=== PATIENT | female | born 1970 | race Caucasian/White ===

== ENCOUNTER → 2017-07-15 | Outpatient (CLI) | payer OTHER ==
--- NOTE | 2017-07-16 10:27 | US ---
EXAMINATION TYPE: US kidneys/renal and bladder DATE OF EXAM: 07/15/2017 COMPARISON: NONE CLINICAL HISTORY: R10.9 L flank pain N28.9 Hx Kidney Stones. EXAM MEASUREMENTS: Right Kidney: 10.1 x 5.0 x 4.5 cm Left Kidney: 10.6 x 5.2 x 5.9 cm Large body habitus. Right Kidney: No hydro or masses seen Left Kidney: No hydro or masses seen Bladder: wnl, incompletely distended with somewhat limited evaluation There is no evidence for hydronephrosis at this point in time. No nephrolithiasis is seen. No mert s are identified. The urinary bladder is anechoic. IMPRESSION: Normal renal ultrasound
== END | disposition home or self-care (01) ==
LOC: RADUSWWP 15:30
PROVIDERS: ATTEND Internal Medicine
DX: R10.9 Unspecified abdominal pain (principal); N28.9 Disorder of kidney and ureter, unspecified; Z87.442 Personal history of urinary calculi
CPT/HCPCS: 76770

== ENCOUNTER → 2017-08-12 | Day surgery (SDC) | payer OTHER ==
[2017-08-06 17:34] VITALS: BMI 40.6
[~2017-08-12] MED LIST: GLYCOPYRROLATE 0.2 MG/ML 2 ML VIAL ONE; LACTATED RINGERS 1,000 ML IV SCH; LIDOCAINE 1% 20 ML VIAL (10MG/ML) FOR IV START INTRADERMA PRN; LIDOCAINE 1% INJ 10MG/ML (20 ML MDV) ONE; PROPOFOL 10 MG/ML 20 ML VIAL IV ONE
--- NOTE | 2017-08-12 08:54 | P.GSHP ---
History of Present Illness H&P Date: 08/12/17 CHIEF COMPLAINT: GERD HISTORY OF PRESENT ILLNESS: The patient is a 46-year-old female who presents reports gastroesophageal reflux disease. Upper endoscopy was offered for further evaluation and management. PAST MEDICAL HISTORY: Please see list. PAST SURGICAL HISTORY: Please see list. MEDICATIONS: Please see list. ALLERGIES: Please see list. SOCIAL HISTORY: No illicit drug use FAMILY HISTORY: No reports of Crohn disease or ulcerative colitis. REVIEW OF ORGAN SYSTEMS: CONSTITUTIONAL: No reports of fevers or chills. GI: Denies any blood in stools or constipation. PHYSICAL EXAM: VITAL SIGNS: Stable GENERAL: Well-developed and pleasant in no acute distress. HEENT: No scleral icterus. Extraocular movements grossly intact. Moist buccal mucosa. NECK: Supple without lymphadenopathy. CHEST: Unlabored respirations. Equal bilateral excursions. CARDIOVASCULAR: Regular rate and rhythm. Distal 2+ pulses. ABDOMEN: Soft, nondistended. MUSCULOSKELETAL: No clubbing, cyanosis, or edema. ASSESSMENT: 1. Gastroesophageal reflux disease PLAN: 1. Recommend proceeding with an upper endoscopy Past Medical History Past Medical History: GERD/Reflux, Hyperlipidemia, Osteoarthritis (OA) Additional Past Medical History / Comment(s): NASAL ALLERGY SYMPTOMS. History of Any Multi-Drug Resistant Organisms: None Reported Past Surgical History: Orthopedic Surgery, Tubal Ligation, Uterine Ablation Additional Past Surgical History / Comment(s): HANS KNEE SCOPES Past Anesthesia/Blood Transfusion Reactions: No Reported Reaction Smoking Status: Never smoker - Past Family History Mother Family Medical History: Cancer, COPD Father Family Medical History: Cancer Medications and Allergies Home Medications Medication Instructions Recorded Confirmed Type Loratadine [Claritin] 10 mg PO DAILY 05/11/16 08/06/17 History Sertraline [Zoloft] 50 mg PO BID 05/11/16 08/06/17 History rOPINIRole HCL [Requip] 1 mg PO HS 05/11/16 08/06/17 History ALPRAZolam [Xanax] 0.5 mg PO TID PRN 07/29/17 08/06/17 History Atorvastatin [Lipitor] 10 mg PO HS 07/29/17 08/06/17 History Metoprolol Succinate (ER) [Toprol 25 mg PO HS 07/29/17 08/06/17 History Xl] Acetaminophen [Tylenol Extra 500 - 1,000 mg PO Q6H PRN 08/06/17 08/06/17 History Strength] Calcium Carbonate [Tums] 500 - 1,000 mg PO QID PRN 08/06/17 08/06/17 History Estrogen,Con/M-Progest Acet 1 each PO DAILY 08/06/17 08/06/17 History [Prempro 0.625-2.5 mg Tablet] Omeprazole Magnesium [Prilosec OTC] 20 mg PO DAILY PRN 08/06/17 08/06/17 History diphenhydrAMINE [Benadryl] 25 mg PO QID PRN 08/06/17 08/06/17 History Allergies Allergy/AdvReac Type Severity Reaction Status Date / Time No Known Allergies Allergy Verified 08/06/17 17:10
[2017-08-12 11:46] VITALS: TEMP 97.9
--- NOTE | 2017-08-12 12:27 | P.PCN ---
Date of Procedure: 08/12/17 Description of Procedure: PREOPERATIVE DIAGNOSIS: Gastroesophageal reflux disease. Morbid obesity. POSTOPERATIVE DIAGNOSIS: Morbid obesity. Gastritis. Gastroesophageal reflux disease. Diaphragmatic hiatal hernia without obstruction. Erosive esophagitis. Duodenitis. OPERATION: Esophagogastroduodenoscopy with biopsies along antrum. SURGEON: Renetta Bowre MD ANESTHESIA: MAC. INDICATIONS: The patient is a 46-year-old female who presents with a history of reflux disease. Benefits and risks of the procedure were described. Informed consent was obtained. DESCRIPTION: The patient was brought into the endoscopy suite and laid in the left lateral decubitus position. An Olympus gastroscope was passed along the posterior oropharynx down to the distal esophagus where the squamocolumnar junction was encountered at 36 cm from the incisors. The stomach was entered and no bile reflux was found. Additional findings are listed below. Biopsies with cold forceps were obtained of the antrum. The first through third portion of the duodenum was examined and unremarkable. Retroflexion of the scope confirmed Hill grade 2 lower esophageal valve. The squamocolumnar junction demostrated acute LA grade C erosive esophagitis. The stomach was desufflated. The patient tolerated the procedure well. FINDINGS: Squamocolumnar junction 36 cm from the incisors. Diaphragmatic hiatus at 34 cm. Hiatal hernia 2 cm. Hill grade 2 lower esophageal valve. LA grade C erosive esophagitis. Active duodenitis. Gastritis. RECOMMENDATIONS: Further recommendations pending results of pathology report. Upper endoscopy as needed. Will benefit from antireflux surgical procedure Plan - Discharge Summary New Discharge Prescriptions: No Action rOPINIRole HCL [Requip] 1 mg PO HS Sertraline [Zoloft] 50 mg PO BID Loratadine [Claritin] 10 mg PO DAILY Metoprolol Succinate (ER) [Toprol Xl] 25 mg PO HS ALPRAZolam [Xanax] 0.5 mg PO TID PRN PRN Reason: Anxiety Atorvastatin [Lipitor] 10 mg PO HS Acetaminophen [Tylenol Extra Strength] 500 - 1,000 mg PO Q6H PRN PRN Reason: Pain Estrogen,Con/M-Progest Acet [Prempro 0.625-2.5 mg Tablet] 1 each PO DAILY diphenhydrAMINE [Benadryl] 25 mg PO QID PRN PRN Reason: ALLERGY SX Omeprazole Magnesium [Prilosec OTC] 20 mg PO DAILY PRN PRN Reason: GERD Calcium Carbonate [Tums] 500 - 1,000 mg PO QID PRN PRN Reason: GERD Discharge Medication List Loratadine [Claritin] 10 mg PO DAILY 05/11/16 [History] Sertraline [Zoloft] 50 mg PO BID 05/11/16 [History] rOPINIRole HCL [Requip] 1 mg PO HS 05/11/16 [History] ALPRAZolam [Xanax] 0.5 mg PO TID PRN 07/29/17 [History] Atorvastatin [Lipitor] 10 mg PO HS 07/29/17 [History] Metoprolol Succinate (ER) [Toprol Xl] 25 mg PO HS 07/29/17 [History] Acetaminophen [Tylenol Extra Strength] 500 - 1,000 mg PO Q6H PRN 08/06/17 [ History] Calcium Carbonate [Tums] 500 - 1,000 mg PO QID PRN 08/06/17 [History] Estrogen,Con/M-Progest Acet [Prempro 0.625-2.5 mg Tablet] 1 each PO DAILY [History] Omeprazole Magnesium [Prilosec OTC] 20 mg PO DAILY PRN 08/06/17 [History] diphenhydrAMINE [Benadryl] 25 mg PO QID PRN 08/06/17 [History]
[2017-08-12 13:09] VITALS: BP 110/71; PULSE 69; RESP 18
== END | disposition home or self-care (01) ==
LOC: ORWHC2ENDO 10:16
PROVIDERS: ATTEND Surgery Plastic and Reconstructive Surgery
DX: K29.50 Unspecified chronic gastritis without bleeding (principal); K21.0 Gastro-esophageal reflux disease with esophagitis; K44.9 Diaphragmatic hernia without obstruction or gangrene; K29.80 Duodenitis without bleeding; E66.01 Morbid (severe) obesity due to excess calories; E78.5 Hyperlipidemia, unspecified; M19.90 Unspecified osteoarthritis, unspecified site; F41.9 Anxiety disorder, unspecified; F32.9 Major depressive disorder, single episode, unspecified; Z98.51 Tubal ligation status; Z79.899 Other long term (current) drug therapy
CPT/HCPCS: 81025; 88305; 88342; 43239; J2001; J2704

== ENCOUNTER → 2017-09-17 | Outpatient (CLI) | payer OTHER ==
[2017-09-17 10:39] VITALS: BP 111/65; PULSE 75; RESP 16; TEMP 98.6; BMI 39.7
--- NOTE | 2017-10-28 22:18 | P.PN ---
Subjective Progress Note Date: 09/17/17 DATE OF SERVICE: 09/17/2017 CHIEF COMPLAINT: Bariatric assessment HISTORY OF PRESENT ILLNESS: Spencer Juares is a 47-year-old female who presented to the bariatric center one month ago July 2017. She reports troubles with eating. She reports epigastric abdominal pain. She has been taking omeprazole with some improvement. Separately she does complain of lower abdominal pain. She has family history of irritable bowel syndrome also within her daughter. Her gallbladder is still present. She had completed an upper endoscopy. She is evaluating for sleeve gastrectomy. Now she presents for further evaluation and management. She has been undergoing medical supervised weight loss. At her height of 5 foot 4.25 inches, her ideal body weight is 144 pounds. Her presenting weight was 241 pounds. Body mass index was 41.2. Today she comes in weighing 233 pounds. Body mass index reduced to 39.8. She is 89 pounds overweight. PAST MEDICAL HISTORY: 1. Morbid obesity. 2. Body mass index 41.2 3. Seasonal ALLERGIES. 4. Obstructive sleep apnea. 5. Osteoarthritis of the hips 6. Hypertensive heart disease. 7. Gastroesophageal reflux disease 8. Anxiety. 9. Depression. 10. Hyperlipidemia. 11. Degenerative joint disease. 12. Asthma. 13. Restless leg syndrome. PAST SURGICAL HISTORY: 1. Tubal Ligation 2. Uterine ablation. 3. Orthopedic procedure. 4. Upper endoscopy. HOME MEDICATIONS: 1. Zoloft. 2. Requip. 3. Toprol XL. 4. Claritin. 5. Xanax. 6. Lipitor. 7. Omeprazole. ALLERGIES: Denies. SOCIAL HISTORY: No active tobacco use. FAMILY HISTORY: No family history of ulcerative colitis disease or Crohn's disease. She does have a family history of morbid obesity. She denies any lupus in her family. No reports of stomach or esophageal cancer. REVIEW OF ORGAN SYSTEMS: CONSTITUTIONAL: Her present weight was 241 pounds. At her height of 5 foot 4.25 inches, her ideal body weight is 144 pounds. She has lost 8 pounds in 1 month. HEENT: Denies any active troubles with hearing or vision. No troubles with swallowing. ENDOCRINE: No diabetes. No hypothyroidism. CARDIOVASCULAR: No reports of palpitations or heart attacks or chest pain. Has hypertension. Has hyperlipidemia. RESPIRATORY: Has daytime somnolence including snoring and sleep apnea. No asthma. Has seasonal ALLERGIES. GI: Denies any bright red blood per rectum or constipation. Does have gastroesophageal reflux disease. MUSCULOSKELETAL: Has lower back pain, left hip and right knee pain. No scoliosis. History of left heel spur. NEURO: Has headaches. No seizure disorders. PSYCH: Has depression without suicidal ideation. Has anxiety. RHEUMATOLOGIC: No lupus. No rheumatoid arthritis. HEMATOLOGIC: Denies any abnormal bleeding or bruising. No personal history of DVTs. SKIN: No rash. No skin cancer. PHYSICAL EXAM: VITAL SIGNS: Height 5 foot 4.25 inches, weight 233 pounds. BMI 39.8 Vital Signs Temp 98.6 F 09/17/17 10:19 Pulse 75 09/17/17 10:19 Resp 16 09/17/17 10:19 BP 111/65 09/17/17 10:19 Pulse Ox GENERAL: Well-developed female in no acute distress. HEENT: No scleral icterus. Extraocular movements grossly intact. Hears conversational speech. No nasal drainage. NECK: Supple without lymphadenopathy. CHEST: Nonlabored respirations with equal bilateral excursions. CARDIOVASCULAR: Regular rate. Distal 2+ pulses. ABDOMEN: Obese, soft, nontender, nondistended. MUSCULOSKELETAL: No clubbing, cyanosis. No pitting edema. Gross strength 5/5 distal lower extremities. NEURO: No focal or lateralizing signs. Cranial nerves 2 through 12 grossly within normal limits. PSYCH: Appropriate affect. Alert and oriented to person, place and time. SKIN: Good skin turgor. Well perfused. LABS: Laboratory Last Values WBC 6.2 k/uL (3.8-10.6) 07/29/17 17:14 RBC 4.35 m/uL (3.80-5.40) 07/29/17 17:14 Hgb 13.0 gm/dL (11.4-16.0) 07/29/17 17:14 Hct 39.9 % (34.0-46.0) 07/29/17 17:14 MCV 91.6 fL (80.0-100.0) 07/29/17 17:14 MCH 29.9 pg (25.0-35.0) 07/29/17 17:14 MCHC 32.6 g/dL (31.0-37.0) 07/29/17 17:14 RDW 13.2 % (11.5-15.5) 07/29/17 17:14 Plt Count 265 k/uL (150-450) 07/29/17 17:14 Sodium 138 mmol/L (137-145) 07/29/17 17:14 Potassium 4.3 mmol/L (3.5-5.1) 07/29/17 17:14 Chloride 108 mmol/L (98-107) H 07/29/17 17:14 Carbon Dioxide 24 mmol/L (22-30) 07/29/17 17:14 Anion Gap 6 mmol/L 07/29/17 17:14 BUN 21 mg/dL (7-17) H 07/29/17 17:14 Creatinine 0.80 mg/dL (0.52-1.04) 07/29/17 17:14 Est GFR (MDRD) Af Amer >60 (>60 ml/min/1.73 sqM) 07/29/17 17:14 Est GFR (MDRD) Non-Af >60 (>60 ml/min/1.73 sqM) 07/29/17 17:14 Glucose 92 mg/dL (74-99) 07/29/17 17:[address] Glu mg/dL 94 07/29/17 17:14 Hemoglobin A1c 4.9 % (4.0-6.0) 07/29/17 17:14 Calcium 9.0 mg/dL (8.4-10.2) 07/29/17 17:14 Iron 45 ug/dL (50-170) L 07/29/17 17:14 TIBC 337 ug/dL (228-460) 07/29/17 17:14 Iron Saturation 13.35 (12.00-45.00) 07/29/17 17:14 Ferritin 71.3 ng/mL (10.0-291.0) 07/29/17 17:14 Total Bilirubin 0.5 mg/dL (0.2-1.3) 07/29/17 17:14 AST 19 U/L (14-36) 07/29/17 17:14 ALT 24 U/L (9-52) 07/29/17 17:14 Alkaline Phosphatase 80 U/L (38-126) 07/29/17 17:14 Total Protein 6.9 g/dL (6.3-8.2) 07/29/17 17:14 Albumin 4.0 g/dL (3.5-5.0) 07/29/17 17:14 Triglycerides 132 mg/dL (<150) 07/29/17 17:14 Cholesterol 175 mg/dL (<200) 07/29/17 17:14 LDL Cholesterol, Calc 79 mg/dL (0-99) 07/29/17 17:14 HDL Cholesterol 70 mg/dL (40-60) H 07/29/17 17:14 Vitamin B1 47 ug/L (38-122) 07/29/17 17:14 Vitamin B12 250.0 pg/mL (200.0-944.0) 07/29/17:14 Vitamin D 25-Hydroxy 31.4 ng/mL (30.0-100.0) 07/29/17 17:14 Folate 7.3 ng/mL 07/29/17 17:14 TSH 1.330 mIU/L (0.465-4.680) 07/29/17 17:14 EKG EKG PERFORMED 07/29/17 17:14 Iron is low. HDL is high. EKG reviewed in normal sinus rhythm. FINDINGS: Squamocolumnar junction 36 cm from the incisors. Diaphragmatic hiatus at 34 cm. Hiatal hernia 2 cm. Hill grade 2 lower esophageal valve. LA grade C erosive esophagitis. Active duodenitis. Gastritis. Final Pathologic Diagnosis A. STOMACH, BIOPSY: CHRONIC GASTRITIS. HELICOBACTER IMMUNOPEROXIDASE STAIN IS PERFORMED TO EVALUATE FOR HELICOBACTER ORGANISMS AND IS NEGATIVE (CONTROLS APPROPRIATE). B. ESOPHAGUS, BIOPSY: SQUAMOGLANDULAR MUCOSA CONSISTENT WITH GASTROESOPHAGEAL JUNCTION DEMONSTRATING FEATURES SUGGESTIVE OF CHRONIC ESOPHAGITIS AND ACUTE AND CHRONIC INFLAMMATION OF THE GASTRIC TYPE GLANDULAR MUCOSA. NEGATIVE FOR INTESTINAL METAPLASIA. ASSESSMENT: 1. Morbid obesity. 2. Body mass index 41.2 down to 39.8. 3. Seasonal ALLERGIES. 4. Obstructive sleep apnea. 5. Osteoarthritis of the hips 6. Hypertensive heart disease. 7. Gastroesophageal reflux disease 8. Anxiety. 9. Depression. 10. Hyperlipidemia. 11. Degenerative joint disease. 12. Asthma. 13. Restless leg syndrome. 14. Family history of morbid obesity. 15. Diaphragmatic hiatal hernia. 16. Iron deficiency. PLAN: 1. She is looking into the sleeve gastrectomy however she has severe gastroesophageal reflux disease. She reported intolerance to omeprazole. As a result, she has been started on Zantac instead. 2. Alternatively, she is aware of that one bariatric procedure per lifetime is the goal. She complains of moderate gastroesophageal reflux disease with findings of a diaphragmatic hiatal hernia. Options including hiatal hernia repair initially was described. In the interim, she will still undergo medical supervised weight loss for her bariatric procedure. 3. Recommend iron supplement. 4. Completion of the evaluation and treatment for obstructive sleep apnea. 5. She is completing medical supervised weight loss for at least 6 months. 6. She has a family history of irritable bowel syndrome. Recommend Bentyl. 7. Also recommend evaluation for gallbladder disease with her family history of gallbladder disorder. Objective - Vital Signs Vital signs: Vital Signs Temp 98.6 F 09/17/17 10:19 Pulse 75 09/17/17 10:19 Resp 16 09/17/17 10:19 BP 111/65 09/17/17 10:19 Pulse Ox Intake & Output 09/16/17 09/17/17 09/17/17 18:59 06:59 18:59 Weight 105.885 kg
== END | disposition home or self-care (01) ==
LOC: BARWHC3 10:08
PROVIDERS: ATTEND Surgery Plastic and Reconstructive Surgery
DX: Z48.815 Encounter for surgical aftercare following surgery on the digestive system (principal); E66.01 Morbid (severe) obesity due to excess calories; G47.33 Obstructive sleep apnea (adult) (pediatric); M16.0 Bilateral primary osteoarthritis of hip; I11.9 Hypertensive heart disease without heart failure; K21.9 Gastro-esophageal reflux disease without esophagitis; F41.9 Anxiety disorder, unspecified; F32.9 Major depressive disorder, single episode, unspecified; E78.5 Hyperlipidemia, unspecified; M19.90 Unspecified osteoarthritis, unspecified site; J45.909 Unspecified asthma, uncomplicated; G25.81 Restless legs syndrome; K44.9 Diaphragmatic hernia without obstruction or gangrene; E61.1 Iron deficiency; Z68.39 Body mass index [BMI] 39.0-39.9, adult; Z79.899 Other long term (current) drug therapy; Z98.890 Other specified postprocedural states
CPT/HCPCS: 99211

== ENCOUNTER → 2017-11-09 | Outpatient (CLI) | payer OTHER ==
[2017-11-09 14:26] LABS: ALT 21 U/L (9-52); AST 21 U/L (14-36); Alkaline Phosphatase 87 U/L (38-126); Anion Gap 10 mmol/L; Blood Urea Nitrogen 24 mg/dL (7-17); Calcium 9.5 mg/dL (8.4-10.2); Carbon Dioxide 24 mmol/L (22-30); Chloride 106 mmol/L (98-107); Glucose 90 mg/dL (74-99); Sodium 140 mmol/L (137-145); Total Bilirubin 0.6 mg/dL (0.2-1.3); Total Protein 6.8 g/dL (6.3-8.2)
[2017-11-09 14:48] LABS: Basophils % (A) 1 %; Eosinophils # (A) 0.2 k/uL (0-0.7); Eosinophils % (A) 3 %; HCT 38.8 % (34.0-46.0); HGB 12.4 gm/dL (11.4-16.0); Lymphocytes # (A) 1.8 k/uL (1.0-4.8); Lymphocytes % (A) 27 %; MCH 29.4 pg (25.0-35.0); MCHC 32.1 g/dL (31.0-37.0); MCV 91.9 fL (80.0-100.0); Mean Platelet Volume 7.9; Monocytes # (A) 0.4 k/uL (0-1.0); Monocytes % (A) 6 %; Neutrophils # (A) 4.1 k/uL (1.3-7.7); Neutrophils % (A) 61 %; Platelet Count 237 k/uL (150-450); RBC 4.22 m/uL (3.80-5.40); RDW 12.4 % (11.5-15.5); WBC 6.7 k/uL (3.8-10.6)
== END | disposition home or self-care (01) ==
LOC: LABPAT 13:02
PROVIDERS: ATTEND Surgery Plastic and Reconstructive Surgery
DX: Z01.812 Encounter for preprocedural laboratory examination (principal)
CPT/HCPCS: 36415; 80053; 85025

== ENCOUNTER 2017-11-16 11:34 | Day surgery (SDC) | payer OTHER ==
--- NOTE | 2017-11-15 16:40 | P.GSHP ---
History of Present Illness H&P Date: 11/16/17 CHIEF COMPLAINT: Paraesophageal hiatal hernia with gastroesophageal reflux disease. HISTORY OF PRESENT ILLNESS: The patient is a 47-year-old female who presents with paraesophageal hiatal hernia. She has completed an esophageal manometry including upper endoscopy workup. Now she presents for surgical intervention. PAST MEDICAL HISTORY: Please see list. PAST SURGICAL HISTORY: Please see list. MEDICATIONS: Please see list. ALLERGIES: Please see list. SOCIAL HISTORY: No illicit drug use FAMILY HISTORY: No reports of Crohn disease or ulcerative colitis. REVIEW OF ORGAN SYSTEMS: CONSTITUTIONAL: No reports of fevers or chills. GI: Denies any blood in stools or constipation. PHYSICAL EXAM: VITAL SIGNS: Stable GENERAL: Well-developed pleasant and in no acute distress. HEENT: No scleral icterus. Extraocular movements grossly intact. Moist buccal mucosa. NECK: Supple without lymphadenopathy. CHEST: Unlabored respirations. Equal bilateral excursions. CARDIOVASCULAR: Regular rate and rhythm. Distal 2+ pulses. ABDOMEN: Soft, nondistended. No peritoneal signs. MUSCULOSKELETAL: No clubbing, cyanosis, or edema. ASSESSMENT: 1. Diaphragmatic paraesophageal hiatal hernia with severe gastroesophageal reflux disease. PLAN: 1. Recommend proceeding with a robotic laparoscopic paraesophageal hiatal hernia with possible mesh. 2. Benefits and risks of surgical intervention was discussed including possibility of open technique. 3. Inpatient hospitalization recommended of 2 nights or less. 4. DVT prophylaxis. 5. Antibiotic prophylaxis. Past Medical History Past Medical History: GERD/Reflux, Hyperlipidemia, Osteoarthritis (OA) Additional Past Medical History / Comment(s): hiatal hernia, abdominla pain with eatting, anemia, History of Any Multi-Drug Resistant Organisms: None Reported Past Surgical History: Orthopedic Surgery, Tubal Ligation, Uterine Ablation Additional Past Surgical History / Comment(s): HANS KNEE arthroscopy, Past Anesthesia/Blood Transfusion Reactions: No Reported Reaction Smoking Status: Never smoker - Past Family History Mother Family Medical History: Cancer Father Family Medical History: Cancer Brother(s) Family Medical History: Cancer Medications and Allergies Home Medications Medication Instructions Recorded Confirmed Type ALPRAZolam [Xanax] 0.5 mg PO TID PRN 07/29/17 11/05/17 History Atorvastatin [Lipitor] 10 mg PO HS 07/29/17 11/05/17 History Estrogen,Con/M-Progest Acet 1 each PO DAILY 08/06/17 11/05/17 History [Prempro 0.625-2.5 mg Tablet] diphenhydrAMINE [Benadryl] 25 mg PO DAILY PRN 08/06/17 11/05/17 History Omeprazole 40 mg PO DAILY #30 capsule. 08/12/17 11/05/17 Rx Ferrous Sulfate [Feosol] 325 mg PO DAILY 09/17/17 11/05/17 History Dicyclomine [Bentyl] 10 mg PO QID PRN 11/05/17 11/05/17 History L.acidoph,Paracasei, B.lactis 1 each PO HS 11/05/17 11/05/17 History [Probiotic] Loratadine [Claritin] 10 mg PO HS 11/05/17 11/05/17 History Multivitamins, Thera [Multivitamin 1 tab PO DAILY 11/05/17 11/05/17 History (formulary)] Sertraline [Zoloft] 100 mg PO BID 11/05/17 11/05/17 History rOPINIRole HCL [Requip] 2 mg PO HS 11/05/17 11/05/17 History Allergies Allergy/AdvReac Type Severity Reaction Status Date / Time No Known Allergies Allergy Verified 11/05/17 11:44
[~2017-11-16 11:34] MED LIST changes: +CHLORHEXIDINE GLUCONATE 15 ML CUP MUCOUS MEM ONE; +ENOXAPARIN 40 MG/0.4 ML SYRINGE SQ STA; -GLYCOPYRROLATE 0.2 MG/ML 2 ML VIAL ONE; -LACTATED RINGERS 1,000 ML IV SCH; -LIDOCAINE 1% 20 ML VIAL (10MG/ML) FOR IV START INTRADERMA PRN; -LIDOCAINE 1% INJ 10MG/ML (20 ML MDV) ONE; +MIDAZOLAM 2 MG/2 ML VIAL IV PRN; +MORPHINE SULFATE 4 MG/ML SYRINGE IV PRN; -PROPOFOL 10 MG/ML 20 ML VIAL IV ONE; +ceFAZolin IN SWFI 2 GM/20 ML SYRINGE IVP ONE
[2017-11-16] MEDS: LACTATED RINGERS 1,000 ML IV SCH ×2 (12:12→12:23)
[2017-11-16] MEDS ORDERED: LIDOCAINE 1% 20 ML VIAL (10MG/ML) FOR IV START INTRADERMA ONE (12:13)
[2017-11-16] MEDS: DEXAMETHASONE SOD PHOSPHATE 10 MG/ML 1 ML VIAL IV ONE (12:33)
[2017-11-16] MEDS: ONDANSETRON 4 MG/2 ML VIAL IVP ONE ×2 (12:34→20:46)
[2017-11-16] MEDS: PANTOPRAZOLE 40 MG/10 ML VIAL IV STA (12:35)
[2017-11-16] MEDS: ENOXAPARIN 40 MG/0.4 ML SYRINGE SQ ONE (12:55)
[2017-11-16] MEDS ORDERED: GLYCOPYRROLATE 0.2 MG/ML 2 ML VIAL ONE (17:28)
[2017-11-16] MEDS ORDERED: ePHEDrine SULFATE/0.9% NACL/PF 50 MG/5 ML SYRINGE IV ONE (17:28)
[2017-11-16] MEDS ORDERED: fentaNYL (PF) 50 MCG/ML 2 ML AMP ONE (17:28)
[2017-11-16] MEDS ORDERED: SUCCINYLCHOLINE CHLORIDE 100 MG/5 ML SYR IV ONE (17:28)
[2017-11-16] MEDS ORDERED: HYDROmorphone (PF) 1 MG/ML ONE (17:28)
[2017-11-16] MEDS ORDERED: LIDOCAINE 1% INJ 10MG/ML (20 ML MDV) ONE (17:28)
[2017-11-16] MEDS ORDERED: MIDAZOLAM 2 MG/2 ML VIAL ONE (17:28)
[2017-11-16] MEDS ORDERED: ROCURONIUM BROMIDE 10 MG/ML 10 ML VIAL IV ONE (17:28)
[2017-11-16] MEDS ORDERED: NEOSTIGMINE 1 MG/ML 10 ML VIAL ONE (17:28)
[2017-11-16] MEDS ORDERED: PROPOFOL 10 MG/ML 20 ML VIAL IV ONE (17:28)
[2017-11-16] MEDS ORDERED: BUPIVACAINE (PF) 0.25% 30 ML VIAL SQ ONE ×2 (17:53→18:25)
[2017-11-16] MEDS ORDERED: LACTATED RINGERS 1,000 ML IV ONE (18:27)
[2017-11-16] MEDS ORDERED: NALOXONE 0.4 MG/ML 1 ML VIAL IV PRN (20:19)
[2017-11-16] MEDS ORDERED: ONDANSETRON 4 MG/2 ML VIAL IVP PRN (20:19)
[2017-11-16] MEDS ORDERED: HYDROmorphone 0.5 MG/0.5 ML SYRINGE IVP PRN (20:19)
[2017-11-16] MEDS ORDERED: diphenhydrAMINE 50 MG/ML 1 ML VIAL IVP PRN (20:19)
[2017-11-16] MEDS ORDERED: 0.9% NACL WITH KCL 20 MEQ/L 1,000 ML IV SCH (20:30)
[2017-11-16] MEDS: DEXAMETHASONE SOD PHOSPHATE 10 MG/ML 1 ML VIAL IV STA (20:33)
[2017-11-16] MEDS: SCOPOLAMINE 1.5MG/72HR PATCH TRANSDERM ONE (20:35)
[2017-11-16] MEDS: KETOROLAC 30 MG/ML 1 ML VIAL IVP SCH (20:41)
[2017-11-16] MEDS ORDERED: PROMETHAZINE INJ 25 MG/ML 1 ML VIAL IVPB ONE (20:54)
[2017-11-16] MEDS ORDERED: SODIUM FERRIC GLUCONAT-SUCROSE 125 MG in SODIUM CHLORIDE 0.9% 100 ML IVPB SCH (21:00)
[2017-11-16 21:46] VITALS: BMI 38.7
[2017-11-16] MEDS ORDERED: SODIUM CHLORIDE 0.9% 1,000 ML IV SCH (22:15)
[2017-11-16] MEDS: SIMETHICONE 40 MG/0.6 ML DROPS 2,000 MG/30 ML BOTTLE PO SCH (23:25)
[2017-11-16] MEDS: HYOSCYAMINE ORAL DROPS 1.875 MG/15 ML BOTTLE PO SCH (23:26)
[2017-11-16] MEDS: AMPICILLIN-SULBACTAM 3 GM in SODIUM CHLORIDE 0.9% 100 ML IVPB SCH (23:31)
[2017-11-17 01:28] VITALS: RESP 18
[2017-11-17] MEDS: HYDROcodone/APAP 15 ML SOLUTION PO PRN ×3 (01:35→13:45)
[2017-11-17] MEDS: KETOROLAC 30 MG/ML 1 ML VIAL IVP SCH ×2 (01:58→10:20)
[2017-11-17] MEDS: DEXAMETHASONE SOD PHOSPHATE 4 MG/ML 1 ML VIAL IV SCH ×2 (02:02→07:28)
--- NOTE | 2017-11-17 04:13 | P.PCN ---
Date of Procedure: 11/16/17 Preoperative Diagnosis: Gastroesophageal reflux disease, paraesophageal hiatal hernia Postoperative Diagnosis: same Procedure(s) Performed: Robotic-assisted repair of incarcerated paraesophageal hiatal hernia 5 cm x 5 cm with [place] BioPatch A 8 x 8 cm, intraoperative EGD Implants: [place] BioPatch A, 8 x 8 cm Anesthesia: GETA, local Surgeon: Renetta Bower Estimated Blood Loss (ml): 10 Pathology: none sent Condition: stable Disposition: floor Operative Findings: 1. Incarcerated midline periesophageal diaphragmatic hiatal hernia, axial length 5 cm, width 5 cm 2. Intraesophageal length of 3 cm obtained 3. Moderate dissection into mediastinum for reduction of incarcerated hernia 4. Intraoperative EGD confirmed no intramucosal defects on esophagus stomach
[2017-11-17] MEDS: SIMETHICONE 40 MG/0.6 ML DROPS 2,000 MG/30 ML BOTTLE PO SCH ×2 (05:22→11:57)
[2017-11-17] MEDS: HYOSCYAMINE ORAL DROPS 1.875 MG/15 ML BOTTLE PO SCH ×2 (05:22→11:57)
[2017-11-17] MEDS: AMPICILLIN-SULBACTAM 3 GM in SODIUM CHLORIDE 0.9% 100 ML IVPB SCH (05:22)
[2017-11-17 06:43] LABS: Basophils % (A) 0 %; Eosinophils % (A) 0 %; HCT 35.7 % (34.0-46.0); HGB 11.7 gm/dL (11.4-16.0); Lymphocytes # (A) 0.6 k/uL (1.0-4.8); Lymphocytes % (A) 7 %; MCH 30.3 pg (25.0-35.0); MCHC 32.7 g/dL (31.0-37.0); MCV 92.5 fL (80.0-100.0); Mean Platelet Volume 7.6; Monocytes # (A) 0.2 k/uL (0-1.0); Monocytes % (A) 3 %; Neutrophils # (A) 7.7 k/uL (1.3-7.7); Neutrophils % (A) 90 %; Platelet Count 226 k/uL (150-450); RBC 3.86 m/uL (3.80-5.40); RDW 12.2 % (11.5-15.5); WBC 8.6 k/uL (3.8-10.6)
[2017-11-17] MEDS: DEXAMETHASONE SOD PHOSPHATE 10 MG/ML 1 ML VIAL IV ONE (06:53)
[2017-11-17] MEDS: ONDANSETRON 4 MG/2 ML VIAL IVP ONE (06:53)
[2017-11-17] MEDS: SCOPOLAMINE 1.5MG/72HR PATCH TRANSDERM ONE (06:54)
[2017-11-17] MEDS: DEXAMETHASONE SOD PHOSPHATE 10 MG/ML 1 ML VIAL IV STA (06:54)
[2017-11-17 06:57] LABS: Anion Gap 9 mmol/L; Blood Urea Nitrogen 13 mg/dL (7-17); Carbon Dioxide 25 mmol/L (22-30); Chloride 107 mmol/L (98-107); Magnesium 1.9 mg/dL (1.6-2.3); Phosphorus 2.9 mg/dL (2.5-4.5); Sodium 141 mmol/L (137-145)
[2017-11-17] MEDS: ENOXAPARIN 40 MG/0.4 ML SYRINGE SQ ONE (06:57)
[2017-11-17] MEDS: PANTOPRAZOLE 40 MG/10 ML VIAL IV STA (06:58)
[2017-11-17] MEDS ORDERED: 0.9% NACL WITH KCL 20 MEQ/L 1,000 ML IV SCH (08:00)
--- NOTE | 2017-11-17 08:47 | FL ---
EXAMINATION TYPE: FL UGI DATE OF EXAM: 11/17/2017 LIMITED UGI-ESOPHAGRAM: CLINICAL HISTORY: Bariatric surgery. TECHNIQUE: Limited esophagram is performed utilizing 50 oz of Omnipaque 350. A total of 25 seconds of fluoroscopic time was utilized during procedure with 10 images saved. FINDINGS: The patient swallowed contrast without difficulty and minimal delay at the gastroesophagea l junction. Esophageal peristalsis and motility are within normal limits. There is minimally delayed flow of contrast along the diaphragmatic hiatus into the stomach, there is no evidence of contrast e xtravasation to suggest leak. No persistent hiatal hernia is seen. Patient remains asymptomatic. IMPRESSION: Minimally delayed propulsion at the gastroesophageal junction likely related to postopera tive edema. No evidence of leak.
[2017-11-17] MEDS ORDERED: ENOXAPARIN 40 MG/0.4 ML SYRINGE SQ SCH (09:00)
[2017-11-17] MEDS ORDERED: PANTOPRAZOLE 40 MG/10 ML VIAL IV SCH (09:00)
[2017-11-17] MEDS: ALBUTEROL NEBULIZED 2.5 MG/3 ML INHALATION SCH ×2 (09:07→12:32)
--- NOTE | 2017-11-17 11:17 | P.PN ---
<Ellie Ha - Last Filed: 11/17/17 11:10> Subjective Progress Note Date: 11/17/17 47-year-old female seen and evaluated. Patient states she has been up ambulating in the hallway this morning. States is not having any difficulty in swallowing saliva or liquids. The upper GI no evidence of leak mild delayed propulsion at the gastroesophageal junction likely related to postoperative edema Patient is postop 16 of November Robotic-assisted repair of incarcerated paraesophageal hiatal hernia 5 cm x 5 cm with [place] BioPatch A 8 x 8 cm, intraoperative EGD done for gastroesophageal reflux disease symptomatic Objective - Vital Signs Vital signs: Vital Signs Temp 98.2 F 11/17/17 07:36 Pulse 86 11/17/17 09:19 Resp 18 11/17/17 07:36 BP 121/67 11/17/17 07:36 Pulse Ox 95 11/17/17 09:10 Intake & Output 11/16/17 11/17/17 11/17/17 18:59 06:59 18:59 Intake Total 1900 920 200 Output Total 10 1300 Balance 1890 -380 200 Weight 102.5 kg 102.5 kg Intake: IV 1900 200 Oral 720 200 Output: Urine 1300 Estimated Blood Loss 10 Other: # Voids 1 - Exam Physical exam 47-year-old female sitting up in bed states that she just returned from walking in the hallway denies dizziness lightheadedness shortness of breath or difficulty in swallowing Lungs adequate air movement bilaterally on room air sats are 95% on room air Heart S1-S2 audible regular Abdomen surgical incision sites dry no drainage soft surgical tenderness appropriate a few hypoactive bowel tones states urinating no difficulty tolerating clear liquid diet no difficulty swallowing Extremities no edema - Labs CBC & Chem 7: 11/17/17 06:20 11/17/17 06:20 Labs: Abnormal Lab Results - Last 24 Hours (Table) 11/17/17 Range/Units 06:20 Lymphocytes # 0.6 L (1.0-4.8) k/uL Assessment and Plan Assessment: Impression Paraesophageal hiatal hernia with gastroesophageal reflux disease. Robotic-assisted repair of incarcerated paraesophageal hiatal hernia 5 cm x 5 cm with [place] BioPatch A 8 x 8 cm, intraoperative EGD done on November 16 Plan Continue postop surgical care diaz clear liquid diet as ordered Further recommendations pending Decadron 4 mg IV every 6 as ordered DVT and GI prophylaxis The above impression and plan of care have been discussed and directed by signing physician. Ellie Ha nurse practitioner acting as scribe for signing physician. <Renetta Bower - Last Filed: 11/17/17 14:30> Objective - Vital Signs Vital signs: Vital Signs Temp 97.9 F 11/17/17 11:50 Pulse 84 11/17/17 12:43 Resp 18 11/17/17 11:50 BP 124/73 11/17/17 11:50 Pulse Ox 94 L 11/17/17 11:50 Intake & Output 11/16/17 11/17/17 11/17/17 18:59 06:59 18:59 Intake Total 1900 920 290 Output Total 10 1300 Balance 1890 -380 290 Weight 102.5 kg 102.5 kg 102.5 kg Intake: IV 1900 200 Oral 720 290 Output: Urine 1300 Estimated Blood Loss 10 Other: # Voids 1 - Labs CBC & Chem 7: 11/17/17 06:20 11/17/17 06:20 Labs: Abnormal Lab Results - Last 24 Hours (Table) 11/17/17 Range/Units 06:20 Lymphocytes # 0.6 L (1.0-4.8) k/uL
[2017-11-17 11:51] VITALS: BP 124/73; TEMP 97.9
[2017-11-17 12:43] VITALS: PULSE 84
--- NOTE | 2017-11-17 14:01 | P.DS ---
Providers Expected date of discharge: 11/17/17 Attending physician: Renetta Bower Primary care physician: [facility] Course: -year-old female who presented on the day of admission to undergo an elective robotic-assisted repair of incarcerated periesophageal hiatal hernia for symptomatic esophageal reflux symptoms postop 16 of November Robotic-assisted repair of incarcerated paraesophageal hiatal hernia 5 cm x 5 cm with [place] BioPatch A 8 x 8 cm, intraoperative EGD done for gastroesophageal reflux disease symptomatic On the day of discharge patient was up ambulatory on the unit on room air tolerating hattie clear liquid diet surgical site dressings dry afebrile no difficulty in swallowing patient was felt to be hemodynamically stable and appropriate proceed with a discharge It was reinforced to the patient that she could not return to work until cleared by Dr. Delvalle and a follow-up office visit Impression Paraesophageal hiatal hernia with gastroesophageal reflux disease. Robotic-assisted repair of incarcerated paraesophageal hiatal hernia 5 cm x 5 cm with [place] BioPatch A 8 x 8 cm, intraoperative EGD done on November 16 The above impression and plan of care have been discussed and directed by signing physician. Ellie Ha nurse practitioner acting as scribe for signing physician. Plan - Discharge Summary New Discharge Prescriptions: New HYDROcodone/APAP [[place] Elixir 7.5-325Mg/15Ml] 30 ml PO Q6HR PRN #300 solution PRN Reason: Severe Pain Hyoscyamine Oral Drops [Levsin Drops] 0.125 mg PO Q6HR ml Simethicone 40 mg/0.6 ml Drops [Mylicon Drops] 40 mg PO Q6HR ml Bisacodyl [Dulcolax] 5 mg PO DAILY PRN #10 tablet.dr PRN Reason: Constipation Ondansetron Odt [Zofran Odt] 4 mg PO Q8HR PRN #9 tab PRN Reason: Nausea Simethicone 40 mg/0.6 ml Drops [Mylicon Drops] 40 mg PO PCHS PRN #30 ml PRN Reason: Gas Continue ALPRAZolam [Xanax] 0.5 mg PO TID PRN PRN Reason: Anxiety Loratadine [Claritin] 10 mg PO HS rOPINIRole HCL [Requip] 2 mg PO HS Sertraline [Zoloft] 100 mg PO BID Discontinued Atorvastatin [Lipitor] 10 mg PO HS Estrogen,Con/M-Progest Acet [Prempro 0.625-2.5 mg Tablet] 1 each PO DAILY Omeprazole 40 mg PO DAILY #30 capsule. Ferrous Sulfate [Feosol] 325 mg PO DAILY Dicyclomine [Bentyl] 10 mg PO QID PRN PRN Reason: IBS Multivitamins, Thera [Multivitamin (formulary)] 1 tab PO DAILY L.acidoph,Paracasei, B.lactis [Probiotic] 1 each PO HS Discharge Medication List ALPRAZolam [Xanax] 0.5 mg PO TID PRN 07/29/17 [History] Loratadine [Claritin] 10 mg PO HS 11/05/17 [History] Sertraline [Zoloft] 100 mg PO BID 11/05/17 [History] rOPINIRole HCL [Requip] 2 mg PO HS 11/05/17 [History] Bisacodyl [Dulcolax] 5 mg PO DAILY PRN #10 tablet. 11/17/17 [Rx] HYDROcodone/APAP [[place] Elixir 7.5-325Mg/15Ml] 30 ml PO Q6HR PRN #300 solution 11/17/17 [Rx] Hyoscyamine Oral Drops [Levsin Drops] 0.125 mg PO Q6HR ml 11/17/17 [Rx] Ondansetron Odt [Zofran Odt] 4 mg PO Q8HR PRN #9 tab 11/17/17 [Rx] Simethicone 40 mg/0.6 ml Drops [Mylicon Drops] 40 mg PO PCHS PRN #30 ml [Rx] Simethicone 40 mg/0.6 ml Drops [Mylicon Drops] 40 mg PO Q6HR ml 11/17/17 [Rx] Follow up Appointment(s)/Referral(s): Renetta Bower MD [STAFF PHYSICIAN] - 12/08/17 3:40 pm Patient Instructions/Handouts: *Sur[facility] - ([facility]) Lap Hattie Fundiplication Post-Op Instructions, Adult Laparoscopic Hattie Fundoplication ( DC) Activity/Diet/Wound Care/Special Instructions: No tub bath for six weeks. Shower daily. No lifting over 4 pounds for the next 6 weeks. May use ice packs to surgical site. No driving while taking narcotic for pain. hattie clear liquid diet No straws May not return to work until cleared with Dr. Bower and a follow-up office visit Discharge Disposition: HOME SELF-CARE
--- NOTE | 2017-11-17 14:29 | P.PN ---
Progress Note - Text Progress Note Date: 11/17/17 To Whom It May Concern, Spencer Juares is under my surgical care. She had abdominal surgery, 2017. She may return to work with restrictions of no lifting over 4 pounds November 23. She will have restrictions until December 14. Regards, Renetta Bower MD
--- NOTE | 2017-11-18 17:01 | CDI ---
Outpatient Documentation Clarification Form Date: 11/18/17 CDS/Tug Boat Captain Name: Clarissa Matias Phone: If any questions, call Isidra Ortega [employer] at [phone] Patient Name: Spencer Juares Admit Date: 11/16/17 Discharge Date: 11/17/17 ATTENTION: The [facility] Coding Staff appreciate your assistance in clarifying documentation. Please respond to the clarification below the line at the bottom and electronically sign. The [facility] Coding staff will review the response and follow-up if needed. Please note: Queries are made part of the Legal Health Record. If you have any questions, please contact the [employer]. Dear Dr. Bower Please provide the detailed procedure description. Thank you for your kind consideration. PLEASE SEE COMPLETED REPORT MTDD
--- NOTE | 2017-11-22 13:31 | P.OP ---
Date of Procedure: 11/16/17 Description of Procedure: SURGEON: JULIAN NEWMAN MD COURT STENOGRAPHER: 1. Candis Ragland. PREOPERATIVE DIAGNOSES: 1. Gastroesophageal reflux disease. 2. Paraesophageal hiatal hernia. 3. Hyperlipidemia. 4. Anxiety. 5. Depression. 6. Epigastric abdominal pain. 7. Morbid obesity due to excess calories. 8. BMI 38.8. POSTOPERATIVE DIAGNOSES: 1. Gastroesophageal reflux disease. 2. Paraesophageal hiatal hernia, incarcerated. 3. Hyperlipidemia. 4. Anxiety. 5. Depression. 6. Epigastric abdominal pain. 7. Morbid obesity due to excess calories. 8. BMI 38.8. OPERATION: 1. Robotic-assisted da Evy Xi laparoscopic reduction and repair of incarcerated midline paraesophageal hiatal hernia, 5 x 5 cm, with [place] Biopatch A 8 x 8 cm. 2. Intraoperative esophagogastroduodenoscopy ANESTHESIA: General with local anesthetic. ESTIMATED BLOOD LOSS: 10 mL Pathology: None. Implants: [place] BioPatch A, 8 x 8 cm COMPLICATIONS: None. Condition: stable Disposition: floor Operative Findings: 1. Incarcerated midline periesophageal diaphragmatic hiatal hernia, axial length 5 cm, width 5 cm 2. Intraesophageal length of 3 cm obtained 3. Moderate dissection into mediastinum for reduction of incarcerated hernia 4. Intraoperative EGD confirmed no intramucosal defects in esophagus or stomach 5. 56-[place] bougie passed to address upper esophageal hypertensive sphincter 6. Negative leak test. INDICATIONS: The patient is a 47-year-old female who presents with regurgitation, gastroesophageal reflux and a symptomatic diaphragmatic hiatal hernia. Preoperative workup including upper endoscopy demonstrated a Hill grade 4 lower esophageal valve. Given the severity of her symptoms, she had elected for surgical intervention. Benefits and risks including bleeding, infection, recurrence, dysphagia, injury to the lung, need for further surgery was described at length. Informed consent was obtained. DESCRIPTION: The patient was brought into the operating room and placed in supine position. Preoperatively she had received heparin subcutaneously for DVT prophylaxis. After general induction, the abdomen was prepped and draped in standard sterile fashion. The patient had previously voided prior to coming to the operating room. [place] draping was placed along the abdomen. A timeout protocol was confirmed with the surgical team, for which the patient's name, procedure to be performed including DVT prophylaxis with bilateral SCDs, and preoperative antibiotics were also confirmed. A robotic da Evy Xi system was prepped and primed. At 12 cm from the xiphoid to just below the umbilicus, proposed port sites were marked with indelible marker along the left axillary line, left mid-clavicular line with each ports were marked 10 cm from each other. A 5 mm 0 degrees laparoscopic trocar entry was performed along the left upper quadrant. The abdomen was insufflated to 15 mmHg pressure he tolerated well. Diagnostic laparoscopy demonstrated no injury to bowel, viscera, or mesentery. The gallbladder was unremarkable. The liver surface was unremarkable. No injury had occurred to the small bowel or viscera. Along the hiatus, a defect was found anteriorly. Next, one 8 mm robotic port was placed along the right upper abdomen. An 8-mm port was were placed along the left lateral abdominal wall. The camera 8-mm port was maintained along the epigastrium. Another 12 mm port was placed along the left upper abdominal wall after exchanging the 5 mm port. Please note that the ports were placed at least 20 cm away from the target anatomy. Care was taken to check that each robotic arm were safely away from collision with the bed or the patient. At the epigastrium, a medium sized [place] liver retractor was placed under direct visualization with the Iron Acetylene Torch Burner placed over the right shoulder of the patient. The additional third robotic arm was placed along the left aspect of the patient. The patient was repositioned in reverse Trendelenburg position at 14-degrees after lowering the bed. The robot was docked at the left side of the patient. Using a grasper for arm 3, a grasper for arm 1, including vessel sealer for arm 2, the robotic system was docked and primed as described. Instruments were interchanged by the classroom assistant. I had sat at the console. The gastrohepatic ligament was cleaved using a vessel sealer. Next, the phrenoesophageal ligament was mobilized and the distal esophagus was mobilized circumferentially. An incarcerated hernia with a large lipoma was found along the mediastinum at the gastroesophageal junction. As a result, deep dissection well into the mediastinum was needed to free the entire esophagus. The left and right crura was identified. A moderate sized midline large hiatal hernia and sac was found incarcerated into the mediastinum. Significant mobilization of the distal to mid esophagus into the mediastinum was performed. Circumferentially, the hernia sac was excised and brought into the abdominal cavity. Care was taken to avoid any gastrotomy to the incarcerated upper pole of the stomach. The measured defect was consistent with 5 cm axial length and 5 cm in width. After extensive dissection, the distal esophagus at least 3 cm was brought into the abdominal cavity. Once the hiatus and crura was dissected, 2-0 VLOC suture was placed as a running suture to re-approximate the diaphragmatic hiatus posteriorly. To buttress the repair, a [place] Biopatch A 8 x 8 cm was prepared along the back table and used to reinforce the repair as an underlay, posteriorly. The mesh was placed along the crural repair and tagged using horizontal mattress sutures using 2-0 VLOC. I went to the head of the bed to perform intraoperative esophagogastroduodenoscopy. A 56-[place] bougie was carefully placed along the posterior oropharynx through the hiatus as a visual aid for hiatus closure and then removed. I went to the head of the bed to perform intraoperative esophagogastroduodenoscopy. An Olympus gastroscope was passed through posterior oropharynx, where the GE junction was found distal to the diaphragmatic hiatus. The intra-abdominal esophageal length obtained during the case was over 2 cm. The stomach was entered. The duodenum was unremarkable. Retroflexion of the scope confirmed a Hill grade 1 lower esophageal valve. The stomach had been desufflated. No evidence of leaks were found either of the mucosal defects of the esophagus or stomach. The hiatal closure was consistent with a 56 [place] bougie as a bougie was passed. This concluded the endoscopic portion of the case. The robot was undocked from the patient. I re-scrubbed into the case. All instruments and pneumoperitoneum were evacuated from the abdominal cavity. Incisions were reapproximated using 4-0 Monocryl in an interrupted subcuticular fashion. The 12-mm port site fascial defect was reinforced using 0 Vicryl Lester Blood. Dermabond was applied to the skin. Local anesthetic was infiltrated in all wounds for postop analgesia. Multiple intra-abdominal films were obtained. At the end of the procedure, needle, sponge, and instrument count was verified correct by the surgical services assistant. The patient had tolerated the procedure well and was taken to the postanesthesia unit in stable condition. Intraoperative films were reviewed with the patient's family who were pleased with the level of care. Console time 72 minutes
== END 2017-11-17 15:08 | disposition home or self-care (01) ==
LOC: OR 11:34 → 6PED 20:00 → OR 11-17 15:08
PROVIDERS: ATTEND Surgery Plastic and Reconstructive Surgery
DX: K44.0 Diaphragmatic hernia with obstruction, without gangrene (principal); K21.9 Gastro-esophageal reflux disease without esophagitis; K22.4 Dyskinesia of esophagus; E78.5 Hyperlipidemia, unspecified; M19.90 Unspecified osteoarthritis, unspecified site; F32.9 Major depressive disorder, single episode, unspecified; F41.9 Anxiety disorder, unspecified; E66.01 Morbid (severe) obesity due to excess calories; Z68.38 Body mass index [BMI] 38.0-38.9, adult; D64.9 Anemia, unspecified; Z79.890 Hormone replacement therapy; Z79.899 Other long term (current) drug therapy; Z98.51 Tubal ligation status
CPT/HCPCS: 94640 ×2; 94760; 86900; 86901; 80051; 82310; 82565; 83735 ×2; 84100; 84520; 85025; 86850; 74240; 43282; C1781; J2250; J1100 ×2; J2550; J2710; Q9967; J2405; J2001; J1650 ×2; J3010; J1885 ×2; J2916; J1170; J0295 ×2; J0330; J2704; C9113 ×2; J0690

== ENCOUNTER → 2017-11-20 | Outpatient (CLI) | payer OTHER ==
[2017-11-20 11:28] VITALS: BP 164/78; PULSE 79; TEMP 97.1; BMI 38.2
--- NOTE | 2017-11-20 12:44 | P.PN ---
Progress Note - Text Progress Note Date: 11/20/17 To Whom It May Concern: Spencer Juares is under my surgical supervision. She may return to work, 2017, with strict precautions of no lifting over 4 pounds in 4 weeks. Restrictions will be lifted December 14. Please contact us if any questions. Regards, Renetta Bower MD
== END | disposition home or self-care (01) ==
LOC: BARWHC3 10:44
PROVIDERS: ATTEND Surgery Plastic and Reconstructive Surgery
DX: Z48.815 Encounter for surgical aftercare following surgery on the digestive system (principal)
CPT/HCPCS: 99211

== ENCOUNTER → 2018-03-12 | Outpatient (CLI) | payer OTHER ==
[2018-03-12 13:08] LABS: HCT 39.9 % (34.0-46.0); HGB 13.6 gm/dL (11.4-16.0); MCH 30.7 pg (25.0-35.0); MCV 90.2 fL (80.0-100.0); Mean Platelet Volume 7.5; Platelet Count 281 k/uL (150-450); RBC 4.43 m/uL (3.80-5.40); RDW 12.2 % (11.5-15.5)
[2018-03-12 13:22] LABS: C Reactive Protein 5.8 mg/L (<10.0); Uric Acid 4.5 mg/dL (3.7-7.4)
[2018-03-12 14:52] LABS: Erythrocyte Sedimentation Rate 8 mm/hr (0-20)
== END | disposition home or self-care (01) ==
LOC: LABWHC1 12:56
PROVIDERS: ATTEND Physician Assistant
DX: M13.0 Polyarthritis, unspecified (principal); M10.9 Gout, unspecified
CPT/HCPCS: 36415; 84550; 85027; 85652; 86140

== ENCOUNTER → 2018-03-23 | Outpatient (CLI) | payer OTHER ==
--- NOTE | 2018-03-23 10:22 | US ---
EXAMINATION TYPE: US pelvis complete transvag DATE OF EXAM: 03/23/2018 COMPARISON: NONE CLINICAL HISTORY: R93.5 N85.9 Abnormality on MRI. Pelvic pain, uterine lesion on recent MRI, cervical ablation 2013 TECHNIQUE: Transvaginal (TV) and Transabdominal (TA) Date of LMP: unknown EXAM MEASUREMENTS: Uterus: 7.3 x 4.9 x 5.6 cm Endometrial Stripe: 0.6 cm Right Ovary: Left Ovary: unable to visualize 1. Uterus: Anteverted 2. Endometrium: complex fluid collection 3. Right Ovary/right adnexa: cystic area right adnexa = 2.5 x 1.7 x 2.0cm, unable to identify any ov argelia tissue 4. Left Ovary: Obscured by overlying bowel gas 5. Left Adnexa: appears wnl 6. Posterior cul-de-sac: wnl IMPRESSION: 1. Complex fluid collection within the endometrium is nonspecific. Consider hysteroscopy. 2. Nonspecific cystic area right adnexa. Follow-up in 6 weeks is advised.
== END | disposition home or self-care (01) ==
LOC: RADUSWWP 09:33
PROVIDERS: ATTEND Psychiatry & Neurology Neurology
DX: N83.8 Other noninflammatory disorders of ovary, fallopian tube and broad ligament (principal)
CPT/HCPCS: 76830; 76856

== ENCOUNTER → 2018-12-21 | Outpatient (CLI) | payer OTHER ==
[2018-12-21 09:24] LABS: Basophils % (A) 1 %; Eosinophils # (A) 0.3 k/uL (0-0.7); Eosinophils % (A) 6 %; HCT 40.7 % (34.0-46.0); HGB 13.2 gm/dL (11.4-16.0); Lymphocytes # (A) 1.7 k/uL (1.0-4.8); Lymphocytes % (A) 39 %; MCH 29.5 pg (25.0-35.0); MCHC 32.5 g/dL (31.0-37.0); MCV 90.7 fL (80.0-100.0); Mean Platelet Volume 7.7; Monocytes # (A) 0.2 k/uL (0-1.0); Monocytes % (A) 5 %; Neutrophils % (A) 47 %; Platelet Count 285 k/uL (150-450); RBC 4.49 m/uL (3.80-5.40); RDW 13.3 % (11.5-15.5); WBC 4.3 k/uL (3.8-10.6)
[2018-12-21 16:18] LABS: Albumin 4.1 g/dL (3.80-4.90); Albumin/Globulin Ratio 2.16 (1.60-3.17); Anion Gap 8.4 mmol/L (4.00-12.00); Calcium 9.2 mg/dL (8.7-10.3); Carbon Dioxide 25.6 mmol/L (21.6-31.8); Globulin 1.9 g/dL (1.6-3.3); Iron Saturation 35.83 (12.00-45.00); LDL Cholesterol,Calculated 87.8 mg/dL (0.0-131.0); Potassium 4.3 mmol/L (3.5-5.5); Total Bilirubin 0.5 mg/dL (0.2-1.2); VLDL Calculation 36.2 mg/dL (5.00-40.00)
[2018-12-21 16:25] LABS: T4, Free (Free Thyroxine) 1.2 ng/dL (0.80-1.80)
[2018-12-21 16:28] LABS: Vitamin D 25 Hydroxy 35.3 ng/mL (30.0-100.0)
== END ==
LOC: LABWHC1 08:19
PROVIDERS: ATTEND Internal Medicine
DX: E78.5 Hyperlipidemia, unspecified (principal); E55.9 Vitamin D deficiency, unspecified; E66.01 Morbid (severe) obesity due to excess calories; R53.83 Other fatigue
CPT/HCPCS: 36415; 80053; 80061; 82306; 82607; 83540; 83550; 84439; 84443; 85025

== ENCOUNTER → 2019-02-28 | Outpatient (CLI) | payer OTHER ==
[2019-02-28 20:35] LABS: Hepatitis B Surface AB- Quant 3.5 mIU/mL
== END | disposition home or self-care (01) ==
LOC: LABWHC1 12:25
PROVIDERS: ATTEND Internal Medicine
DX: Z01.84 Encounter for antibody response examination (principal)
CPT/HCPCS: 36415; 86706; 86735; 86762; 86765; 86787

== ENCOUNTER 2019-05-29 15:33 | Emergency (ER) | payer OTHER ==
[2019-05-29 15:44] VITALS: RESP 18; TEMP 98
[2019-05-29] MEDS ORDERED: PANTOPRAZOLE 40 MG/10 ML VIAL IVP STA (16:35)
[2019-05-29] MEDS ORDERED: SODIUM CHLORIDE 0.9% 1,000 ML IV STA (16:35)
[2019-05-29] MEDS ORDERED: MORPHINE SULFATE 4 MG/ML SYRINGE IVP STA (16:57)
[2019-05-29] MEDS ORDERED: ONDANSETRON 4 MG/2 ML VIAL IVP STA (16:57)
[2019-05-29 17:01] LABS: ALT 11 U/L (9-52); AST 20 U/L (14-36); African American GFR (CKD) >90 (>60 ml/min/1.73 sqM); Albumin 3.8 g/dL (3.5-5.0); Alkaline Phosphatase 75 U/L (38-126); Anion Gap 7 mmol/L; Blood Urea Nitrogen 21 mg/dL (7-17); Calcium 9.4 mg/dL (8.4-10.2); Carbon Dioxide 25 mmol/L (22-30); Chloride 106 mmol/L (98-107); Glucose 89 mg/dL (74-99); Magnesium 2.2 mg/dL (1.6-2.3); Potassium 4.1 mmol/L (3.5-5.1); Sodium 138 mmol/L (137-145); Total Bilirubin 0.5 mg/dL (0.2-1.3); Total Protein 6.5 g/dL (6.3-8.2)
[2019-05-29 17:07] LABS: Basophils % (A) 0 %; Eosinophils # (A) 0.2 k/uL (0-0.7); Eosinophils % (A) 3 %; HCT 38.3 % (34.0-46.0); HGB 12.9 gm/dL (11.4-16.0); Lymphocytes # (A) 1.3 k/uL (1.0-4.8); Lymphocytes % (A) 17 %; MCH 30.1 pg (25.0-35.0); MCHC 33.8 g/dL (31.0-37.0); Mean Platelet Volume 7.8; Monocytes # (A) 0.4 k/uL (0-1.0); Monocytes % (A) 6 %; Neutrophils # (A) 5.4 k/uL (1.3-7.7); Neutrophils % (A) 73 %; Platelet Count 239 k/uL (150-450); RDW 13.5 % (11.5-15.5); WBC 7.4 k/uL (3.8-10.6)
[2019-05-29 17:13] LABS: INR 0.9 (<1.2); Partial Thromboplastin Time 22.7 sec (22.0-30.0); Prothrombin Time 9.4 sec (9.0-12.0)
--- NOTE | 2019-05-29 17:39 | CT ---
EXAMINATION TYPE: CT abdomen pelvis w con DATE OF EXAM: 05/29/2019 COMPARISON: NONE HISTORY: 48-year-old female Generalized abdominal pain with blood in stool. TECHNIQUE: Contiguous axial scanning of the abdomen and pelvis following administration of 100 ml Iso kath 300 IV contrast. Delayed images through the kidneys and coronal/sagittal reconstructions perform ed. CT DLP: 1535.2 mGycm Automated exposure control for dose reduction was used. FINDINGS: Heart normal size without pericardial effusion. Lung bases clear without pleural effusion. Liver enlarged measuring 20.4 cm. No focal lesion or biliary ductal dilatation. Portal venous system is patent. Gallbladder, adrenal glands, kidneys, spleen, and pancreas appear within normal limits. No dilated small bowel, free fluid, or free air. However, some prominent fluid filled small bowel loo ps are present in the mid and lower abdomen. Mildly thickened appendiceal base at 1.1 cm, refer to coronal image 55 and axial image 4. The mid and distal aspect of the appendix appear normal. Moderate circumferential wall thickening of the descending colon. No mesenteric or retroperitoneal lymphadenopathy. Bladder is urine distended. Uterus anteverted. 1.9 cm dominant follicle or functional cyst within the right ovary. Left ovary visualized. No abnormal fluid collection in the pelvis or pelvic lymphadenop athy. Bones: Mild degenerative changes at the hips. Facet arthropathy lower lumbar spine. IMPRESSION: 1. MILDLY THICKENED APPENDICEAL BASE AT 1.1 CM. NO SURROUNDING INFLAMMATORY CHANGES. FINDINGS MAY BE NORMAL VARIATION IN THIS PATIENT. SHORT INTERVAL FOLLOW-UP INDICATED. 2. PROMINENT FLUID-FILLED SMALL BOWEL LOOPS IN THE MID AND LOWER ABDOMEN AND LONG SEGMENT CIRCUMFEREN TIAL WALL THICKENING OF THE DESCENDING COLON. CORRELATE FOR NONSPECIFIC INFECTIOUS OR INFLAMMATORY EN TEROCOLITIS.
[2019-05-29 17:57] VITALS: BP 137/72; PULSE 71
[2019-05-29] MEDS ORDERED: AMOXIC-POT CLAV 875-125MG 1 EACH TAB PO STA (19:02)
--- NOTE | 2019-05-29 19:05 | ED ---
General Adult HPI - General Chief complaint: GI Bleed Stated complaint: Abd pain Source: patient Mode of arrival: ambulatory Limitations: no limitations - History of Present Illness Initial comments: The patient is a 48-year-old female who presents to the emergency department wit h reported abdominal pain that has been present for the past year. She describes it as a cramping sensation in her bilateral lower quadrants. She states that she will occasionally have exacerbation of the pain which then will improve on its own. She has been taking Motrin at home for her pain. Yesterday she began having right red blood per rectum. States that the blood was present when she wiped and was in the toilet bowl. She denies any rectal pain. No history of similar in the past. Denies alcohol use her daily use of NSAIDs. She denies any melanotic stools. Admits to a few episodes of vomiting however denies hemoptysis. No reported fevers or chills. No history of inflammatory bowel disease. She denies any changes in her urination to include dysuria, hematuria or difficulty voiding. Denies diarrhea or constipation. Denies any abnormal vaginal bleeding or discharge. She does not follow with a physician closely. States she's never had a colonoscopy. There are no other alleviating, precipitating or modifying factors - Related Data Home Medications Medication Instructions Recorded Confirmed Loratadine [Claritin] 10 mg PO DAILY 11/05/17 05/29/19 Sertraline [Zoloft] 100 mg PO BID 11/05/17 05/29/19 ALPRAZolam [Xanax] 0.25 mg PO TID 05/29/19 05/29/19 Ergocalciferol (Vitamin D2) 50,000 unit PO MO 05/29/19 05/29/19 [Vitamin D2] Estrogen,Con/M-Progest Acet 1 tab PO DAILY 05/29/19 05/29/19 [Prempro 0.625-2.5 mg Tablet] Gabapentin [Neurontin] 100 mg PO BID 05/29/19 05/29/19 L.acidoph,Paracasei, B.lactis 1 cap PO DAILY 05/29/19 05/29/19 [Probiotic] Naproxen [Naprosyn] 250 mg PO DAILY PRN 05/29/19 05/29/19 lamoTRIgine [LaMICtal] 50 mg PO BID 05/29/19 05/29/19 rOPINIRole HCL [Requip] 2 mg PO HS 05/29/19 05/29/19 Previous Rx's Medication Instructions Recorded Amoxicillin/Potassium Clav 1 tab PO Q12HR #20 tab 05/29/19 [Augmentin 875-125 Tablet] Allergies Allergy/AdvReac Type Severity Reaction Status Date / Time No Known Allergies Allergy Verified 05/29/19 16:06 Review of Systems ROS Statement: Those systems with pertinent positive or pertinent negative responses have been documented in the HPI. ROS Other: All systems not noted in ROS Statement are negative. Past Medical History Past Medical History: GERD/Reflux, Hyperlipidemia, Osteoarthritis (OA) Additional Past Medical History / Comment(s): hiatal hernia, abdominla pain with eatting, anemia, History of Any Multi-Drug Resistant Organisms: None Reported Past Surgical History: Orthopedic Surgery, Tubal Ligation, Uterine Ablation Additional Past Surgical History / Comment(s): HANS KNEE arthroscopy, Past Anesthesia/Blood Transfusion Reactions: No Reported Reaction Past Psychological History: Anxiety, Depression Smoking Status: Never smoker Past Alcohol Use History: None Reported Past Drug Use History: None Reported - Past Family History Mother Family Medical History: Cancer Father Family Medical History: Cancer Brother(s) Family Medical History: Cancer General Exam Limitations: no limitations Course Vital Signs 05/29/19 05/29/19 05/29/19 15:42 16:43 17:55 Temperature 98 F Pulse Rate 75 65 71 Respiratory 18 18 18 Rate Blood Pressure 148/92 145/87 137/72 O2 Sat by Pulse 97 95 98 Oximetry 05/29/19 19:22 Temperature 98 F Pulse Rate 71 Respiratory 18 Rate Blood Pressure 137/72 O2 Sat by Pulse 98 Oximetry Medical Decision Making - Medical Decision Making Upon arrival the patient is placed into room 27. She is hooked up to continuous pulse ox and cardiac monitoring. Peripheral IV is established. Laboratory s tudies were conducted and the patient was sent for a CT of her abdomen and pelvis. I did perform a rectal exam which demonstrated no gross blood. The patient is fecal occult blood positive. Upon return of her laboratory studies I did discuss with the patient. Her hemoglobin is 12.9 at this time. She does report that she has had one further episode of bleeding which consisted of a small amount of bright red blood. Patient's abdomen remains non-peritoneal. I did discuss the CT results with the patient. CT demonstrates mildly thickened appendiceal PEs at 1.1 cm. No surrounding infiltrate changes. Prominent fluid- filled small bowel loops in the mid and lower abdomen and long segment ci rcumferential wall thickening of the descending colon. Because of the CT read I did recommend treatment for colitis. I did provide the patient with a dose of Augmentin. I did reevaluate the patient she reports that she still continues to have 8 out of 10 pain after she was given a dose of 4 mg of morphine. Because the patient's persistent pain I did recommend hospital admission. The patient r efused. She is of sound mind and capable of making her own decisions. I informed her that she will be discharged home for prescription of Augmentin and needs to follow-up with her primary care physician within 2-4 days without fail. I also provided her with information for Dr. Slater's office. I informed her that she will need a colonoscopy. Family is at bedside and does agree with the patient's decision. The patient has any new or worsening symptoms she should return to the emergency department. The patient is requesting something for pain control at home. I did provide her with 12 tablets of [place]. She does sign and opioids start talking form. Side effect profiles discussed. I also discussed in depth the return parameters. The patient understood. She was discharged home in stable condition - Lab Data Result diagrams: 05/29/19 16:25 05/29/19 16:25 Lab Results 05/29/19 05/29/19 05/29/19 Range/Units 16:00 16:25 16:25 WBC 7.4 (3.8-10.6) k/uL RBC 4.30 (3.80-5.40) m/uL Hgb 12.9 (11.4-16.0) gm/dL Hct 38.3 (34.0-46.0) % MCV 89.0 (80.0-100.0) fL MCH 30.1 (25.0-35.0) pg MCHC 33.8 (31.0-37.0) g/dL RDW 13.5 (11.5-15.5) % Plt Count 239 (150-450) k/uL Neutrophils % 73 % Lymphocytes % 17 % Monocytes % 6 % Eosinophils % 3 % Basophils % 0 % Neutrophils # 5.4 (1.3-7.7) k/uL Lymphocytes # 1.3 (1.0-4.8) k/uL Monocytes # 0.4 (0-1.0) k/uL Eosinophils # 0.2 (0-0.7) k/uL Basophils # 0.0 (0-0.2) k/uL PT (9.0-12.0) sec INR (<1.2) APTT (22.0-30.0) sec Sodium 138 (137-145) mmol/L Potassium 4.1 (3.5-5.1) mmol/L Chloride 106 (98-107) mmol/L Carbon Dioxide 25 (22-30) mmol/L Anion Gap 7 mmol/L BUN 21 H (7-17) mg/dL Creatinine 0.77 (0.52-1.04) mg/dL Est GFR (CKD-EPI)AfAm >90 (>60 ml/min/1.73 sqM) Est GFR (CKD-EPI)NonAf >90 (>60 ml/min/1.73 sqM) Glucose 89 (74-99) mg/dL Plasma Lactic Acid [place] (0.7-2.0) mmol/L Calcium 9.4 (8.4-10.2) mg/dL Magnesium 2.2 (1.6-2.3) mg/dL Total Bilirubin 0.5 (0.2-1.3) mg/dL AST 20 (14-36) U/L ALT 11 (9-52) U/L Alkaline Phosphatase 75 (38-126) U/L Total Protein 6.5 (6.3-8.2) g/dL Albumin 3.8 (3.5-5.0) g/dL Lipase 96 (23-300) U/L Stool Occult Blood Positive H (Negative) 05/29/19 05/29/19 Range/Units 16:25 16:25 WBC (3.8-10.6) k/uL RBC (3.80-5.40) m/uL Hgb (11.4-16.0) gm/dL Hct (34.0-46.0) % MCV (80.0-100.0) fL MCH (25.0-35.0) pg MCHC (31.0-37.0) g/dL RDW (11.5-15.5) % Plt Count (150-450) k/uL Neutrophils % % Lymphocytes % % Monocytes % % Eosinophils % % Basophils % % Neutrophils # (1.3-7.7) k/uL Lymphocytes # (1.0-4.8) k/uL Monocytes # (0-1.0) k/uL Eosinophils # (0-0.7) k/uL Basophils # (0-0.2) k/uL PT 9.4 (9.0-12.0) sec INR 0.9 (<1.2) APTT 22.7 (22.0-30.0) sec Sodium (137-145) mmol/L Potassium (3.5-5.1) mmol/L Chloride (98-107) mmol/L Carbon Dioxide (22-30) mmol/L Anion Gap mmol/L BUN (7-17) mg/dL Creatinine (0.52-1.04) mg/dL Est GFR (CKD-EPI)AfAm (>60 ml/min/1.73 sqM) Est GFR (CKD-EPI)NonAf (>60 ml/min/1.73 sqM) Glucose (74-99) mg/dL Plasma Lactic Acid [place] 0.7 (0.7-2.0) mmol/L Calcium (8.4-10.2) mg/dL Magnesium (1.6-2.3) mg/dL Total Bilirubin (0.2-1.3) mg/dL AST (14-36) U/L ALT (9-52) U/L Alkaline Phosphatase (38-126) U/L Total Protein (6.3-8.2) g/dL Albumin (3.5-5.0) g/dL Lipase (23-300) U/L Stool Occult Blood (Negative) Disposition Clinical Impression: Hematochezia, Colitis Disposition: HOME SELF-CARE Condition: Stable Instructions (If sedation given, give patient instructions): Colitis (ED) Additional Instructions: Please follow-up with your primary care doctor in 2-4 days. Return to the emergency room for any new or worsening symptoms. He need to follow-up with Dr. Fish for a colonoscopy. Prescriptions: Amoxicillin/Potassium Clav [Augmentin 875-125 Tablet] 1 tab PO Q12HR #20 tab Is patient prescribed a controlled substance at d/c from ED?: No Referrals: Baltazar Ramos MD [Primary Care Provider] - 1-2 days Adeline Fish MD [STAFF PHYSICIAN] - 1-2 days Time of Disposition: 19:05
== END 2019-05-29 20:41 | disposition home or self-care (01) ==
LOC: EC 15:33
DX: K52.9 Noninfective gastroenteritis and colitis, unspecified (principal); K21.9 Gastro-esophageal reflux disease without esophagitis; F32.9 Major depressive disorder, single episode, unspecified; F41.9 Anxiety disorder, unspecified; Z79.899 Other long term (current) drug therapy; Z98.51 Tubal ligation status
CPT/HCPCS: 36415; 80053; 83605; 83690; 83735; 85025; 85610; 85730; 82272; 74177; 99284; 96374; 96375 ×2; 96361; J2270; J2405; C9113; Q9967

== ENCOUNTER 2019-06-01 21:06 | Inpatient (IN) | payer OTHER ==
[2019-06-01] MEDS ORDERED: SODIUM CHLORIDE 0.9% 500 ML 500 ML IV STA (21:35)
--- NOTE | 2019-06-01 21:35 | ED ---
Abdominal Pain HPI - General Chief Complaint: Abdominal Pain Stated Complaint: Abd Pain Time Seen by Provider: 06/01/19 21:13 Source: patient Mode of arrival: ambulatory Limitations: no limitations - History of Present Illness Initial Comments: This patient is a 48-year-old woman who presents to be evaluated for abdominal pain. She states that her symptoms had started probably a couple of weeks ago though they were minor at the onset. She states that the symptoms had become more noticeable and she was seen here 3 days ago, and given follow-up with the bow maker, but she states that the pain has worsened somewhat so she is here for reevaluation. She states that the symptoms had been bilateral lower quadrant and crampy. She also is experiencing some bloating. She states the symptoms were there more or less all the time but were mild. She also had noticed occasional traces of which she felt were blood in her stool. She states that over the past few days she has also been having some upper abdominal pains that are sharp and more severe. She has not noticed anything that relieves or that helps the pain. When she was seen here she was given amoxicillin to take twice a day but she states this does not seem to alter the symptoms. She has not had vomiting. No other changes in her stool. No change in urination. MD Complaint: abdominal pain -: week(s) Location: diffuse Radiation: none Severity: moderate Quality: cramping, sharp Consistency: constant Improves With: nothing Worsens With: nothing Context: recent antibiotic use Associated Symptoms: diarrhea - Related Data Home Medications Medication Instructions Recorded Confirmed Loratadine [Claritin] 10 mg PO DAILY 11/05/17 06/01/19 Sertraline [Zoloft] 100 mg PO BID 11/05/17 06/01/19 ALPRAZolam [Xanax] 0.25 mg PO TID PRN 05/29/19 06/01/19 Ergocalciferol (Vitamin D2) 50,000 unit PO MO 05/29/19 06/01/19 [Vitamin D2] Estrogen,Con/M-Progest Acet 1 tab PO DAILY 05/29/19 06/01/19 [Prempro 0.625-2.5 mg Tablet] Gabapentin [Neurontin] 100 mg PO BID 05/29/19 06/01/19 L.acidoph,Paracasei, B.lactis 1 cap PO DAILY 05/29/19 06/01/19 [Probiotic] Naproxen [Naprosyn] 250 mg PO DAILY PRN 05/29/19 06/01/19 lamoTRIgine [LaMICtal] 50 mg PO BID 05/29/19 06/01/19 rOPINIRole HCL [Requip] 2 mg PO HS 05/29/19 06/01/19 Previous Rx's Medication Instructions Recorded Amoxicillin/Potassium Clav 1 tab PO Q12HR #20 tab 05/29/19 [Augmentin 875-125 Tablet] Allergies Allergy/AdvReac Type Severity Reaction Status Date / Time No Known Allergies Allergy Verified 06/02/19 00:43 Review of Systems ROS Statement: Those systems with pertinent positive or pertinent negative responses have been documented in the HPI. ROS Other: All systems not noted in ROS Statement are negative. Constitutional: Denies: fever, chills Respiratory: Denies: cough, dyspnea Cardiovascular: Denies: chest pain, palpitations, edema Gastrointestinal: Reports: as per HPI, abdominal pain, hematochezia. Denies: nausea, vomiting, diarrhea, constipation, hematemesis, melena Genitourinary: Denies: dysuria, frequency, hematuria Musculoskeletal: Denies: back pain Skin: Denies: rash Neurological: Denies: headache, weakness, numbness Past Medical History Past Medical History: GERD/Reflux, Hyperlipidemia, Osteoarthritis (OA) Additional Past Medical History / Comment(s): hiatal hernia, abdominla pain with eatting, anemia, History of Any Multi-Drug Resistant Organisms: None Reported Past Surgical History: Orthopedic Surgery, Tubal Ligation, Uterine Ablation Additional Past Surgical History / Comment(s): HANS KNEE arthroscopy, Past Anesthesia/Blood Transfusion Reactions: No Reported Reaction Past Psychological History: Anxiety, Depression Smoking Status: Never smoker Past Alcohol Use History: None Reported Past Drug Use History: None Reported - Past Family History Mother Family Medical History: Cancer Father Family Medical History: Cancer Brother(s) Family Medical History: Cancer General Exam Limitations: no limitations General appearance: alert, in no apparent distress Head exam: Present: atraumatic, normocephalic Eye exam: Present: normal appearance. Absent: scleral icterus, conjunctival injection ENT exam: Present: normal oropharynx Neck exam: Present: normal inspection Respiratory exam: Present: normal lung sounds bilaterally. Absent: respiratory distress, wheezes, rales, rhonchi, stridor Cardiovascular Exam: Present: regular rate, normal rhythm, normal heart sounds. Absent: systolic murmur, diastolic murmur, rubs, gallop GI/Abdominal exam: Present: soft, normal bowel sounds. Absent: distended, tenderness, guarding, rebound, rigid, mass, pulsatile mass, hernia Extremities exam: Present: normal inspection, normal capillary refill. Absent: pedal edema, calf tenderness Back exam: Present: normal inspection. Absent: CVA tenderness (R), CVA tenderness (L) Neurological exam: Present: alert Skin exam: Present: warm, dry, intact, normal color. Absent: rash Course Vital Signs 06/01/19 06/01/19 06/01/19 21:10 23:02 23:59 Temperature 98.6 F 98.3 F Pulse Rate 77 74 73 Respiratory 20 18 18 Rate Blood Pressure 156/87 141/87 157/96 O2 Sat by Pulse 97 98 98 Oximetry Medical Decision Making - Lab Data Result diagrams: 06/01/19 21:31 06/01/19 21:31 Lab Results 06/01/19 06/01/19 06/01/19 Range/Units 21:31 21:31 21:31 WBC 5.0 (3.8-10.6) k/uL RBC 4.36 (3.80-5.40) m/uL Hgb 12.9 (11.4-16.0) gm/dL Hct 38.8 (34.0-46.0) % MCV 88.9 (80.0-100.0) fL MCH 29.6 (25.0-35.0) pg MCHC 33.3 (31.0-37.0) g/dL RDW 12.3 (11.5-15.5) % Plt Count 246 (150-450) k/uL Neutrophils % 51 % Lymphocytes % 35 % Monocytes % 6 % Eosinophils % 6 % Basophils % 1 % Neutrophils # 2.6 (1.3-7.7) k/uL Lymphocytes # 1.8 (1.0-4.8) k/uL Monocytes # 0.3 (0-1.0) k/uL Eosinophils # 0.3 (0-0.7) k/uL Basophils # 0.0 (0-0.2) k/uL Sodium 139 (137-145) mmol/L Potassium 4.4 (3.5-5.1) mmol/L Chloride 106 (98-107) mmol/L Carbon Dioxide 24 (22-30) mmol/L Anion Gap 9 mmol/L BUN 19 H (7-17) mg/dL Creatinine 0.74 (0.52-1.04) mg/dL Est GFR (CKD-EPI)AfAm >90 (>60 ml/min/1.73 sqM) Est GFR (CKD-EPI)NonAf >90 (>60 ml/min/1.73 sqM) Glucose 101 H (74-99) mg/dL Calcium 9.5 (8.4-10.2) mg/dL Total Bilirubin 0.4 (0.2-1.3) mg/dL AST 24 (14-36) U/L ALT 10 (9-52) U/L Alkaline Phosphatase 66 (38-126) U/L C-Reactive Protein 14.8 H (<10.0) mg/L Total Protein 7.2 (6.3-8.2) g/dL Albumin 4.2 (3.5-5.0) g/dL Amylase 54 (30-110) U/L Lipase 120 (23-300) U/L Urine Color Light Yellow Urine Appearance Clear (Clear) Urine pH 5.5 (5.0-8.0) Ur Specific [place] 1.010 (1.001-1.035) Urine Protein Negative (Negative) Urine Glucose (UA) Negative (Negative) Urine Ketones Negative (Negative) Urine Blood Negative (Negative) Urine Nitrite Negative (Negative) Urine Bilirubin Negative (Negative) Urine Urobilinogen <2.0 (<2.0) mg/dL Ur Leukocyte Esterase Negative (Negative) Urine HCG, Qual (Not Detectd) 06/01/19 Range/Units 21:50 WBC (3.8-10.6) k/uL RBC (3.80-5.40) m/uL Hgb (11.4-16.0) gm/dL Hct (34.0-46.0) % MCV (80.0-100.0) fL MCH (25.0-35.0) pg MCHC (31.0-37.0) g/dL RDW (11.5-15.5) % Plt Count (150-450) k/uL Neutrophils % % Lymphocytes % % Monocytes % % Eosinophils % % Basophils % % Neutrophils # (1.3-7.7) k/uL Lymphocytes # (1.0-4.8) k/uL Monocytes # (0-1.0) k/uL Eosinophils # (0-0.7) k/uL Basophils # (0-0.2) k/uL Sodium (137-145) mmol/L Potassium (3.5-5.1) mmol/L Chloride (98-107) mmol/L Carbon Dioxide (22-30) mmol/L Anion Gap mmol/L BUN (7-17) mg/dL Creatinine (0.52-1.04) mg/dL Est GFR (CKD-EPI)AfAm (>60 ml/min/1.73 sqM) Est GFR (CKD-EPI)NonAf (>60 ml/min/1.73 sqM) Glucose (74-99) mg/dL Calcium (8.4-10.2) mg/dL Total Bilirubin (0.2-1.3) mg/dL AST (14-36) U/L ALT (9-52) U/L Alkaline Phosphatase (38-126) U/L C-Reactive Protein (<10.0) mg/L Total Protein (6.3-8.2) g/dL Albumin (3.5-5.0) g/dL Amylase (30-110) U/L Lipase (23-300) U/L Urine Color Urine Appearance (Clear) Urine pH (5.0-8.0) Ur Specific [place] (1.001-1.035) Urine Protein (Negative) Urine Glucose (UA) (Negative) Urine Ketones (Negative) Urine Blood (Negative) Urine Nitrite (Negative) Urine Bilirubin (Negative) Urine Urobilinogen (<2.0) mg/dL Ur Leukocyte Esterase (Negative) Urine HCG, Qual Not Detected (Not Detectd) Disposition Clinical Impression: Abdominal pain Disposition: ADMITTED IP TO THIS HOSP Condition: Good Is patient prescribed a controlled substance at d/c from ED?: No
[2019-06-01] MEDS ORDERED: DICYCLOMINE 20 MG TAB PO STA (21:36)
[2019-06-01] MEDS ORDERED: ONDANSETRON 4 MG/2 ML VIAL IVP STA (21:53)
[2019-06-01 22:04] LABS: Basophils % (A) 1 %; Eosinophils # (A) 0.3 k/uL (0-0.7); Eosinophils % (A) 6 %; HCT 38.8 % (34.0-46.0); HGB 12.9 gm/dL (11.4-16.0); Lymphocytes # (A) 1.8 k/uL (1.0-4.8); Lymphocytes % (A) 35 %; MCH 29.6 pg (25.0-35.0); MCHC 33.3 g/dL (31.0-37.0); MCV 88.9 fL (80.0-100.0); Mean Platelet Volume 7.2; Monocytes # (A) 0.3 k/uL (0-1.0); Monocytes % (A) 6 %; Neutrophils # (A) 2.6 k/uL (1.3-7.7); Neutrophils % (A) 51 %; Platelet Count 246 k/uL (150-450); RBC 4.36 m/uL (3.80-5.40); RDW 12.3 % (11.5-15.5)
[2019-06-01 22:09] LABS: Appearance,Urine Clear (Clear); Bilirubin,Urine Negative (Negative); Blood,Urine Negative (Negative); Color,Urine Light Yellow; Glucose,Urine (UA) Negative (Negative); Ketones,Urine Negative (Negative); Leukocyte Esterase,Urine Negative (Negative); Nitrite,Urine Negative (Negative); PH, Urine 5.5 (5.0-8.0); Protein,Urine Negative (Negative); Urobilinogen,Urine <2.0 mg/dL (<2.0)
[2019-06-01 22:27] LABS: ALT 10 U/L (9-52); AST 24 U/L (14-36); African American GFR (CKD) >90 (>60 ml/min/1.73 sqM); Albumin 4.2 g/dL (3.5-5.0); Alkaline Phosphatase 66 U/L (38-126); Amylase 54 U/L (30-110); Anion Gap 9 mmol/L; Blood Urea Nitrogen 19 mg/dL (7-17); C Reactive Protein 14.8 mg/L (<10.0); Calcium 9.5 mg/dL (8.4-10.2); Carbon Dioxide 24 mmol/L (22-30); Chloride 106 mmol/L (98-107); Glucose 101 mg/dL (74-99); Potassium 4.4 mmol/L (3.5-5.1); Sodium 139 mmol/L (137-145); Total Bilirubin 0.4 mg/dL (0.2-1.3); Total Protein 7.2 g/dL (6.3-8.2)
[2019-06-01] MEDS ORDERED: predniSONE 20 MG TAB PO STA (23:11)
[2019-06-01] MEDS ORDERED: MORPHINE SULFATE 4 MG/ML SYRINGE IV STA (23:11)
[2019-06-01] MEDS ORDERED: NALOXONE 0.4 MG/ML 1 ML VIAL IV PRN (23:12)
[2019-06-01] MEDS: SODIUM CHLORIDE 0.9% 1,000 ML IV SCH (23:58)
[2019-06-02] MEDS: ACETAMINOPHEN TAB 325 MG TAB PO PRN ×4 (00:53→20:08)
[2019-06-02] MEDS: MORPHINE SULFATE 4 MG/ML SYRINGE IV PRN ×5 (04:39→22:57)
[2019-06-02] MEDS: SODIUM CHLORIDE 0.9% 1,000 ML IV SCH ×3 (07:36→22:56)
[2019-06-02] MEDS: GABAPENTIN 100 MG CAP PO SCH ×2 (08:34→21:13)
[2019-06-02] MEDS: AMOXIC-POT CLAV 875-125MG 1 EACH TAB PO SCH ×2 (08:34→21:07)
[2019-06-02] MEDS: lamoTRIgine 25 MG TAB PO SCH ×2 (08:34→21:07)
[2019-06-02] MEDS: SERTRALINE 100 MG TAB PO SCH ×2 (08:34→21:07)
[2019-06-02] MEDS: NON-FORMULARY DRUG (Estrogen,Con/M-Progest Acet [Prempro 0.625-2.5 Mg Tablet] 1 TAB) PO SCH (10:18)
[2019-06-02] MEDS ORDERED: PEG 3350-NA SULF,BICARB,CL/KCL 4,000 ML BOTTLE PO ONE ×2 (12:00→12:03)
[2019-06-02] MEDS: ALPRAZolam 0.25 MG TAB PO PRN ×2 (12:47→21:13)
--- NOTE | 2019-06-02 14:13 | P.HPIM ---
History of Present Illness This is a pleasant 48 years old female with past medical history of GERD, hyperlipidemia, osteoarthritis. She presents because of abdominal pain. Patient states she has abdominal pain on and off for one year, lately is becoming more frequent, however she has been followed with a GI/surgery physician before for this reason, however yesterday patient noticed fresh blood per rectum so she decided to come to emergency room. patient states that the pain is generalized was severe yesterday, however is much less today after getting pain medication. She has loose bowel movements 2-3 days ago, no more bowel movements since then. Patient denies vomiting, however she has some nausea. No chest pain or dyspnea. No fever or sweating. No urinary complaints. She has history of ovarian cyst and she underwent DIC by her belt weaver on November 2018, her belt weaver is aware of her abdominal pain and she does not think it is related to her genital organs. Patient has already been evaluated by Dr. Garcia coated he had hernia surgery for her last year, Dr. Garcia is planning to do EGD/colonoscopy for her tomorrow Vitals looks stable and patient is afebrile. Labs are reviewed and showing unremarkable CBC, BMP and liver enzymes, urinalysis is negative, test is not detected in the urine. Review of Systems CONSTITUTIONAL: No fever, no malaise, no fatigue. HEENT: No recent visual problems or hearing problems. Denied any sore throat. CARDIOVASCULAR: No orthopnea, PND, no palpitations, no syncope. PULMONARY: No shortness of breath, no cough, no hemoptysis. GASTROINTESTINAL: No diarrhea, no nausea, no vomiting, no abdominal pain. Normoactive bowel sounds. NEUROLOGICAL: No headaches, no weakness, no numbness. HEMATOLOGICAL: Denies any bleeding or petechiae. GENITOURINARY: Denies any burning micturition, frequency, or urgency. MUSCULOSKELETAL/RHEUMATOLOGICAL: Denies any joint pain, swelling, or any muscle pain. ENDOCRINE: Denies any polyuria or polydipsia. Past Medical History Past Medical History: GERD/Reflux, Hyperlipidemia, Osteoarthritis (OA) Additional Past Medical History / Comment(s): hiatal hernia, abdominla pain with eating. History of Any Multi-Drug Resistant Organisms: None Reported Past Surgical History: Hernia Repair, Orthopedic Surgery, Tubal Ligation, Uterine Ablation Additional Past Surgical History / Comment(s): HANS KNEE arthroscopy, Past Anesthesia/Blood Transfusion Reactions: No Reported Reaction Additional Past Anesthesia/Blood Transfusion Reaction / Comment(s): Anesthesia for lesion on cyst in groin area. feet curled lateral, high bp and shaking. Pt will find out name of med that did this to her. Never had a problem with anesthesia from [facility]. Past Psychological History: Anxiety, Depression Smoking Status: Never smoker Past Alcohol Use History: None Reported Past Drug Use History: None Reported - Past Family History Mother Family Medical History: Cancer Father Family Medical History: Cancer Brother(s) Family Medical History: Cancer Medications and Allergies Home Medications Medication Instructions Recorded Confirmed Type Loratadine [Claritin] 10 mg PO DAILY 11/05/17 06/01/19 History Sertraline [Zoloft] 100 mg PO BID 11/05/17 06/01/19 History ALPRAZolam [Xanax] 0.25 mg PO TID PRN 05/29/19 06/01/19 History Amoxicillin/Potassium Clav 1 tab PO Q12HR #20 tab 05/29/19 06/01/19 Rx [Augmentin 875-125 Tablet] Ergocalciferol (Vitamin D2) 50,000 unit PO MO 05/29/19 06/01/19 History [Vitamin D2] Estrogen,Con/M-Progest Acet 1 tab PO DAILY 05/29/19 06/01/19 History [Prempro 0.625-2.5 mg Tablet] Gabapentin [Neurontin] 100 mg PO BID 05/29/19 06/01/19 History L.acidoph,Paracasei, B.lactis 1 cap PO DAILY 05/29/19 06/01/19 History [Probiotic] Naproxen [Naprosyn] 250 mg PO DAILY PRN 05/29/19 06/01/19 History lamoTRIgine [LaMICtal] 50 mg PO BID 05/29/19 06/01/19 History rOPINIRole HCL [Requip] 2 mg PO HS 05/29/19 06/01/19 History Allergies Allergy/AdvReac Type Severity Reaction Status Date / Time No Known Allergies Allergy Verified 06/02/19 00:43 Physical Exam Vitals: Vital Signs Temp Pulse Pulse Resp BP BP Pulse Ox 06/02/19 11:58 98.5 F 71 16 163/90 95 06/02/19 08:19 97.8 F 71 16 123/72 93 L 06/02/19 08:00 71 16 06/02/19 06:57 98.2 F 83 18 146/81 93 L 06/02/19 00:43 98.1 F 69 18 148/85 96 06/02/19 00:40 69 18 06/01/19 23:59 98.3 F 73 18 157/96 98 06/01/19 23:02 74 18 141/87 98 06/01/19 21:10 98.6 F 77 20 156/87 97 Intake and Output 06/01/19 06/02/19 06/02/19 22:59 06:59 14:59 Other: Voiding Method Toilet Toilet # Voids 3 1 Weight 99.79 kg GENERAL: The patient is alert and oriented x3, not in any acute distress. Well developed, well nourished. HEENT: Pupils are round and equally reacting to light. EOMI. No scleral icterus. No conjunctival pallor. Normocephalic, atraumatic. No pharyngeal erythema. No thyromegaly. CARDIOVASCULAR: S1 and S2 present. No murmurs, rubs, or gallops. PULMONARY: Chest is clear to auscultation, no wheezing or crackles. -ABDOMEN: Soft, no abdominal tenderness, more in the right side, no rebound tenderness, nondistended, normoactive bowel sounds. No palpable organomegaly. MUSCULOSKELETAL: No joint swelling or deformity. EXTREMITIES: No cyanosis, clubbing, or pedal edema. NEUROLOGICAL: Gross neurological examination did not reveal any focal deficits. SKIN: No rashes. Results CBC & Chem 7: 06/01/19 21:31 06/01/19 21:31 Labs: Abnormal Lab Results - Last 24 Hours (Table) 06/01/19 Range/Units 21:31 BUN 19 H (7-17) mg/dL Glucose 101 H (74-99) mg/dL C-Reactive Protein 14.8 H (<10.0) mg/L Thrombosis Risk Factor Assmnt - Choose All That Apply Each Factor Represents 1 point: Age 41-60 years, Obesity (BMI >25) Other Risk Factors: No Other congenital or acquired thrombophilia - If yes, enter type in comment: No Thrombosis Risk Factor Assessment Total Risk Factor Score: 2 Thrombosis Risk Factor Assessment Level: Low Risk Assessment and Plan Assessment: Acute abdominal pain Possible blood in the stool GERD Hyperlipidemia Osteoarthritis Plan: This is a pleasant 48 years old female who presents because of abdominal pain. Patient has been evaluated by Dr. Delvalle and the planned for her to go to EGD/colonoscopy tomorrow as the patient has been told Labs and medication were reviewed.. Continue same treatment. Continue with symptomatic treatment. Resume home medication. Monitor lytes and vitals. DVT and GI prophylaxis. Further recommendations of the clinical course of the patient DVT prophylaxis: No heparin in view of blood per stool. GI Prophylaxis: Pepcid PT/OT: Pending Prognosis is guarded
--- NOTE | 2019-06-02 14:29 | P.GSCN ---
<Yadira Hunt - Last Filed: 06/02/19 14:25> History of Present Illness Consult date: 06/02/19 Reason for Consult: abdominal pain Requesting physician: Orlin Partida History of present illness: CHIEF COMPLAINT: Abdominal pain HISTORY OF PRESENT ILLNESS: 48-year-old female who presented to the emergency room with a chief complaint of abdominal pain. Patient initially came to the emergency room on 05/29/2019 and diagnosed with colitis. She was discharged home on oral antibiotics. Patient reports she has been having abdominal pain for approximately one year intermittently. She states the last 3 weeks her pain has gotten worse. She reports the pain is "all over my belly. When I have the pain, its everywhere". She reports on Thursday she had a loose bowel movement with bright red blood and mucus. She also had another bowel movement on Thursday with mucus but no blood at that time. Patient states she has not had any previous workup for her abdominal pain. She is prescribed Bentyl which she had stopped taking until recently when she began taking it again. She denies nausea or vomiting. Denies fever or chills. She feels bloated and gassy. She reports there are no foods that worsen her abdominal pain. PAST MEDICAL HISTORY: See list. PAST SURGICAL HISTORY: See list. MEDICATIONS: See list. ALLERGIES: See list. SOCIAL HISTORY: No illicit drug use. REVIEW OF SYSTEMS: CONSTITUTIONAL: Denies fever or chills. HEENT: Denies blurred vision, vision changes, or eye pain. Denies hemoptysis ENDOCRINE: Denies heat or cold intolerance. CARDIOVASCULAR: Denies chest pain or pressure. RESPIRATORY: No shortness of breath. GASTROINTESTINAL: See HPI for pertinent information NEURO: Denies history of seizures. PSYCH: No depression or suicidal ideation HEMATOLOGIC: Denies bleeding disorders. LYMPHATIC: The patient denies any lumps and bumps around the neck. GENITOURINARY: Denies any blood in urine or increased urinary frequency. MUSCULOSKELETAL: Denies myalgias. Denies joint swelling. Denies decreased range of motion beyond patients baseline. SKIN: Denies pruitis. Denies rash. PHYSICAL EXAM: VITAL SIGNS: Reviewed GENERAL: Well-developed in no acute distress. HEENT: No sclera icterus. Extraocular movements grossly intact. Moist buccal mucosa. Head is atraumatic, normocephalic. Hears conversational speech. No nasal drainage. NECK: Supple without lymphadenopathy. CHEST: Non-labored respirations and equal bilateral excursions. CARDIOVASCULAR: Regular rate with regular rhythm. Palpable 2+ radial pulses. ABDOMEN: Soft. Nondistended. Nontender with palpation. Positive bowel sounds. No peritoneal signs. MUSCULOSKELETAL: No clubbing, cyanosis or edema. NEUROLOGIC: No focal or lateralizing signs. Cranial nerves II through XII grossly intact. PSYCH: Appropriate affect. Alert and oriented to person, place and time. SKIN: Well perfused. Good skin turgor. LABORATORY DATA: WBC on admission white count 5.0. Hemoglobin 12.9. Platelet count 246. Potassium 4.4. BUN 18. Creatinine 0.74. Glucose 101. Bilirubin 0.4. AST 24. ALT 10. C-reactive protein 14.8. IMAGING: CT abdomen and pelvis completed on 05/29/2019 reveals mildly thickened appendiceal base at 1.1cm. no surrounding inflammatory changes. This may be a normal variant in this patient. Prominent fluid-filled small bowel loops in the mid and lower abdomen and on segment circumferential wall thickening of the descending colon. Correlate for nonspecific infectious or inflammatory enterocolitis ASSESSMENT: 1. Acute on chronic abdominal pain x 1 year, worse over last 3 weeks with episode of bright red blood and mucus in her stool 2. Abnormal CT scan revealing circumferential wall thickening of the descending colon with prominent small bowel loops, possible enterocolitis 3. History of hiatal hernia repair, October 2017 PLAN: 1. Clear liquid diet. NPO at midnight 2. Continue IV fluids 3. 2 L GoLYTELY bowel prep today 4. Patient to undergo EGD and colonoscopy tomorrow with Dr. Bower. Nurse practitioner note has been reviewed by physician. Signing provider agrees with the documented findings, assessment, and plan of care. Past Medical History Past Medical History: GERD/Reflux, Hyperlipidemia, Osteoarthritis (OA) Additional Past Medical History / Comment(s): hiatal hernia, abdominla pain with eating. History of Any Multi-Drug Resistant Organisms: None Reported Past Surgical History: Hernia Repair, Orthopedic Surgery, Tubal Ligation, Uterine Ablation Additional Past Surgical History / Comment(s): HANS KNEE arthroscopy, Past Anesthesia/Blood Transfusion Reactions: No Reported Reaction Additional Past Anesthesia/Blood Transfusion Reaction / Comm: Anesthesia for lesion on cyst in groin area. feet curled lateral, high bp and shaking. Pt will find out name of med that did this to her. Never had a problem with anesthesia from [facility]. Past Psychological History: Anxiety, Depression Smoking Status: Never smoker Past Alcohol Use History: None Reported Past Drug Use History: None Reported - Past Family History Mother Family Medical History: Cancer Father Family Medical History: Cancer Brother(s) Family Medical History: Cancer Medications and Allergies Home Medications Medication Instructions Recorded Confirmed Type Loratadine [Claritin] 10 mg PO DAILY 11/05/17 06/01/19 History Sertraline [Zoloft] 100 mg PO BID 11/05/17 06/01/19 History ALPRAZolam [Xanax] 0.25 mg PO TID PRN 05/29/19 06/01/19 History Amoxicillin/Potassium Clav 1 tab PO Q12HR #20 tab 05/29/19 06/01/19 Rx [Augmentin 875-125 Tablet] Ergocalciferol (Vitamin D2) 50,000 unit PO MO 05/29/19 06/01/19 History [Vitamin D2] Estrogen,Con/M-Progest Acet 1 tab PO DAILY 05/29/19 06/01/19 History [Prempro 0.625-2.5 mg Tablet] Gabapentin [Neurontin] 100 mg PO BID 05/29/19 06/01/19 History L.acidoph,Paracasei, B.lactis 1 cap PO DAILY 05/29/19 06/01/19 History [Probiotic] Naproxen [Naprosyn] 250 mg PO DAILY PRN 05/29/19 06/01/19 History lamoTRIgine [LaMICtal] 50 mg PO BID 05/29/19 06/01/19 History rOPINIRole HCL [Requip] 2 mg PO HS 05/29/19 06/01/19 History Allergies Allergy/AdvReac Type Severity Reaction Status Date / Time No Known Allergies Allergy Verified 06/02/19 00:43 Surgical - Exam Vital Signs Temp Pulse Resp BP Pulse Ox 98.6 F 77 20 156/87 97 06/01/19 21:10 06/01/19 21:10 06/01/19 21:10 06/01/19 21:10 06/01/19 21:10 Results - Labs 06/01/19 21:31 06/01/19 21:31 Abnormal Lab Results - Last 24 Hours (Table) 06/01/19 Range/Units 21:31 BUN 19 H (7-17) mg/dL Glucose 101 H (74-99) mg/dL C-Reactive Protein 14.8 H (<10.0) mg/L Diabetes panel 06/01/19 Range/Units 21:31 Sodium 139 (137-145) mmol/L Potassium 4.4 (3.5-5.1) mmol/L Chloride 106 (98-107) mmol/L Carbon Dioxide 24 (22-30) mmol/L BUN 19 H (7-17) mg/dL Creatinine 0.74 (0.52-1.04) mg/dL Glucose 101 H (74-99) mg/dL Calcium 9.5 (8.4-10.2) mg/dL AST 24 (14-36) U/L ALT 10 (9-52) U/L Alkaline Phosphatase 66 (38-126) U/L Total Protein 7.2 (6.3-8.2) g/dL Albumin 4.2 (3.5-5.0) g/dL Calcium panel 06/01/19 Range/Units 21:31 Calcium 9.5 (8.4-10.2) mg/dL Albumin 4.2 (3.5-5.0) g/dL Pituitary panel 06/01/19 Range/Units 21:31 Sodium 139 (137-145) mmol/L Potassium 4.4 (3.5-5.1) mmol/L Chloride 106 (98-107) mmol/L Carbon Dioxide 24 (22-30) mmol/L BUN 19 H (7-17) mg/dL Creatinine 0.74 (0.52-1.04) mg/dL Glucose 101 H (74-99) mg/dL Calcium 9.5 (8.4-10.2) mg/dL Adrenal panel 06/01/19 Range/Units 21:31 Sodium 139 (137-145) mmol/L Potassium 4.4 (3.5-5.1) mmol/L Chloride 106 (98-107) mmol/L Carbon Dioxide 24 (22-30) mmol/L BUN 19 H (7-17) mg/dL Creatinine 0.74 (0.52-1.04) mg/dL Glucose 101 H (74-99) mg/dL Calcium 9.5 (8.4-10.2) mg/dL Total Bilirubin 0.4 (0.2-1.3) mg/dL AST 24 (14-36) U/L ALT 10 (9-52) U/L Alkaline Phosphatase 66 (38-126) U/L Total Protein 7.2 (6.3-8.2) g/dL Albumin 4.2 (3.5-5.0) g/dL Assessment and Plan (1) History of repair of hiatal hernia Current Visit: Yes Status: Acute Code(s): Z98.890 - OTHER SPECIFIED POSTPROCEDURAL STATES; Z87.19 - PERSONAL HISTORY OF OTHER DISEASES OF THE DIGESTIVE SYSTEM SNOMED Code(s): 267727083 (2) Abdominal pain Current Visit: Yes Status: Acute Code(s): R10.9 - UNSPECIFIED ABDOMINAL PAIN SNOMED Code(s): 79040827 (3) Colitis Current Visit: No Status: Acute Code(s): K52.9 - NONINFECTIVE GASTROENTERITI S AND COLITIS, UNSPECIFIED SNOMED Code(s): 83784884 <Renetta Bower N - Last Filed: 06/02/19 15:48> History of Present Illness History of present illness: As above. Patient reports worsening abdominal pain the last 3-4 days. She reports blood in her stools including epigastric abdominal pain. No exposure to sick contacts. Her symptoms has not improved since admission, we'll proceed with both upper and lower endoscopy. Surgical - Exam Vital Signs Temp Pulse Resp BP Pulse Ox 98.6 F 77 20 156/87 97 06/01/19 21:10 06/01/19 21:10 06/01/19 21:10 06/01/19 21:10 06/01/19 21:10 Results - Labs 06/01/19 21:31 06/01/19 21:31 Abnormal Lab Results - Last 24 Hours (Table) 06/01/19 Range/Units 21:31 BUN 19 H (7-17) mg/dL Glucose 101 H (74-99) mg/dL C-Reactive Protein 14.8 H (<10.0) mg/L Diabetes panel 06/01/19 Range/Units 21:31 Sodium 139 (137-145) mmol/L Potassium 4.4 (3.5-5.1) mmol/L Chloride 106 (98-107) mmol/L Carbon Dioxide 24 (22-30) mmol/L BUN 19 H (7-17) mg/dL Creatinine 0.74 (0.52-1.04) mg/dL Glucose 101 H (74-99) mg/dL Calcium 9.5 (8.4-10.2) mg/dL AST 24 (14-36) U/L ALT 10 (9-52) U/L Alkaline Phosphatase 66 (38-126) U/L Total Protein 7.2 (6.3-8.2) g/dL Albumin 4.2 (3.5-5.0) g/dL Calcium panel 06/01/19 Range/Units 21:31 Calcium 9.5 (8.4-10.2) mg/dL Albumin 4.2 (3.5-5.0) g/dL Pituitary panel 06/01/19 Range/Units 21:31 Sodium 139 (137-145) mmol/L Potassium 4.4 (3.5-5.1) mmol/L Chloride 106 (98-107) mmol/L Carbon Dioxide 24 (22-30) mmol/L BUN 19 H (7-17) mg/dL Creatinine 0.74 (0.52-1.04) mg/dL Glucose 101 H (74-99) mg/dL Calcium 9.5 (8.4-10.2) mg/dL Adrenal panel 06/01/19 Range/Units 21:31 Sodium 139 (137-145) mmol/L Potassium 4.4 (3.5-5.1) mmol/L Chloride 106 (98-107) mmol/L Carbon Dioxide 24 (22-30) mmol/L BUN 19 H (7-17) mg/dL Creatinine 0.74 (0.52-1.04) mg/dL Glucose 101 H (74-99) mg/dL Calcium 9.5 (8.4-10.2) mg/dL Total Bilirubin 0.4 (0.2-1.3) mg/dL AST 24 (14-36) U/L ALT 10 (9-52) U/L Alkaline Phosphatase 66 (38-126) U/L Total Protein 7.2 (6.3-8.2) g/dL Albumin 4.2 (3.5-5.0) g/dL
[2019-06-03] MEDS: ONDANSETRON 4 MG/2 ML VIAL IVP PRN ×2 (00:48→12:12)
[2019-06-03] MEDS: ACETAMINOPHEN TAB 325 MG TAB PO PRN ×2 (03:55→16:43)
[2019-06-03] MEDS: MORPHINE SULFATE 4 MG/ML SYRINGE IV PRN ×3 (03:56→12:57)
[2019-06-03] MEDS: SODIUM CHLORIDE 0.9% 1,000 ML IV SCH (06:21)
--- NOTE | 2019-06-03 07:47 | P.HPADDEND ---
H&P Addendum H&P Addendum Date: 06/03/19 Patient presents with epigastric abdominal pain including change in bowel habits and blood in stools. Pain has progressed since hospitalization. We'll proceed with both upper and lower endoscopy.
[2019-06-03] MEDS: SERTRALINE 100 MG TAB PO SCH (09:00)
[2019-06-03] MEDS: GABAPENTIN 100 MG CAP PO SCH (09:00)
[2019-06-03] MEDS: lamoTRIgine 25 MG TAB PO SCH (09:00)
[2019-06-03] MEDS: NON-FORMULARY DRUG (Estrogen,Con/M-Progest Acet [Prempro 0.625-2.5 Mg Tablet] 1 TAB) PO SCH (09:00)
[2019-06-03] MEDS ORDERED: ACETAMINOPHEN IV (For NPO) 1,000 MG in EMPTY BAG 1 BAG IVPB STA (09:22)
[2019-06-03 12:40] LABS: Basophils % (A) 0 %; Eosinophils # (A) 0.1 k/uL (0-0.7); Eosinophils % (A) 3 %; HCT 35.5 % (34.0-46.0); HGB 11.9 gm/dL (11.4-16.0); Lymphocytes # (A) 1.4 k/uL (1.0-4.8); Lymphocytes % (A) 33 %; MCH 30.2 pg (25.0-35.0); MCHC 33.6 g/dL (31.0-37.0); MCV 89.9 fL (80.0-100.0); Mean Platelet Volume 7.6; Monocytes # (A) 0.2 k/uL (0-1.0); Monocytes % (A) 5 %; Neutrophils # (A) 2.5 k/uL (1.3-7.7); Neutrophils % (A) 57 %; Platelet Count 261 k/uL (150-450); RBC 3.95 m/uL (3.80-5.40); WBC 4.4 k/uL (3.8-10.6)
[2019-06-03] MEDS ORDERED: LIDOCAINE 1% INJ 10MG/ML (20 ML MDV) ONE (14:09)
[2019-06-03] MEDS ORDERED: MIDAZOLAM 2 MG/2 ML VIAL ONE (14:09)
[2019-06-03] MEDS ORDERED: fentaNYL (PF) 50 MCG/ML 2 ML AMP ONE (14:09)
[2019-06-03] MEDS ORDERED: PROPOFOL 10 MG/ML 20 ML VIAL IV ONE (14:09)
[2019-06-03] MEDS ORDERED: IV FLUID CONTINUATION 1,000 ML IV ONE ×2 (14:21)
--- NOTE | 2019-06-03 14:31 | P.PCN ---
Date of Procedure: 06/03/19 Description of Procedure: PREOPERATIVE DIAGNOSIS: Gastrointestinal bleeding Epigastric abdominal pain Gastroesophageal reflux disease Moderate obesity due to excess calories, BMI 37.8 Irritable bowel syndrome POSTOPERATIVE DIAGNOSIS: Gastrointestinal bleeding Epigastric abdominal pain Gastroesophageal reflux disease Moderate obesity due to excess calories, BMI 37.8 Irritable bowel syndrome Superficial gastritis with superficial ulcers without bleeding Duodenitis acute without bleeding OPERATION: Esophagogastroduodenoscopy with biopsies along antrum and duodenum SURGEON: Renetta Bower MD ANESTHESIA: MAC. INDICATIONS: The patient is a 48-year-old female who presents with epigastric abdominal pain including gastrointestinal hemorrhage. Upper endoscopy was offered for diagnostic assessment. Benefits and risks of the procedure were described. Informed consent was obtained. DESCRIPTION: The patient was brought into the endoscopy suite and laid in the left lateral decubitus position. An Olympus gastroscope was passed along the posterior oropharynx down to the distal esophagus where the squamocolumnar junction was encountered at 36 cm from the incisors. The stomach was entered and bile reflux was found. Additional findings are listed below. Biopsies with cold forceps were obtained of the antrum. The first through third portion of the duodenum was examined and remarkable for duodenitis first portion. Retroflexion of the scope confirmed Hill grade 1 lower esophageal valve. The squamocolumnar junction demostrated LA grade A erosive esophagitis. The stomach was desufflated. The patient tolerated the procedure well. FINDINGS: Squamocolumnar junction 37 cm from the incisors. Diaphragmatic hiatus at 37 cm. No recurrent hiatal hernia Hill grade 1 lower esophageal valve. LA grade A erosive esophagitis. Active duodenitis. Gastritis with superficial gastric ulcers without bleeding RECOMMENDATIONS: Recommend proton pump inhibitor for treatment of duodenitis and gastric ulcers
--- NOTE | 2019-06-03 14:48 | P.PCN ---
Date of Procedure: 06/03/19 Description of Procedure: PREOPERATIVE DIAGNOSIS: Gastrointestinal hemorrhage Rectal bleeding Diffuse abdominal pain Abnormal CT with colitis POSTOPERATIVE DIAGNOSIS: Gastrointestinal hemorrhage Rectal bleeding Diffuse abdominal pain Abnormal CT with colitis Diverticulosis, scattered. OPERATION: Colonoscopy to the ascending colon Colonoscopy with random biopsies using cold forceps. SURGEON: Renetta Bower MD. ANESTHESIA: MAC. INDICATIONS: The patient is a 48-year-old female who presents with gastrointestinal bleeding, abnormal computed tomography scan for colitis and rectal bleeding. Benefits and risks were described and informed consent was obtained. DESCRIPTION OF PROCEDURE: The patient had undergone NuLytely prep. She had been brought into the operating room and laid in the left lateral decubitus position. After adequate intravenous sedation, the rectum was examined with 2% lidocaine jelly. No external hemorrhoids were encountered. The rectal tone was within normal limits. No lesions were palpated in the rectal vault. An Olympus colonoscope was advanced until the ascending colon was viewed. The prep was poor with moderate liquid stools prohibiting full view of the mucosa. Small and few scattered diverticulosis was found along the sigmoid colon and the sigmoid colon was highly redundant. Her poor prep limited exclusion of colonic polyps. No active bleeding or blood was found. Retroflexion of the scope demonstrated grade 1 internal hemorrhoids without active bleeding or inflammation. The colon was desufflated. The patient had tolerated the procedure well. Withdrawal time was over 6 minutes. FINDINGS: Aronchick preparation quality scale 4 (1-5) Internal hemorrhoids, grade 1 No external prolapsed hemorrhoids. Poor prep limiting exclusion of colonic polyps No active bleeding identified throughout the colon Few sigmoid scattered diverticulosis Highly redundant sigmoid colon View limited to ascending colon without complete review of ileocecal valve or appendiceal orifice RECOMMENDATIONS: Lower as needed Plan - Discharge Summary Discharge Rx Participant: Yes New Discharge Prescriptions: No Action Loratadine [Claritin] 10 mg PO DAILY Sertraline [Zoloft] 100 mg PO BID ALPRAZolam [Xanax] 0.25 mg PO TID PRN PRN Reason: Anxiety Naproxen [Naprosyn] 250 mg PO DAILY PRN PRN Reason: Pain Estrogen,Con/M-Progest Acet [Prempro 0.625-2.5 mg Tablet] 1 tab PO DAILY lamoTRIgine [LaMICtal] 50 mg PO BID L.acidoph,Paracasei, B.lactis [Probiotic] 1 cap PO DAILY Gabapentin [Neurontin] 100 mg PO BID Ergocalciferol (Vitamin D2) [Vitamin D2] 50,000 unit PO MO rOPINIRole HCL [Requip] 2 mg PO HS Amoxicillin/Potassium Clav [Augmentin 875-125 Tablet] 1 tab PO Q12HR #20 tab Discharge Medication List Loratadine [Claritin] 10 mg PO DAILY 11/05/17 [History] Sertraline [Zoloft] 100 mg PO BID 11/05/17 [History] ALPRAZolam [Xanax] 0.25 mg PO TID PRN 05/29/19 [History] Amoxicillin/Potassium Clav [Augmentin 875-125 Tablet] 1 tab PO Q12HR #20 tab 05/29/19 [Rx] Ergocalciferol (Vitamin D2) [Vitamin D2] 50,000 unit PO MO 05/29/19 [History] Estrogen,Con/M-Progest Acet [Prempro 0.625-2.5 mg Tablet] 1 tab PO DAILY 05/29/19 [History] Gabapentin [Neurontin] 100 mg PO BID 05/29/19 [History] L.acidoph,Paracasei, B.lactis [Probiotic] 1 cap PO DAILY 05/29/19 [History] Naproxen [Naprosyn] 250 mg PO DAILY PRN 05/29/19 [History] lamoTRIgine [LaMICtal] 50 mg PO BID 05/29/19 [History] rOPINIRole HCL [Requip] 2 mg PO HS 05/29/19 [History] Follow up Appointment(s)/Referral(s): Baltazar Ramos MD [Primary Care Provider] - 1-2 days
[2019-06-03] MEDS ORDERED: PANTOPRAZOLE 40 MG TABLET PO SCH (17:30)
[2019-06-03 17:39] VITALS: RESP 16; TEMP 97.3
[2019-06-03 17:44] VITALS: BP 146/81; PULSE 67
[2019-06-03] MEDS ORDERED: metroNIDAZOLE-NS PMX 500 MG in SALINE 1 100ML.BAG IVPB SCH (18:00)
== END 2019-06-03 19:59 | disposition home or self-care (01) | DRG 392 ==
LOC: EC 21:06 → 6PED 23:15 → OBSVTOIN 06-03 11:45
PROVIDERS: ADMIT Hospitalist; ATTEND Hospitalist
PROC: 0DBE8ZX Excision of Large Intestine, Via Natural or Artificial Opening Endoscopic, Diagnostic (ICD-10-PCS; 2019-06-03)
PROC: 0DB98ZX Excision of Duodenum, Via Natural or Artificial Opening Endoscopic, Diagnostic (ICD-10-PCS; principal; 2019-06-03 13:45)
PROC: 0DB78ZX Excision of Stomach, Pylorus, Via Natural or Artificial Opening Endoscopic, Diagnostic (ICD-10-PCS; 2019-06-03 13:45)
DX: K58.9 Irritable bowel syndrome, unspecified (principal); Q43.8 Other specified congenital malformations of intestine; K22.10 Ulcer of esophagus without bleeding; K64.8 Other hemorrhoids; M19.90 Unspecified osteoarthritis, unspecified site; Z68.37 Body mass index [BMI] 37.0-37.9, adult; E66.09 Other obesity due to excess calories; E78.5 Hyperlipidemia, unspecified; F32.9 Major depressive disorder, single episode, unspecified; F41.9 Anxiety disorder, unspecified; K21.9 Gastro-esophageal reflux disease without esophagitis; K25.9 Gastric ulcer, unspecified as acute or chronic, without hemorrhage or perforation; K29.70 Gastritis, unspecified, without bleeding; K29.80 Duodenitis without bleeding; Z79.899 Other long term (current) drug therapy; Z79.890 Hormone replacement therapy
CPT/HCPCS: 36415; 43239; 45380; 80053; 81003; 81025; 82150; 83690; 85025; 86140; 88305; 96361; 96374; 96375; 99284

== ENCOUNTER → 2019-08-22 | Outpatient (CLI) | payer OTHER ==
--- NOTE | 2019-08-22 15:12 | NM ---
EXAMINATION TYPE: NM hepatobiliary w EF DATE OF EXAM: 08/22/2019 COMPARISON: NONE INDICATION: Cholecystitis R 10.84 TECHNIQUE: After the intravenous administration of 4.5 mCi Tc 99m Mebrofenin hepatobiliary scintigrap hy is performed. Images were obtained immediately post injection. FINDINGS: There is prompt uptake and excretion of radiotracer by the liver. Extrahepatic ducts are identified at 8 minutes. The gallbladder is visualized within 8 minutes. Small bowel activity is noted after one hour At one hour 8 ounces of oral ensure plus is given to mimic CCK and gallbladder ejection fraction is c alculated at 74 %, which is in the normal range. (Normal >35% and <80%.). IMPRESSION: 1. Normal hepatobiliary scan
--- NOTE | 2019-08-22 15:57 | US ---
EXAMINATION TYPE: US gallbladder DATE OF EXAM: 08/22/2019 COMPARISON: CT 2019 CLINICAL HISTORY: K81.0 Cholecystitis R10.84. EXAM MEASUREMENTS: Liver Length: 12.8 cm Gallbladder Wall: 0.1 cm CBD: 0.2 cm Right Kidney: 9.9 x 4.2 x 6.7 cm Pancreas: Obscured by bowel gas Liver: small fatty liver sparing rt lobe 3.5 x 3.2 x 2.5 Gallbladder: wnl Evidence for sonographic Rodriguez's sign: No CBD: wnl Right Kidney: wnl IMPRESSION: 1. Normal right upper quadrant ultrasound
== END | disposition home or self-care (01) ==
LOC: RADUSWWP 12:21
PROVIDERS: ATTEND Surgery Plastic and Reconstructive Surgery
DX: K81.0 Acute cholecystitis (principal); R10.84 Generalized abdominal pain
CPT/HCPCS: 76705; 78226; A9537

== ENCOUNTER 2019-10-27 03:27 | Emergency (ER) | payer OTHER ==
[2019-10-27 03:37] VITALS: RESP 18; TEMP 97.6
[2019-10-27] MEDS ORDERED: ONDANSETRON 4 MG/2 ML VIAL IVP STA (04:03)
[2019-10-27] MEDS ORDERED: MORPHINE SULFATE 4 MG/ML SYRINGE IV STA (04:03)
[2019-10-27] MEDS ORDERED: SODIUM CHLORIDE 0.9% 1,000 ML IV STA (04:03)
--- NOTE | 2019-10-27 04:17 | ED ---
Abdominal Pain HPI - General Chief Complaint: Abdominal Pain Stated Complaint: abd/back pain Source: patient Mode of arrival: ambulatory Limitations: no limitations - History of Present Illness Initial Comments: Spencer is a 49-year-old female who presents the emergency department today for evaluation of abdominal pain. Patient reports that she's been seen for abdominal pain in the fall was diagnosed with diverticulitis and colitis, she was admitted to the hospital and subsequently treated with oral antibiotic should complete resolution of that. She's been dealing with abdominal pain intermittently since and is followed with Dr. Delvalle, she is scheduled to have a cholecystectomy on November 11. Patient reports that this evening she had a regular diet, around 8 PM she developed diarrhea and states that lasted for approximately 2 hours, she was unable to go to bed around 10 PM but woke at 1 AM with severe abdominal pain which prompted her to come to the ER for eval uation. - Related Data Home Medications Medication Instructions Recorded Confirmed Loratadine [Claritin] 10 mg PO DAILY 11/05/17 06/01/19 Sertraline [Zoloft] 100 mg PO BID 11/05/17 06/01/19 ALPRAZolam [Xanax] 0.25 mg PO TID PRN 05/29/19 06/01/19 Ergocalciferol (Vitamin D2) 50,000 unit PO MO 05/29/19 06/01/19 [Vitamin D2] Estrogen,Con/M-Progest Acet 1 tab PO DAILY 05/29/19 06/01/19 [Prempro 0.625-2.5 mg Tablet] Gabapentin [Neurontin] 100 mg PO BID 05/29/19 06/01/19 L.acidoph,Paracasei, B.lactis 1 cap PO DAILY 05/29/19 06/01/19 [Probiotic] lamoTRIgine [LaMICtal] 50 mg PO BID 05/29/19 06/01/19 rOPINIRole HCL [Requip] 2 mg PO HS 05/29/19 06/01/19 Previous Rx's Medication Instructions Recorded Omeprazole 40 mg PO DAILY #14 capsule. 06/03/19 metroNIDAZOLE [Flagyl] 500 mg PO BID #10 tab 06/03/19 Allergies Allergy/AdvReac Type Severity Reaction Status Date / Time No Known Allergies Allergy Verified 10/27/19 03:37 Review of Systems ROS Statement: Those systems with pertinent positive or pertinent negative responses have been documented in the HPI. ROS Other: All systems not noted in ROS Statement are negative. Past Medical History Past Medical History: GERD/Reflux, Hyperlipidemia, Osteoarthritis (OA) Additional Past Medical History / Comment(s): hiatal hernia, abdominla pain with eatting, anemia, History of Any Multi-Drug Resistant Organisms: None Reported Past Surgical History: Orthopedic Surgery, Tubal Ligation, Uterine Ablation Additional Past Surgical History / Comment(s): HANS KNEE arthroscopy, Past Anesthesia/Blood Transfusion Reactions: No Reported Reaction Additional Past Anesthesia/Blood Transfusion Reaction / Comment(s): Anesthesia for lesion on cyst in groin area. feet curled lateral, high bp and shaking. Pt will find out name of med that did this to her. Never had a problem with anesthesia from [facility]. Past Psychological History: Anxiety, Depression Smoking Status: Never smoker Past Alcohol Use History: None Reported Past Drug Use History: None Reported - Past Family History Mother Family Medical History: Cancer Father Family Medical History: Cancer Brother(s) Family Medical History: Cancer General Exam - General Exam Comments Initial Comments: Physical Exam GENERAL: Patient is well-developed and well-nourished. Patient is nontoxic and well- hydrated and is in no distress. HENT: Normocephalic, Atraumatic. EYES: PERRL, EOMI PULMONARY: Unlabored respirations. No audible rales rhonchi or wheezing was noted. CARDIOVASCULAR: There is a regular rate and rhythm without any murmurs gallops or rubs. ABDOMEN: Generalized tenderness, no peritoneal signs SKIN: Skin is clear with no lesions or rashes and otherwise unremarkable. : Deferred NEUROLOGIC: Patient is alert and oriented x3. Moving all extremities spontaneously MUSCULOSKELETAL: Normal extremities with adequate strength and full range of motion. No lower extremity swelling or edema. No calf tenderness. PSYCHIATRIC: Normal psychiatric evaluation. Limitations: no limitations Course Vital Signs 10/27/19 10/27/19 03:34 05:44 Temperature 97.6 F Pulse Rate 89 76 Respiratory 18 18 Rate Blood Pressure 150/79 144/83 O2 Sat by Pulse 100 96 Oximetry Medical Decision Making - Medical Decision Making She was seen and evaluated, history is obtained from the patient history and physical exam relatively unremarkable with concerning for possible recurrence of diverticulitis, labs and imaging will be ordered pain management and antiemetics were ordered. Exam is relatively unremarkable labs will be ordered. Patient was reevaluated after receiving medications. She reports resolution of pain is resting comfortably. However would like me to contact her surgeon Dr. Delvalle to discuss having her gallbladder out today instead. I also discussed with the patient op surgeon for repeat imaging however given that she has normal vital signs and resolution of her pain this time she is comfortable avoiding any radiation. I advised the patient that we'll continue to observe her to make sure her pain doesn't return in the next hour and that she is stable for discharge and at that time I will notify her surgeon. Shortly after evaluating the patient I received a telephone call from her surgeon apparently the patient had called the surgeon at home and reported that she was in the ER with abdominal pain. I discussed patient's physical exam findings, labs resolution of patient's pain after medications and plan for outpatient surgery on . Given these findings surgeon continues to recommend plan for dietary modifications and surgery as scheduled. No indication for admission at this time. Reevaluated the patient approximately one hour later she reported her pain was slightly coming back however she would still like to be discharged home at this time. She would not like any pain medications that she doesn't like taking them at home and would like to try to manage this on her own. Given the recurrence of the patient's pain I again discussed option for CT imaging patient declined and said she preferred to be discharged. - Lab Data Result diagrams: 10/27/19 04:19 10/27/19 04:19 Lab Results 10/27/19 10/27/19 10/27/19 Range/Units 04:14 04:19 04:19 WBC 6.2 (3.8-10.6) k/uL RBC 4.58 (3.80-5.40) m/uL Hgb 13.8 (11.4-16.0) gm/dL Hct 41.7 (34.0-46.0) % MCV 91.0 (80.0-100.0) fL MCH 30.0 (25.0-35.0) pg MCHC 33.0 (31.0-37.0) g/dL RDW 12.0 (11.5-15.5) % Plt Count 249 (150-450) k/uL Neutrophils % 52 % Lymphocytes % 36 % Monocytes % 6 % Eosinophils % 3 % Basophils % 1 % Neutrophils # 3.2 (1.3-7.7) k/uL Lymphocytes # 2.2 (1.0-4.8) k/uL Monocytes # 0.4 (0-1.0) k/uL Eosinophils # 0.2 (0-0.7) k/uL Basophils # 0.0 (0-0.2) k/uL Sodium 139 (137-145) mmol/L Potassium 4.0 (3.5-5.1) mmol/L Chloride 104 (98-107) mmol/L Carbon Dioxide 26 (22-30) mmol/L Anion Gap 9 mmol/L BUN 26 H (7-17) mg/dL Creatinine 0.95 (0.52-1.04) mg/dL Est GFR (CKD-EPI)AfAm 81 (>60 ml/min/1.73 sqM) Est GFR (CKD-EPI)NonAf 71 (>60 ml/min/1.73 sqM) Glucose 91 (74-99) mg/dL Calcium 9.3 (8.4-10.2) mg/dL Total Bilirubin 0.5 (0.2-1.3) mg/dL AST 26 (14-36) U/L ALT 14 (4-34) U/L Alkaline Phosphatase 73 (38-126) U/L Total Protein 7.0 (6.3-8.2) g/dL Albumin 4.1 (3.5-5.0) g/dL Lipase 135 (23-300) U/L Urine Color Light Yellow Urine Appearance Clear (Clear) Urine pH 6.5 (5.0-8.0) Ur Specific [place] 1.009 (1.001-1.035) Urine Protein Negative (Negative) Urine Glucose (UA) Negative (Negative) Urine Ketones Negative (Negative) Urine Blood Negative (Negative) Urine Nitrite Negative (Negative) Urine Bilirubin Negative (Negative) Urine Urobilinogen <2.0 (<2.0) mg/dL Ur Leukocyte Esterase Negative (Negative) Disposition Clinical Impression: Abdominal pain Disposition: HOME SELF-CARE Condition: Stable Instructions (If sedation given, give patient instructions): Abdominal Pain (ED) Additional Instructions: Continue to follow a bland, fat free, no greasy food diet Follow up with Dr Bower as planned for cholecystectomy on 11/11 Return to the ER for any acute worsening or development of new or concerning symptoms Is patient prescribed a controlled substance at d/c from ED?: No Referrals: Baltazar Ramos MD [Primary Care Provider] - 1-2 days
[2019-10-27 04:31] LABS: Basophils % (A) 1 %; Eosinophils # (A) 0.2 k/uL (0-0.7); Eosinophils % (A) 3 %; HCT 41.7 % (34.0-46.0); HGB 13.8 gm/dL (11.4-16.0); Lymphocytes # (A) 2.2 k/uL (1.0-4.8); Lymphocytes % (A) 36 %; Monocytes # (A) 0.4 k/uL (0-1.0); Monocytes % (A) 6 %; Neutrophils # (A) 3.2 k/uL (1.3-7.7); Neutrophils % (A) 52 %; Platelet Count 249 k/uL (150-450); RBC 4.58 m/uL (3.80-5.40); WBC 6.2 k/uL (3.8-10.6)
[2019-10-27 04:33] LABS: Appearance,Urine Clear (Clear); Bilirubin,Urine Negative (Negative); Blood,Urine Negative (Negative); Color,Urine Light Yellow; Glucose,Urine (UA) Negative (Negative); Ketones,Urine Negative (Negative); Leukocyte Esterase,Urine Negative (Negative); Nitrite,Urine Negative (Negative); PH, Urine 6.5 (5.0-8.0); Protein,Urine Negative (Negative); Specific Gravity,Urine 1.009 (1.001-1.035); Urobilinogen,Urine <2.0 mg/dL (<2.0)
[2019-10-27 04:47] LABS: Albumin 4.1 g/dL (3.5-5.0); Calcium 9.3 mg/dL (8.4-10.2); Total Bilirubin 0.5 mg/dL (0.2-1.3)
[2019-10-27 05:45] VITALS: BP 144/83; PULSE 76
== END 2019-10-27 06:37 | disposition home or self-care (01) ==
LOC: EC 03:27
DX: R10.9 Unspecified abdominal pain (principal); R19.7 Diarrhea, unspecified; M19.90 Unspecified osteoarthritis, unspecified site; F32.9 Major depressive disorder, single episode, unspecified; F41.9 Anxiety disorder, unspecified; Z79.890 Hormone replacement therapy; Z79.899 Other long term (current) drug therapy; Z87.19 Personal history of other diseases of the digestive system; Z53.29 Procedure and treatment not carried out because of patient's decision for other reasons
CPT/HCPCS: 99284; 96374; 96375; 96361; 36415; 80053; 83690; 85025; 81003; J2270; J2405

== ENCOUNTER 2019-10-31 08:25 | Day surgery (SDC) | payer OTHER ==
[2019-10-28 09:07] VITALS: BMI 37.7
--- NOTE | 2019-10-31 03:41 | P.GSHP ---
History of Present Illness H&P Date: 10/31/19 CHIEF COMPLAINT: Cholecystitis HISTORY OF PRESENT ILLNESS: The patient is a 49-year-old female who presents with history of epigastric including right upper quadrant abdominal pain. She underwent diagnostic studies for her gallbladder. Separately her clinical picture was consistent with cholecystitis. Now she presents for surgical intervention. PAST MEDICAL HISTORY: Please see list PAST SURGICAL HISTORY: Please see list MEDICATIONS: Please see list ALLERGIES: Please see list SOCIAL HISTORY: Please see list FAMILY HISTORY: Please see list REVIEW OF ORGAN SYSTEMS: CONSTITUTIONAL: No reports of fevers or chills. HEENT: Denies any troubles with the vision or hearing. GI: No blood in stools or constipation. Has change in bowel habits. PHYSICAL EXAM: VITAL SIGNS: Afebrile vital signs stable GENERAL: Well-developed pleasant in no acute distress. HEENT: No scleral icterus. Extraocular movements grossly intact. Moist buccal mucosa. NECK: Supple without lymphadenopathy. CHEST: Unlabored respirations. Equal bilateral excursions. CARDIOVASCULAR: Regular rate regular rhythm rhythm. Distal 2+ pulses. ABDOMEN: Soft, nondistended. Tender along the epigastrium and right upper quadrant. MUSCULOSKELETAL: No clubbing, cyanosis, or edema. NEURO: Cranial nerves II to XII within normal limits. No focal or lateralizing signs. PSYCH: Alert and oriented to person, place and time. SKIN: Well-perfused good skin turgor. ASSESSMENT: 1. Epigastric and right upper quadrant abdominal pain 2. Chronic cholecystitis PLAN: 1. Will need a robotic cholecystectomy possible open. Benefits and risks were described. 2. Heparin for DVT prophylaxis 5000 units. 3. Antibiotic prophylaxis. Past Medical History Past Medical History: GERD/Reflux, Osteoarthritis (OA) Additional Past Medical History / Comment(s): neuropathy History of Any Multi-Drug Resistant Organisms: None Reported Past Surgical History: Orthopedic Surgery, Tubal Ligation, Uterine Ablation Additional Past Surgical History / Comment(s): HANS KNEE arthroscopy, hiatal hernia sx, cyst groin area removed Past Anesthesia/Blood Transfusion Reactions: Previous Problems w/ Anesthesia Additional Past Anesthesia/Blood Transfusion Reaction / Comment(s): Anesthesia for lesion on cyst in groin area. feet curled lateral, high bp and shaking. Has copy from [employer] but is unable to read name, to bring in with her, Never had a problem with anesthesia from [facility] since this incident Past Psychological History: Anxiety, Depression Smoking Status: Never smoker Past Alcohol Use History: None Reported Past Drug Use History: None Reported - Past Family History Mother Family Medical History: Cancer Father Family Medical History: Cancer Brother(s) Family Medical History: Cancer Medications and Allergies Home Medications Medication Instructions Recorded Confirmed Type Loratadine [Claritin] 10 mg PO DAILY 11/05/17 10/28/19 History Sertraline [Zoloft] 100 mg PO BID 11/05/17 10/28/19 History ALPRAZolam [Xanax] 0.25 mg PO TID PRN 05/29/19 10/28/19 History Ergocalciferol (Vitamin D2) 50,000 unit PO MO 05/29/19 10/28/19 History [Vitamin D2] Estrogen,Con/M-Progest Acet 1 tab PO DAILY 05/29/19 10/28/19 History [Prempro 0.625-2.5 mg Tablet] Gabapentin [Neurontin] 100 mg PO TID 05/29/19 10/28/19 History rOPINIRole HCL [Requip] 2 mg PO HS 05/29/19 10/28/19 History buPROPion XL [Wellbutrin Xl] 150 mg PO QAM 10/28/19 10/28/19 History lamoTRIgine [LaMICtal Xr] 50 mg PO QAM 10/28/19 10/28/19 History lamoTRIgine [LaMICtal Xr] 100 mg PO HS 10/28/19 10/28/19 History Allergies Allergy/AdvReac Type Severity Reaction Status Date / Time No Known Allergies Allergy Verified 10/27/19 03:37
[~2019-10-31 08:25] MED LIST changes: +ACETAMINOPHEN TAB 500 MG TAB PO STA; -CHLORHEXIDINE GLUCONATE 15 ML CUP MUCOUS MEM ONE; +DEXAMETHASONE SOD PHOSPHATE 10 MG/ML 1 ML VIAL IV ONE; -ENOXAPARIN 40 MG/0.4 ML SYRINGE SQ STA; +GABAPENTIN 300 MG CAP PO STA; +HEPARIN SODIUM,PORCINE 5,000 UNIT/ML 1 ML VIAL SQ ONE; +HYDROmorphone 0.5 MG/0.5 ML SYRINGE IVP PRN; +INDOCYANINE GREEN 25 MG VIAL IV STA; +LACTATED RINGERS 1,000 ML IV SCH; -MORPHINE SULFATE 4 MG/ML SYRINGE IV PRN; +ONDANSETRON 4 MG/2 ML VIAL IVP ONE; -ceFAZolin IN SWFI 2 GM/20 ML SYRINGE IVP ONE
[2019-10-31] MEDS ORDERED: ONDANSETRON 4 MG/2 ML VIAL IVP ONE (09:05)
[2019-10-31] MEDS ORDERED: SCOPOLAMINE 1.5MG/72HR PATCH TRANSDERM ONE (09:08)
[2019-10-31] MEDS ORDERED: GABAPENTIN 100 MG CAP PO STA (09:09)
[2019-10-31] MEDS ORDERED: PROPOFOL 10 MG/ML 20 ML VIAL IV ONE (09:20)
[2019-10-31] MEDS ORDERED: LIDOCAINE 1% INJ 10MG/ML (20 ML MDV) ONE (09:20)
[2019-10-31] MEDS ORDERED: ROCURONIUM BROMIDE 10 MG/ML 10 ML VIAL IV ONE (09:20)
[2019-10-31] MEDS ORDERED: fentaNYL (PF) 50 MCG/ML 2 ML AMP ONE (09:20)
[2019-10-31] MEDS ORDERED: GLYCOPYRROLATE 0.2 MG/ML 2 ML VIAL ONE (09:20)
[2019-10-31] MEDS ORDERED: NEOSTIGMINE 1 MG/ML 10 ML VIAL ONE (09:20)
[2019-10-31] MEDS ORDERED: LIDOCAINE 1%-EPI 1:100,000 20 ML VIAL SQ ONE (10:05)
--- NOTE | 2019-10-31 10:35 | P.OP ---
Date of Procedure: 10/31/19 Description of Procedure: SURGEON: RENETTA BOWER MD PREOPERATIVE DIAGNOSES: 1. Right upper quadrant abdominal pain 2. Chronic cholecystitis 3. Morbid obesity due to excess calories, BMI 36.8 4. Depressive disorder 5. Generalized anxiety disorder 6. Neuropathy POSTOPERATIVE DIAGNOSES: 1. Right upper quadrant abdominal pain 2. Chronic cholecystitis 3. Morbid obesity due to excess calories, BMI 36.8 4. Depressive disorder 5. Generalized anxiety disorder 6. Neuropathy OPERATION: Robotic-assisted da Evy Xi laparoscopic cholecystectomy, multiport with FIREFLY ESTIMATED BLOOD LOSS: 5 mL. SPECIMENS REMOVED: Gallbladder. COMPLICATIONS: None. OPERATIVE FINDINGS: 1. Chronic cholecystitis 2. Console time 14 minutes INDICATIONS: The patient is a 49-year-old female who presents with chronic cholelcystitis with epigastric and right upper quadrant abdominal pain. Surgical intervention with a laparoscopic cholecystectomy was described at length including injury to the biliary tree, bleeding, infection, need for further surgery. Informed consent was obtained. Robotic assisted laparoscopic approach was described. Benefits and risks of the procedure including but not limited to bleeding, infection, injury to the biliary tree was described. Informed consent was obtained. DESCRIPTION OF PROCEDURE: Patient was brought to the operating room, placed in supine position. After general induction, the abdomen had been prepped and draped in standard sterile fashion. The robotic da Evy XI system was primed. After a timeout protocol was performed, the patient had been prepped and draped in standard sterile fashion. The patient was injected with indocyanine green. A 5 mm 0 degrees laparoscopic trocar entry was performed along the left upper quadrant. The abdomen insufflated to 15 mmHg pressure which was tolerated well. Diagnostic laparoscopy demonstrated no injury to bowel viscera or mesentery. The liver surface was unremarkable. Next, two 8 mm robotic ports were placed along the right upper abdomen. The camera 8-mm port was maintained along the epigastrium. Another 8 mm port was placed along the left upper abdominal wall after exchanging the 5 mm port. Please note that the ports were placed at least 10 to 15 cm away from the target anatomy of the gallbladder. The robot was docked along the left lateral abdomen. The patient was repositioned in reverse Trendelenburg position. Using a grasper for arm 3, a grasper for arm 4, including hook cautery for arm 1, the robotic system was docked and primed as described. Instruments were interchanged by the surgical services assistant including hook cautery, Bovie cautery and clip appliers. I had sat at the console. The gallbladder fundus was retracted over the dome of the liver. Initial attention was brought to the infundibulum which was gently retracted in the inferior lateral approach. Using a grasper, the cystic duct including the cystic artery was carefully skeletonized. FIREFLY was used to identify the cystic artery and cystic structures. A critical view of safety was obtained. Large PLASTIC clips were used throughout the entire case. Using a clip health informatics instructor 2 clips were placed proximally, and 1 clip was placed between the infundibulum and cystic duct and divided using cautery. Next, the cystic artery was similarly clipped and cauterized. Electro-Bovie cautery was used to remove the gallbladder from the hepatic fossa. Hemostasis was checked and found to be adequate. The robot was undocked. I re-scrubbed into the case. Using a 10 mm Endo Catch bag via the left upper quadrant incision, the specimen was removed from the abdominal cavity. All pneumoperitoneum instruments were evacuated from the abdominal cavity. The incisions were reapproximated using 4-0 Monocryl in an interrupted subcuticular fashion. Fascial defects were less than 8 mm in size. Please note along the trocar sites, local anesthetic was placed as a field block prior to insertion of all instruments. Liquid glue was applied to the skin. At the end of the procedure needle, sponge, and instrument count had been verified correct by the surgical oncologist. The patient was transferred to postanesthesia care unit in stable condition. Intraoperative films were shared with the patient's family who were very pleased with the level of care. Plan - Discharge Summary Discharge Rx Participant: Yes New Discharge Prescriptions: Continue Loratadine [Claritin] 10 mg PO DAILY Sertraline [Zoloft] 100 mg PO BID ALPRAZolam [Xanax] 0.25 mg PO TID PRN PRN Reason: Anxiety Estrogen,Con/M-Progest Acet [Prempro 0.625-2.5 mg Tablet] 1 tab PO DAILY Gabapentin [Neurontin] 100 mg PO TID Ergocalciferol (Vitamin D2) [Vitamin D2] 50,000 unit PO MO rOPINIRole HCL [Requip] 2 mg PO HS buPROPion XL [Wellbutrin XL] 150 mg PO QAM lamoTRIgine [LaMICtal Xr] 100 mg PO HS lamoTRIgine [LaMICtal Xr] 50 mg PO QAM Discharge Medication List Loratadine [Claritin] 10 mg PO DAILY 11/05/17 [History] Sertraline [Zoloft] 100 mg PO BID 11/05/17 [History] ALPRAZolam [Xanax] 0.25 mg PO TID PRN 05/29/19 [History] Ergocalciferol (Vitamin D2) [Vitamin D2] 50,000 unit PO MO 05/29/19 [History] Estrogen,Con/M-Progest Acet [Prempro 0.625-2.5 mg Tablet] 1 tab PO DAILY 05/29/19 [History] Gabapentin [Neurontin] 100 mg PO TID 05/29/19 [History] rOPINIRole HCL [Requip] 2 mg PO HS 05/29/19 [History] buPROPion XL [Wellbutrin XL] 150 mg PO QAM 10/28/19 [History] lamoTRIgine [LaMICtal Xr] 50 mg PO QAM 10/28/19 [History] lamoTRIgine [LaMICtal Xr] 100 mg PO HS 10/28/19 [History] Follow up Appointment(s)/Referral(s): Renetta Bower MD [STAFF PHYSICIAN] - 11/08/19 Patient Instructions/Handouts: Laparoscopic Cholecystectomy (DC) Activity/Diet/Wound Care/Special Instructions: No lifting over 10 pounds in 2 weeks until Nov 14. May shower. No bath tub soaks for two weeks until Nov 14 Diet as tolerated. No driving while on narcotics. Use Tylenol and ibuprofen or Aleve scheduled for the next 24-48 hours for best pain relief. Use ice along incisions for the today to prevent swelling. Discharge Disposition: HOME SELF-CARE
[2019-10-31 10:39] VITALS: TEMP 99
[2019-10-31] MEDS ORDERED: diphenhydrAMINE 50 MG/ML 1 ML VIAL IVP ONE (10:44)
[2019-10-31] MEDS ORDERED: HYDROmorphone 0.5 MG/0.5 ML SYRINGE IVP ONE (10:46)
[2019-10-31 10:47] VITALS: RESP 16
[2019-10-31] MEDS ORDERED: KETOROLAC 30 MG/ML 1 ML VIAL IVP ONE (10:50)
[2019-10-31] MEDS: fentaNYL (PF) 50 MCG/ML 2 ML AMP IVP PRN ×2 (10:55→10:58)
[2019-10-31] MEDS: MEPERIDINE 50 MG/ML SYRINGE IVP ONE ×2 (11:03→11:09)
[2019-10-31] MEDS ORDERED: ACETAMINOPHEN TAB 325 MG TAB PO ONE (12:04)
[2019-10-31 12:39] VITALS: BP 131/67; PULSE 71
== END 2019-10-31 13:30 | disposition home or self-care (01) ==
LOC: OR 08:25
PROVIDERS: ATTEND Surgery Plastic and Reconstructive Surgery
DX: K80.10 Calculus of gallbladder with chronic cholecystitis without obstruction (principal); E66.01 Morbid (severe) obesity due to excess calories; F32.9 Major depressive disorder, single episode, unspecified; F41.1 Generalized anxiety disorder; G62.9 Polyneuropathy, unspecified; K21.9 Gastro-esophageal reflux disease without esophagitis; M19.90 Unspecified osteoarthritis, unspecified site; Z98.890 Other specified postprocedural states; Z68.36 Body mass index [BMI] 36.0-36.9, adult; Z98.51 Tubal ligation status; Z80.9 Family history of malignant neoplasm, unspecified; Z79.810 Long term (current) use of selective estrogen receptor modulators (SERMs); Z79.899 Other long term (current) drug therapy; Z88.5 Allergy status to narcotic agent
CPT/HCPCS: 47562; S2900; 88304

== ENCOUNTER → 2020-05-15 | Outpatient (CLI) | payer OTHER ==
[2020-05-15 14:00] LABS: HGB 13.3 gm/dL (11.4-16.0); MCHC 32.5 g/dL (31.0-37.0); MCV 92.3 fL (80.0-100.0); Mean Platelet Volume 7.4; Platelet Count 267 k/uL (150-450); RBC 4.44 m/uL (3.80-5.40); RDW 12.3 % (11.5-15.5); WBC 7.8 k/uL (3.8-10.6)
[2020-05-15 22:29] LABS: African American GFR (CKD) 86.4 (60.0-200.0); Albumin 4.3 g/dL (3.80-4.90); Albumin/Globulin Ratio 2.05 (1.60-3.17); Anion Gap 10.5 mmol/L (4.00-12.00); BUN/Creat Ratio 18.89 Ratio (12.00-20.00); Calcium 9.4 mg/dL (8.7-10.3); Carbon Dioxide 25.5 mmol/L (21.6-31.8); Globulin 2.1 g/dL (1.6-3.3); Non-African American GFR(CKD) 74.6 (60.0-200.0); Potassium 4.3 mmol/L (3.5-5.5); Total Bilirubin 0.5 mg/dL (0.2-1.2); Total Protein 6.4 g/dL (6.2-8.2)
== END | disposition home or self-care (01) ==
LOC: LABWHC1 11:52
PROVIDERS: ATTEND Physician Assistant
DX: R41.3 Other amnesia (principal)
CPT/HCPCS: 36415; 80053; 82306; 82607; 84439; 84443; 84481; 85027

== ENCOUNTER → 2020-07-10 | Outpatient (CLI) | payer OTHER ==
--- NOTE | 2020-07-10 15:31 | CT ---
EXAMINATION TYPE: CT iac wo con DATE OF EXAM: 07/10/2020 COMPARISON: None HISTORY: left ear pain CT DLP: 150 mGycm. Automated Exposure Control for Dose Reduction was Utilized. TECHNIQUE: CT scan of internal auditory canal is performed without contrast, thin cut axial images ar e obtained, coronal reformatted images are also reviewed. Patient left multiple piercings in during the exam FINDINGS: The external auditory canals are patent bilaterally. Mastoid air cells show no evidence of abnormal opacification bilaterally. The middle ear ossicles are symmetric and unremarkable. There is no evidence of suspicious surrounding soft tissue density to suggest cholesteatoma. The scutum is preserved bilaterally. The cochlea and the semicircular canals are symmetric and unremarkable. Ves tibular aqueduct and internal auditory canal appear unremarkable. No expansion or erosion is evident Temporomandibular joints are maintained bilaterally. Visualized paranasal sinuses are grossly clear. Visualized portion brain parenchyma is felt within normal limits. IMPRESSION: 1. No significant abnormality seen to account for patient's symptoms.
== END | disposition home or self-care (01) ==
LOC: RADCTMAIN 14:36
PROVIDERS: ATTEND Otolaryngology Otolaryngology/Facial Plastic Surgery
DX: H71.03 Cholesteatoma of attic, bilateral (principal)
CPT/HCPCS: 70480

== ENCOUNTER → 2020-08-08 | Outpatient (CLI) | payer OTHER ==
[2020-08-08 14:35] VITALS: BP 141/70; PULSE 81; RESP 16; TEMP 98.5; BMI 41.0
--- NOTE | 2020-08-08 14:56 | P.PN ---
Subjective Progress Note Date: 08/08/20 DATE OF SERVICE: 08/08/2020 CHIEF COMPLAINT: Morbid obesity HISTORY OF PRESENT ILLNESS: Spencer Juares is a 49-year-old female with morbid obesity. She has developed obstructive sleep apnea, osteoarthritis, and hypertensive heart disease. She is completing 5 out of 6 months medical supervised weight loss. No reports of recurrent gastroesophageal reflux disease. She is looking into the sleeve gastrectomy. She has gained weight. She reports new knee and hip pain. At her height of 5 foot 4.25 inches, her ideal body weight is 144 pounds. Her highest weight is 241 pounds, BMI 41.1. She comes in 239 pounds from 241 pounds, 3 years ago. She gained 14 pounds in 3 years. Body mass index was 40.7. She is 94 pounds overweight. PAST MEDICAL HISTORY: 1. Morbid obesity due to excess calories 2. Body mass index 41.2 3. Seasonal ALLERGIES. 4. Obstructive sleep apnea. 5. Osteoarthritis of the hips 6. Hypertensive heart disease. 7. Gastroesophageal reflux disease 8. Anxiety. 9. Depression. 10. Hyperlipidemia. 11. Degenerative joint disease. 12. Asthma. 13. Restless leg syndrome. 14. Osteoarthritis of the knees. PAST SURGICAL HISTORY: 1. Tubal Ligation 2. Uterine ablation. 3. Orthopedic procedure. 4. Upper endoscopy. HOME MEDICATIONS: Home Medications Medication Instructions Recorded Confirmed Loratadine [Claritin] 10 mg PO DAILY 11/05/17 08/27/20 Sertraline [Zoloft] 100 mg PO BID 11/05/17 08/27/20 ALPRAZolam [Xanax] 0.25 mg PO TID PRN 05/29/19 08/27/20 Ergocalciferol (Vitamin D2) 50,000 unit PO MO 05/29/19 08/27/20 [Vitamin D2] Estrogen,Con/M-Progest Acet 1 tab PO DAILY 05/29/19 08/27/20 [Prempro 0.625-2.5 mg Tablet] Gabapentin [Neurontin] 600 mg PO BID 05/29/19 08/27/20 rOPINIRole HCL [Requip] 2 mg PO HS 05/29/19 08/27/20 buPROPion XL [Wellbutrin XL] 300 mg PO QAM 10/28/19 08/27/20 lamoTRIgine [LaMICtal Xr] 100 mg PO BID 10/28/19 08/27/20 Multivitamins, Thera [Multivitamin 1 tab PO DAILY 08/27/20 08/27/20 (formulary)] traMADol HCl [Ultram] 50 mg PO Q6HR PRN 08/27/20 08/27/20 ALLERGIES: Denies. SOCIAL HISTORY: No active tobacco use. FAMILY HISTORY: No family history of ulcerative colitis disease or Crohn's disease. She does have a family history of morbid obesity. She denies any lupus in her family. No reports of stomach or esophageal cancer. REVIEW OF ORGAN SYSTEMS: CONSTITUTIONAL: Her present weight was 241 pounds. At her height of 5 foot 4.25 inches, her ideal body weight is 144 pounds. Her BMI was 41.1 HEENT: Denies any active troubles with hearing or vision. No troubles with swallowing. ENDOCRINE: No diabetes. No hypothyroidism. CARDIOVASCULAR: No reports of palpitations or heart attacks or chest pain. Has hypertension. Has hyperlipidemia. RESPIRATORY: Has daytime somnolence including snoring and sleep apnea. No asthma. Has seasonal ALLERGIES. GI: Denies any bright red blood per rectum or constipation. Does have gastroesophageal reflux disease. MUSCULOSKELETAL: Has lower back pain, left hip and right knee pain. No scoliosis. History of left heel spur. NEURO: Has headaches. No seizure disorders. PSYCH: Has depression without suicidal ideation. Has anxiety. RHEUMATOLOGIC: No lupus. No rheumatoid arthritis. HEMATOLOGIC: Denies any abnormal bleeding or bruising. No personal history of DVTs. SKIN: No rash. No skin cancer. PHYSICAL EXAM: VITAL SIGNS: Height 5 foot 4.25 inches, weight 239 pounds. BMI 41.0 Vital Signs Temp 98.6 F 09/17/17 10:19 Pulse 75 09/17/17 10:19 Resp 16 09/17/17 10:19 BP 111/65 09/17/17 10:19 Pulse Ox GENERAL: Well-developed female in no acute distress. HEENT: No scleral icterus. Extraocular movements grossly intact. Hears conversational speech. No nasal drainage. NECK: Supple without lymphadenopathy. CHEST: Nonlabored respirations with equal bilateral excursions. CARDIOVASCULAR: Regular rate. Distal 2+ pulses. ABDOMEN: Obese, soft, nontender, nondistended. MUSCULOSKELETAL: No clubbing, cyanosis. NEURO: No focal or lateralizing signs. Cranial nerves 2 through 12 grossly within normal limits. PSYCH: Appropriate affect. Alert and oriented to person, place and time. SKIN: Good skin turgor. Well perfused. LABS: Reviewed. TSH is within normal limits ASSESSMENT: 1. Morbid obesity due to excess calories 2. Body mass index 41.2 down to 41.0 3. Seasonal ALLERGIES. 4. Obstructive sleep apnea. 5. Osteoarthritis of the hips 6. Hypertensive heart disease. 7. Gastroesophageal reflux disease 8. Anxiety. 9. Depression. 10. Hyperlipidemia. 11. Degenerative joint disease. 12. Asthma. 13. Restless leg syndrome. 14. Family history of morbid obesity. 15. Diaphragmatic hiatal hernia. 16. Iron deficiency. PLAN: 1. She is on mood stabilizer that may put her at risk weight gain. 3. Recommend food and exercise journal. Objective - Vital Signs Vital signs: Vital Signs Temp 98.5 F 08/08/20 14:33 Pulse 81 08/08/20 14:33 Resp 16 08/08/20 14:33 BP 141/70 08/08/20 14:33 Pulse Ox Intake & Output 08/07/20 08/08/20 08/08/20 18:59 06:59 18:59 Weight 108.409 kg
== END | disposition home or self-care (01) ==
LOC: BARWHC3 13:54
PROVIDERS: ATTEND Surgery Plastic and Reconstructive Surgery
DX: E66.01 Morbid (severe) obesity due to excess calories (principal); G47.33 Obstructive sleep apnea (adult) (pediatric); J30.2 Other seasonal allergic rhinitis; M16.0 Bilateral primary osteoarthritis of hip; I11.9 Hypertensive heart disease without heart failure; K21.9 Gastro-esophageal reflux disease without esophagitis; F41.9 Anxiety disorder, unspecified; F32.9 Major depressive disorder, single episode, unspecified; E78.5 Hyperlipidemia, unspecified; J45.909 Unspecified asthma, uncomplicated; G25.81 Restless legs syndrome; K44.9 Diaphragmatic hernia without obstruction or gangrene; E61.1 Iron deficiency; Z68.41 Body mass index [BMI] 40.0-44.9, adult; Z83.49 Family history of other endocrine, nutritional and metabolic diseases
CPT/HCPCS: 99211

== ENCOUNTER → 2020-08-27 | Outpatient (CLI) | payer OTHER ==
[2020-08-27 11:44] VITALS: BMI 41.0
== END | disposition home or self-care (01) ==
LOC: BARWHC3 08:41
PROVIDERS: ATTEND Surgery Plastic and Reconstructive Surgery
DX: E66.01 Morbid (severe) obesity due to excess calories (principal); Z71.3 Dietary counseling and surveillance; Z68.41 Body mass index [BMI] 40.0-44.9, adult
CPT/HCPCS: 97804

== ENCOUNTER → 2020-10-01 | Outpatient (CLI) | payer OTHER ==
--- NOTE | 2020-10-04 09:48 | MM ---
Reason for exam: screening (asymptomatic). Last mammogram was performed 7 years and 7 months ago. History: Patient is postmenopausal. Took hormonal contraceptives for 4 years beginning at age 15. Taking estrogen beginning at age 47. Physical Findings: A clinical breast exam by your physician is recommended on an annual basis and results should be correlated with mammographic findings. MG Screening Mammo w CAD Bilateral CC and MLO view(s) were taken. Prior study comparison: March 08, 2013, CAD bilateral diagnostic mammogram. September 10, 2010, bilateral digital screening mammogram. Focal asymmetry right breast. No significant changes when compared with prior studies. ASSESSMENT: Benign, BI-RAD 2 RECOMMENDATION: Routine screening mammogram of both breasts in 1 year.
== END | disposition home or self-care (01) ==
LOC: RADMAMWWP 15:05
PROVIDERS: ATTEND Obstetrics & Gynecology
DX: Z12.31 Encounter for screening mammogram for malignant neoplasm of breast (principal)
CPT/HCPCS: 77067

== ENCOUNTER → 2020-10-31 | Outpatient (CLI) | payer OTHER ==
[2020-10-31 13:51] VITALS: BP 135/83; PULSE 71; RESP 18; TEMP 98.9; BMI 39.4
--- NOTE | 2020-10-31 14:29 | P.PN ---
Subjective Progress Note Date: 10/31/20 DATE OF SERVICE: 10/31/2020 CHIEF COMPLAINT: Morbid obesity HISTORY OF PRESENT ILLNESS: Spencer Juares is a 50-year-old female with lifelong morbid obesity. As a result of her morbid obesity, she has developed obstructive sleep apnea, osteoarthritis, and hypertensive heart disease. She comes in for the sleeve gastrectomy. She denies gastroesophageal reflux disease. She has completed medical supervised weight loss. She is looking into surgical options for weight loss. At her height of 5 foot 4.25 inches, her ideal body weight is 144 pounds. Her highest weight is 241 pounds, BMI 41.1. She comes in 230 pounds from 239 pounds, 3 months ago. She lost 9 pounds in 3 months. Body mass index is 39.5. She is 86 pounds overweight. PAST MEDICAL HISTORY: 1. Morbid obesity due to excess calories 2. Body mass index 41.2 3. Seasonal ALLERGIES. 4. Obstructive sleep apnea. 5. Osteoarthritis of the hips 6. Hypertensive heart disease. 7. Gastroesophageal reflux disease 8. Anxiety. 9. Depression. 10. Hyperlipidemia. 11. Degenerative joint disease. 12. Asthma. 13. Restless leg syndrome. 14. Osteoarthritis of the knees. PAST SURGICAL HISTORY: 1. Tubal Ligation 2. Uterine ablation. 3. Orthopedic procedure. 4. Upper endoscopy. 5. Cholecystectomy HOME MEDICATIONS: Home Medications Medication Instructions Recorded Confirmed Loratadine [Claritin] 10 mg PO DAILY 11/05/17 08/27/20 Sertraline [Zoloft] 100 mg PO BID 11/05/17 08/27/20 ALPRAZolam [Xanax] 0.25 mg PO TID PRN 05/29/19 08/27/20 Ergocalciferol (Vitamin D2) 50,000 unit PO MO 05/29/19 08/27/20 [Vitamin D2] Estrogen,Con/M-Progest Acet 1 tab PO DAILY 05/29/19 08/27/20 [Prempro 0.625-2.5 mg Tablet] Gabapentin [Neurontin] 600 mg PO BID 05/29/19 08/27/20 rOPINIRole HCL [Requip] 2 mg PO HS 05/29/19 08/27/20 buPROPion XL [Wellbutrin XL] 300 mg PO QAM 10/28/19 08/27/20 lamoTRIgine [LaMICtal Xr] 100 mg PO BID 10/28/19 08/27/20 Multivitamins, Thera [Multivitamin 1 tab PO DAILY 08/27/20 08/27/20 (formulary)] traMADol HCl [Ultram] 50 mg PO Q6HR PRN 08/27/20 08/27/20 ALLERGIES: Denies. SOCIAL HISTORY: No active tobacco use. FAMILY HISTORY: No family history of ulcerative colitis disease or Crohn's disease. She does have a family history of morbid obesity. She denies any lupus in her family. No reports of stomach or esophageal cancer. REVIEW OF ORGAN SYSTEMS: CONSTITUTIONAL: Her present weight was 241 pounds. At her height of 5 foot 4.25 inches, her ideal body weight is 144 pounds. Her BMI was 41.1 HEENT: Denies any active troubles with hearing or vision. No troubles with swallowing. ENDOCRINE: No diabetes. No hypothyroidism. CARDIOVASCULAR: No reports of palpitations or heart attacks or chest pain. Has hypertension. Has hyperlipidemia. RESPIRATORY: Has daytime somnolence including snoring and sleep apnea. No asthma. Has seasonal ALLERGIES. GI: Denies any bright red blood per rectum or constipation. Does have gastroesophageal reflux disease. MUSCULOSKELETAL: Has lower back pain, left hip and right knee pain. No scoliosis. History of left heel spur. NEURO: Has headaches. No seizure disorders. PSYCH: Has depression without suicidal ideation. Has anxiety. RHEUMATOLOGIC: No lupus. No rheumatoid arthritis. HEMATOLOGIC: Denies any abnormal bleeding or bruising. No personal history of DVTs. SKIN: No rash. No skin cancer. PHYSICAL EXAM: VITAL SIGNS: Height 5 foot 4.25 inches, weight 239 pounds. BMI 41.0 Vital Signs Temp 98.9 F 10/31/20 13:48 Pulse 71 10/31/20 13:48 Resp 18 10/31/20 13:48 BP 135/83 10/31/20 13:48 Pulse Ox GENERAL: Well-developed female in no acute distress. HEENT: No scleral icterus. Extraocular movements grossly intact. Hears conversational speech. No nasal drainage. NECK: Supple without lymphadenopathy. CHEST: Nonlabored respirations with equal bilateral excursions. CARDIOVASCULAR: Regular rate. Distal 2+ pulses. ABDOMEN: Obese, soft, nontender, nondistended. MUSCULOSKELETAL: No clubbing, cyanosis. NEURO: No focal or lateralizing signs. Cranial nerves 2 through 12 grossly within normal limits. PSYCH: Appropriate affect. Alert and oriented to person, place and time. SKIN: Good skin turgor. Well perfused. ASSESSMENT: 1. Morbid obesity due to excess calories 2. Body mass index 41.2 down to 39.5 3. Seasonal ALLERGIES. 4. Obstructive sleep apnea. 5. Osteoarthritis of the hips 6. Hypertensive heart disease. 7. Gastroesophageal reflux disease 8. Anxiety. 9. Depression. 10. Hyperlipidemia. 11. Degenerative joint disease. 12. Asthma. 13. Restless leg syndrome. 14. Family history of morbid obesity. 15. Diaphragmatic hiatal hernia. 16. Iron deficiency. PLAN: 1. Bariatric options between a sleeve, band and a Mike-en-Y gastric bypass were reviewed in detail. The patient elected for a sleeve gastrectomy. Robotic assisted approach described. 2. The [place] [facility] Data was also reviewed with benefits and risks as described. 3. An 8 page second-generation bariatric consent form was reviewed in detail including potential of bleeding, infection, leaks, adequate weight loss, nutritional deficiencies which the patient demonstrated understanding of the risks. 4. A 2 week high-protein low caloric 800 kcal diet described to address hepatomegaly. 5. Preoperative labs including complete metabolic panel and CBC with type and screen recommended. 6. DVT prophylaxis per [place] [facility]. 7. Antibiotic prophylaxis. 8. Inpatient hospitalization anticipated for more than 2 nights. 9. All questions and concerns were addressed with the patient. 10. She is at elevated risk for perioperative complications with her co- morbidites including obstructive sleep apnea. 11. Post-surgical expectations and management reviewed including non-narcotic pain medications. Objective - Vital Signs Vital signs: Vital Signs Temp 98.9 F 10/31/20 13:48 Pulse 71 10/31/20 13:48 Resp 18 10/31/20 13:48 BP 135/83 10/31/20 13:48 Pulse Ox Intake & Output 10/30/20 10/31/20 10/31/20 18:59 06:59 18:59 Weight 104.326 kg
== END | disposition home or self-care (01) ==
LOC: BARWHC3 13:22
PROVIDERS: ATTEND Surgery Plastic and Reconstructive Surgery
DX: E66.01 Morbid (severe) obesity due to excess calories (principal); G47.33 Obstructive sleep apnea (adult) (pediatric); M16.0 Bilateral primary osteoarthritis of hip; I11.9 Hypertensive heart disease without heart failure; K21.9 Gastro-esophageal reflux disease without esophagitis; F32.9 Major depressive disorder, single episode, unspecified; F41.9 Anxiety disorder, unspecified; E78.5 Hyperlipidemia, unspecified; J45.909 Unspecified asthma, uncomplicated; G25.81 Restless legs syndrome; K44.9 Diaphragmatic hernia without obstruction or gangrene; Z83.49 Family history of other endocrine, nutritional and metabolic diseases; Z68.41 Body mass index [BMI] 40.0-44.9, adult; Z79.1 Long term (current) use of non-steroidal anti-inflammatories (NSAID); Z79.899 Other long term (current) drug therapy; Z79.818 Long term (current) use of other agents affecting estrogen receptors and estrogen levels; Z90.49 Acquired absence of other specified parts of digestive tract; Z98.51 Tubal ligation status
CPT/HCPCS: 99211

== ENCOUNTER → 2020-11-05 | Outpatient (CLI) | payer OTHER ==
[2020-11-05 13:45] LABS: Basophils % (A) 0 %; Eosinophils # (A) 0.2 k/uL (0-0.7); Eosinophils % (A) 4 %; HCT 44.2 % (34.0-46.0); Lymphocytes # (A) 1.6 k/uL (1.0-4.8); Lymphocytes % (A) 29 %; MCH 30.4 pg (25.0-35.0); MCHC 33.9 g/dL (31.0-37.0); MCV 89.6 fL (80.0-100.0); Mean Platelet Volume 7.7; Monocytes # (A) 0.3 k/uL (0-1.0); Monocytes % (A) 6 %; Neutrophils # (A) 3.2 k/uL (1.3-7.7); Neutrophils % (A) 59 %; Platelet Count 248 k/uL (150-450); RBC 4.93 m/uL (3.80-5.40); RDW 11.6 % (11.5-15.5); WBC 5.5 k/uL (3.8-10.6)
[2020-11-05 14:05] LABS: Albumin 4.4 g/dL (3.5-5.0); Calcium 9.8 mg/dL (8.4-10.2); Potassium 4.6 mmol/L (3.5-5.1); Total Bilirubin 0.5 mg/dL (0.2-1.3); Total Protein 7.3 g/dL (6.3-8.2)
[2020-11-05 21:50] LABS: Hemoglobin A1C 4.7 % (4.0-6.0)
== END | disposition home or self-care (01) ==
LOC: LABPAT 11:24
PROVIDERS: ATTEND Surgery Plastic and Reconstructive Surgery
DX: Z01.818 Encounter for other preprocedural examination (principal)
CPT/HCPCS: 36415; 80053; 83036; 85025

== ENCOUNTER 2020-11-12 09:32 | Inpatient (IN) | payer OTHER ==
--- NOTE | 2020-11-12 05:11 | P.GSHP ---
History of Present Illness H&P Date: 11/12/20 CHIEF COMPLAINT: Morbid obesity HISTORY OF PRESENT ILLNESS: Spencer Juares is a 50-year-old female with lifelong morbid obesity. As a result of her morbid obesity, she has developed obstructive sleep apnea, osteoarthritis, and hypertensive heart disease. She comes in for the sleeve gastrectomy. At her height of 5 foot 4.25 inches, her ideal body weight is 144 pounds. Her highest weight is 241 pounds, BMI 41.1. She comes in 230 pounds from 239 pounds, 3 months ago. She lost 9 pounds in 3 months. Body mass index is 39.5. She is 86 pounds overweight. PAST MEDICAL HISTORY: 1. Morbid obesity due to excess calories 2. Body mass index 41.2 3. Seasonal ALLERGIES. 4. Obstructive sleep apnea. 5. Osteoarthritis of the hips 6. Hypertensive heart disease. 7. Gastroesophageal reflux disease 8. Anxiety. 9. Depression. 10. Hyperlipidemia. 11. Degenerative joint disease. 12. Asthma. 13. Restless leg syndrome. 14. Osteoarthritis of the knees. PAST SURGICAL HISTORY: 1. Tubal Ligation 2. Uterine ablation. 3. Orthopedic procedure. 4. Upper endoscopy. 5. Cholecystectomy HOME MEDICATIONS: ALLERGIES: Denies. SOCIAL HISTORY: No active tobacco use. FAMILY HISTORY: No family history of ulcerative colitis disease or Crohn's disease. She does have a family history of morbid obesity. She denies any lupus in her family. No reports of stomach or esophageal cancer. REVIEW OF ORGAN SYSTEMS: CONSTITUTIONAL: Her present weight was 241 pounds. At her height of 5 foot 4.25 inches, her ideal body weight is 144 pounds. Her BMI was 41.1 HEENT: Denies any active troubles with hearing or vision. No troubles with swallowing. ENDOCRINE: No diabetes. No hypothyroidism. CARDIOVASCULAR: No reports of palpitations or heart attacks or chest pain. Has hypertension. Has hyperlipidemia. RESPIRATORY: Has daytime somnolence including snoring and sleep apnea. No asthma. Has seasonal ALLERGIES. GI: Denies any bright red blood per rectum or constipation. Does have gastroesophageal reflux disease. MUSCULOSKELETAL: Has lower back pain, left hip and right knee pain. No scoliosi s. History of left heel spur. NEURO: Has headaches. No seizure disorders. PSYCH: Has depression without suicidal ideation. Has anxiety. RHEUMATOLOGIC: No lupus. No rheumatoid arthritis. HEMATOLOGIC: Denies any abnormal bleeding or bruising. No personal history of DVTs. SKIN: No rash. No skin cancer. PHYSICAL EXAM: VITAL SIGNS: Height 5 foot 4.25 inches, weight 239 pounds. BMI 41.0 GENERAL: Well-developed female in no acute distress. HEENT: No scleral icterus. Extraocular movements grossly intact. Hears conversational speech. No nasal drainage. NECK: Supple without lymphadenopathy. CHEST: Nonlabored respirations with equal bilateral excursions. CARDIOVASCULAR: Regular rate. Distal 2+ pulses. ABDOMEN: Obese, soft, nontender, nondistended. MUSCULOSKELETAL: No clubbing, cyanosis. NEURO: No focal or lateralizing signs. Cranial nerves 2 through 12 grossly within normal limits. PSYCH: Appropriate affect. Alert and oriented to person, place and time. SKIN: Good skin turgor. Well perfused. ASSESSMENT: 1. Morbid obesity due to excess calories 2. Body mass index 41.2 down to 39.5 3. Seasonal ALLERGIES. 4. Obstructive sleep apnea. 5. Osteoarthritis of the hips 6. Hypertensive heart disease. 7. Gastroesophageal reflux disease 8. Anxiety. 9. Depression. 10. Hyperlipidemia. 11. Degenerative joint disease. 12. Asthma. 13. Restless leg syndrome. 14. Family history of morbid obesity. 15. Diaphragmatic hiatal hernia. 16. Iron deficiency. PLAN: 1. Bariatric options between a sleeve, band and a Mike-en-Y gastric bypass were reviewed in detail. The patient elected for a sleeve gastrectomy. Robotic assisted approach described. 2. DVT prophylaxis per [place] [facility]. 3. Antibiotic prophylaxis. 4. Inpatient hospitalization anticipated for more than 2 nights. 5. All questions and concerns were addressed with the patient. 6. She is at elevated risk for perioperative complications with her co- morbidites including obstructive sleep apnea. Past Medical History Past Medical History: GERD/Reflux, Osteoarthritis (OA) Additional Past Medical History / Comment(s): neuropathy left leg, occ loose stools, diverticulitis, History of Any Multi-Drug Resistant Organisms: None Reported Past Surgical History: Cholecystectomy, Hernia Repair, Orthopedic Surgery, Tubal Ligation, Uterine Ablation Additional Past Surgical History / Comment(s): HANS KNEE arthroscopy, hiatal hernia sx, cyst groin area removed Past Anesthesia/Blood Transfusion Reactions: Previous Problems w/ Anesthesia, Motion Sickness Additional Past Anesthesia/Blood Transfusion Reaction / Comment(s): Anesthesia for lesion on cyst in groin area.issue with "feet curled under, high bp and shaking". [facility] but is unable to read name, anesthesia record on chart, Never had a problem with anesthesia from [facility] since this incident Smoking Status: Never smoker - Past Family History Mother Family Medical History: Cancer Father Family Medical History: Cancer Brother(s) Family Medical History: Cancer Medications and Allergies Home Medications Medication Instructions Recorded Confirmed Type Sertraline [Zoloft] 100 mg PO BID 11/05/17 11/07/20 History ALPRAZolam [Xanax] 0.25 mg PO TID PRN 05/29/19 11/07/20 History Ergocalciferol (Vitamin D2) 50,000 unit PO MO 05/29/19 11/07/20 History [Vitamin D2] Estrogen,Con/M-Progest Acet 1 tab PO DAILY 05/29/19 11/07/20 History [Prempro 0.625-2.5 mg Tablet] Gabapentin [Neurontin] 600 mg PO BID 05/29/19 11/07/20 History rOPINIRole HCL [Requip] 2 mg PO HS 05/29/19 11/07/20 History lamoTRIgine [LaMICtal Xr] 100 mg PO BID 10/28/19 11/07/20 History Multivitamins, Thera [Multivitamin 1 tab PO DAILY 08/27/20 11/07/20 History (formulary)] traMADol HCl [Ultram] 50 mg PO Q6HR PRN 08/27/20 11/07/20 History Cetirizine HCl [Zyrtec] 10 mg PO HS 11/07/20 11/07/20 History Montelukast Sodium [Singulair] 10 mg PO HS 11/07/20 11/07/20 History buPROPion HCL [Wellbutrin XL] 300 mg PO DAILY 11/07/20 11/07/20 History Allergies Allergy/AdvReac Type Severity Reaction Status Date / Time No Known Allergies Allergy Verified 11/07/20 10:35
[~2020-11-12 09:32] MED LIST changes: +CHLORHEXIDINE GLUCONATE 15 ML CUP MUCOUS MEM PRN; -DEXAMETHASONE SOD PHOSPHATE 10 MG/ML 1 ML VIAL IV ONE; +DEXAMETHASONE SOD PHOSPHATE 4 MG/ML 1 ML VIAL IV ONE; +ENOXAPARIN 40 MG/0.4 ML SYRINGE SQ PRN; -HEPARIN SODIUM,PORCINE 5,000 UNIT/ML 1 ML VIAL SQ ONE; -HYDROmorphone 0.5 MG/0.5 ML SYRINGE IVP PRN; -INDOCYANINE GREEN 25 MG VIAL IV STA; -LACTATED RINGERS 1,000 ML IV SCH; +MELOXICAM 7.5 MG TAB PO ONE; +PANTOPRAZOLE 40 MG/10 ML VIAL IVP PRN; +SCOPOLAMINE 1.5MG/72HR PATCH TRANSDERM ONE; +SCOPOLAMINE 1.5MG/72HR PATCH TRANSDERM STA
[2020-11-12] MEDS: LACTATED RINGERS 1,000 ML IV SCH (10:04)
[2020-11-12] MEDS ORDERED: MELOXICAM 7.5 MG TAB PO ONE (10:05)
[2020-11-12 10:34] LABS: Basophils # (A) 0.1 k/uL (0-0.2); Basophils % (A) 1 %; Eosinophils # (A) 0.3 k/uL (0-0.7); Eosinophils % (A) 5 %; HCT 44.3 % (34.0-46.0); HGB 15.1 gm/dL (11.4-16.0); Lymphocytes # (A) 1.5 k/uL (1.0-4.8); Lymphocytes % (A) 25 %; MCH 30.4 pg (25.0-35.0); MCHC 34.1 g/dL (31.0-37.0); MCV 89.4 fL (80.0-100.0); Mean Platelet Volume 7.9; Monocytes # (A) 0.3 k/uL (0-1.0); Monocytes % (A) 6 %; Neutrophils # (A) 3.6 k/uL (1.3-7.7); Neutrophils % (A) 62 %; Platelet Count 266 k/uL (150-450); RBC 4.96 m/uL (3.80-5.40); RDW 11.7 % (11.5-15.5); WBC 5.8 k/uL (3.8-10.6)
[2020-11-12 10:42] LABS: Albumin 4.3 g/dL (3.5-5.0); Calcium 9.8 mg/dL (8.4-10.2); Potassium 4.4 mmol/L (3.5-5.1); Total Bilirubin 0.7 mg/dL (0.2-1.3); Total Protein 7.3 g/dL (6.3-8.2)
[2020-11-12] MEDS ORDERED: PROPOFOL 10 MG/ML 20 ML VIAL IV ONE (10:42)
[2020-11-12] MEDS ORDERED: SUCCINYLCHOLINE CHLORIDE 100 MG/5 ML SYR IV ONE (10:42)
[2020-11-12] MEDS ORDERED: ROCURONIUM 10 MG/ML (5 ML VIAL) IV ONE (10:42)
[2020-11-12] MEDS ORDERED: GLYCOPYRROLATE 0.2 MG/ML 2 ML VIAL ONE (10:42)
[2020-11-12] MEDS ORDERED: LIDOCAINE 1% INJ 10MG/ML (20 ML MDV) ONE (10:42)
[2020-11-12] MEDS ORDERED: HYDROmorphone (PF) 1 MG/ML ONE (10:42)
[2020-11-12] MEDS ORDERED: NEOSTIGMINE 1 MG/ML 10 ML VIAL ONE (10:42)
[2020-11-12] MEDS ORDERED: fentaNYL (PF) 50 MCG/ML 2 ML AMP ONE (10:42)
[2020-11-12] MEDS ORDERED: LIDOCAINE 1%-EPI 1:100,000 20 ML VIAL SQ ONE (11:11)
--- NOTE | 2020-11-12 12:36 | P.OP ---
Date of Procedure: 11/12/20 Description of Procedure: SURGEON: JULIAN NEWMAN MD PREOPERATIVE DIAGNOSES: 1. Morbid obesity due to excess calories 2. Body mass index of 41.5, initial 3. Osteoarthritis of the ankle. 4. Osteoarthritis of the lower back. 5. Depressive disorder 6. Gastroesophageal reflux disease 7. Past deep venous thrombosis of the arm 8. Transient ischemic attack 9. Generalized anxiety disorder 10. Depressive disorder POSTOPERATIVE DIAGNOSES: 1. Morbid obesity due to excess calories 2. Body mass index of 41.5, initial 3. Osteoarthritis of the ankle. 4. Osteoarthritis of the lower back. 5. Depressive disorder 6. Gastroesophageal reflux disease 7. Past deep venous thrombosis of the arm 8. Transient ischemic attack 9. Generalized anxiety disorder 10. Depressive disorder 11. Peritoneal adhesions, perigastric OPERATION: 1. Robotic assisted daVinci Xi laparoscopic sleeve gastrectomy with 40-[place] Citizen bougie, multiport. 2. Robotic assisted daVinci Xi laparoscopic lysis of adhesions 3. Intraoperative esophagogastroduodenoscopy. ANESTHESIA: Gen. local anesthetic ESTIMATED BLOOD LOSS: 5 mL SPECIMENS REMOVED: Sleeve gastrectomy COMPLICATIONS: None. FINDINGS: 1. Negative intraoperative esophagogastrojejunoscopy leak test. 2. No hepatomegaly and no large hiatus hernia. 3. Total of 6 staplers used including 1 - 60 mm green robot jeannine and 5 - 60 mm blue robot loads used to create the gastric sleeve. 4. Sleeve gastrectomy, 25 x 5 cm 5. Moderate perigastric adhesions along the gastric cardia superior pole of the stomach requiring lysis of adhesions for gastrectomy INDICATIONS: Spencer Juares is a 50-year-old female with lifelong morbid obesity. As a result of her morbid obesity, she has developed obstructive sleep apnea, osteoarthritis, and hypertensive heart disease. She comes in for the sleeve gastrectomy. At her height of 5 foot 4.25 inches, her ideal body weight is 144 pounds. Her highest was weight is 241 pounds, BMI 41.1. She comes in 221 pounds. All surgical options for morbid obesity had been described using the [place] bariatric surgery collaborative comorbidity resolution including complication risk score. A second-generation bariatric consent form was described in detail including the possibility of protein malnutrition, leaks, gastric stricture, venous thrombosis, gastroesophageal reflux disease, need for further surgery for which she demonstrated understanding. Benefits and risks of the procedure were described at length. Informed consent was obtained. DESCRIPTION: The patient was brought into the operating room theater. Preoperatively she had received Lovenox subcutaneously for DVT prophylaxis. Additionally she had Peridex oral solution as an oral decontaminant. After general induction, the abdomen was prepped and draped in standard sterile fashion. An Ioban draping was placed along the abdomen. A robotic da Evy Xi system was prepped and primed. At 15 cm from the xiphoid, proposed port sites were marked with indelible marker along the anterior axillary line bilaterally, mid axillary line bilaterally with each ports were marked 10 to 15 cm from each other. The casino assistant manager port was marked along the left lateral abdominal wall. The robotic stapler port was marked for the right midclavicular line. A 5 mm 0 degrees laparoscopic trocar entry was performed along the left upper quadrant. The abdomen was insufflated to 15 mmHg pressure was tolerated well. Diagnostic laparoscopy demonstrated no injury to bowel, viscera, or mesentery. No evidence of large hiatus hernia was identified. The liver edge was sharp consistent with 2 week low-carb high-protein diet. The ports were readjusted at 12 cm from the xiphoid to avoid additional adhesions. Perigastric adhesions along the gastric cardia and superior pole of the stomach were identified consistent previous hiatal hernia surgery. A 8 mm port was placed along the left upper abdominal wall after exchanging the 5 mm port. A separate 8 mm port was placed along the left lateral abdominal wall. Please note that the ports were placed at least 20 cm away from the target anatomy. Care was taken to check each robotic arms were safely away from collision with the bed or the patient. At the epigastrium, a medium sized Rayshawn liver retractor was placed under direct visualization with the [employer] Information [employer] Operator placed under the right shoulder of the patient. Next, 12-mm robot stapler port was placed along the right upper quadrant. The camera 8-mm port was maintained along the epigastrium. The patient was repositioned in reverse Trendelenburg position at 21-degrees after lowering the bed. The robot was docked along the left side of the patient. Using a grasper for arm 4, a vessel sealer for arm 3, including grasper for arm 1, the robotic system was docked and primed as described. Instruments were interchanged by the casino assistant manager for stapler loads. The camera was placed at 30- degrees down. I had sat at the console. Initial attention was brought to the gastric cardia including superior pole of the stomach were adhesions were sharply lysed using vessel sealer including blunt dissection releasing the stomach for gastrectomy. The pylorus was identified and 6 cm proximally along the greater curvature of the stomach, the short gastrics were mobilized upwards to the angle of His using a vessel sealer. Hemostasis was excellent during this portion of the procedure. Next, the upper pole of the stomach was adherent to the left mk, which was gently dissected free using atraumatic grasper. I went to the head of the bed and placed 40-[place] Citizen blunt bougie into the stomach. The bougie was readjusted by the nurse backend developer. Robotic stapler green load 60 mm 1 followed by blue 60 mm x 5 loads were used to create the sleeve. Initial firing was across the antrum of the stomach towards the angle of His. The staple line was linear without corkscrewing. The space from the angularis incisura of the sleeve was approximately 4 cm. I then went to the head of the bed to perform the intraoperative esophagogastroduodenoscopy leak test. The bougie was withdrawn. The upper pole of the stomach was bathed using normal saline solution. The scope was withdrawn with careful inspection along the staple line for which no leaks were found along the entire length. Additionally,the sleeve was completely hemostatic without any encroachment along the angularis incisura. Its topology was a soft "J". No stricture was encountered upon placement of the scope. The GI tract was desufflated. The patient tolerated this portion of the procedure well. The scope was completely withdrawn. The robot was undocked. I then rescrubbed into case, whereby the irrigation fluid was aspirated from the abdominal cavity. Tisseel fibrin sealant was placed along the entire staple length. Once dried the Rayshawn liver retractor was removed. Attention was now brought to removal of the specimen. The distal end of the sleeve gastrectomy specimen was brought out through the 12 mm port at the left upper quadrant. The specimen was gently removed en total. No contamination had occurred during this process. All instruments and pneumoperitoneum including irrigation fluid was removed from the abdominal cavity. The 12 mm port site was closed using 0-Vicryl and Lesterjovanna Aguirreson and irrigated with diluted hydrogen peroxide. The final incisions were closed using subcuticular interrupted suture of 4-0 Monocryl. Exofin was applied to the skin once the skin had been cleansed. OptiFoam dressing was placed along the stomach extraction site. The sleeve specimen was measured and checked also for leaks which none were found. At the end of the procedure, needle, sponge, and instrument count was verified correct by the surgical oncologist. The patient was taken to the postanesthesia care unit in stable condition. She had tolerated the procedure well. Her family was updated via telephone, daughter Rosa Isela.
[2020-11-12] MEDS ORDERED: NALOXONE 0.4 MG/ML 1 ML VIAL IV PRN (12:47)
[2020-11-12] MEDS ORDERED: diphenhydrAMINE 50 MG/ML 1 ML VIAL IVP PRN (12:47)
[2020-11-12] MEDS ORDERED: DEXAMETHASONE SOD PHOSPHATE 10 MG/ML 1 ML VIAL IV PRN (12:49)
[2020-11-12] MEDS ORDERED: traMADol 50 MG TAB PO PRN (12:51)
[2020-11-12] MEDS ORDERED: ONDANSETRON 4 MG/2 ML VIAL IVP ONE (12:57)
[2020-11-12] MEDS: HYDROmorphone 0.5 MG/0.5 ML SYRINGE IVP PRN ×2 (14:07→14:11)
[2020-11-12] MEDS: KETOROLAC 15 MG/ML 1 ML VIAL IVP SCH ×2 (14:10→17:32)
[2020-11-12] MEDS: DEXAMETHASONE SOD PHOSPHATE 4 MG/ML 1 ML VIAL IV SCH (17:32)
[2020-11-12] MEDS: ONDANSETRON 4 MG/2 ML VIAL IVP SCH (17:32)
[2020-11-12] MEDS: ACETAMINOPHEN IV (For NPO) 1,000 MG in EMPTY BAG 1 BAG IVPB SCH ×2 (18:05→23:58)
[2020-11-12] MEDS: SIMETHICONE 40 MG/0.6 ML DROPS 2,000 MG/30 ML BOTTLE PO SCH (18:05)
[2020-11-12] MEDS: 0.9% NACL WITH KCL 20 MEQ/L 1,000 ML IV SCH ×2 (18:05→21:38)
[2020-11-12] MEDS: HYOSCYAMINE ORAL DROPS 1.875 MG/15 ML BOTTLE PO SCH (18:06)
[2020-11-12] MEDS: ALBUTEROL NEBULIZED 2.5 MG/3 ML INHALATION SCH (18:45)
[2020-11-12] MEDS: HYDROmorphone 1 MG/ML 1 ML SYRINGE IVP PRN (19:22)
[2020-11-12] MEDS: GABAPENTIN 300 MG CAP PO SCH (21:33)
[2020-11-12] MEDS: LORATADINE 10 MG TAB PO SCH (21:33)
[2020-11-12] MEDS: lamoTRIgine 100 MG TAB PO SCH (21:34)
[2020-11-12] MEDS: SERTRALINE 100 MG TAB PO SCH (21:34)
[2020-11-12] MEDS: MONTELUKAST 10 MG TAB PO SCH (21:34)
[2020-11-13] MEDS: ONDANSETRON 4 MG/2 ML VIAL IVP SCH ×4 (00:01→18:57)
[2020-11-13] MEDS: DEXAMETHASONE SOD PHOSPHATE 4 MG/ML 1 ML VIAL IV SCH ×4 (00:01→18:57)
[2020-11-13] MEDS: KETOROLAC 15 MG/ML 1 ML VIAL IVP SCH ×4 (00:01→18:57)
[2020-11-13] MEDS: SIMETHICONE 40 MG/0.6 ML DROPS 2,000 MG/30 ML BOTTLE PO SCH ×4 (00:02→18:58)
[2020-11-13] MEDS: HYOSCYAMINE ORAL DROPS 1.875 MG/15 ML BOTTLE PO SCH ×4 (00:02→18:58)
[2020-11-13] MEDS: 0.9% NACL WITH KCL 20 MEQ/L 1,000 ML IV SCH (00:30)
[2020-11-13] MEDS: HYDROmorphone 1 MG/ML 1 ML SYRINGE IVP PRN ×4 (02:21→22:18)
[2020-11-13] MEDS: ACETAMINOPHEN IV (For NPO) 1,000 MG in EMPTY BAG 1 BAG IVPB SCH ×2 (05:32→12:38)
[2020-11-13] MEDS: LACTATED RINGERS 1,000 ML IV SCH (05:34)
[2020-11-13] MEDS: ALBUTEROL NEBULIZED 2.5 MG/3 ML INHALATION SCH ×4 (07:20→20:21)
[2020-11-13] MEDS ORDERED: 0.9% NACL WITH KCL 20 MEQ/L 1,000 ML IV SCH (08:00)
[2020-11-13 08:11] LABS: African American GFR (CKD) >90 (>60 ml/min/1.73 sqM); Anion Gap 6 mmol/L; Blood Urea Nitrogen 9 mg/dL (7-17); Calcium 8.9 mg/dL (8.4-10.2); Carbon Dioxide 24 mmol/L (22-30); Chloride 105 mmol/L (98-107); Magnesium 2.1 mg/dL (1.6-2.3); Non-African American GFR(CKD) >90 (>60 ml/min/1.73 sqM); Potassium 5.2 mmol/L (3.5-5.1); Sodium 135 mmol/L (137-145)
[2020-11-13] MEDS: ENOXAPARIN 40 MG/0.4 ML SYRINGE SQ SCH (08:25)
[2020-11-13] MEDS: lamoTRIgine 100 MG TAB PO SCH ×2 (08:25→20:27)
[2020-11-13] MEDS: PANTOPRAZOLE 40 MG/10 ML VIAL IV SCH (08:25)
[2020-11-13] MEDS: GABAPENTIN 300 MG CAP PO SCH ×2 (08:25→20:27)
[2020-11-13] MEDS: SERTRALINE 100 MG TAB PO SCH ×2 (08:25→20:27)
[2020-11-13] MEDS: buPROPion XL 300 MG TAB.ER.24H PO SCH (08:25)
[2020-11-13] MEDS ORDERED: SODIUM CHLORIDE 0.9% 2,000 ML IV ONE (09:35)
--- NOTE | 2020-11-13 11:22 | FL ---
EXAMINATION TYPE: FL UGI DATE OF EXAM: 11/13/2020 COMPARISON: None HISTORY: Gastric sleeve TECHNIQUE: A single contrast UGI study is performed. FINDINGS: Contrast passes from the distal esophagus through the gastric sleeve with mild hesitancy. N o extravasation of contrast is evident. No significant free air is noted during this examination. Overhead radiographs were obtained which are unremarkable. IMPRESSIONS: 1. Normal post gastric sleeve without obstruction or significant hesitancy. No extravasation.
[2020-11-13 11:54] LABS: Basophils # (A) 0.01 X 10*3/uL (0.00-0.10); Basophils % (A) 0.2 %; Eosinophils # (A) 0 X 10*3/uL (0.04-0.35); Eosinophils % (A) 0 %; HCT 40.1 % (37.2-46.3); Lymphocytes # (A) 0.63 X 10*3/uL (0.90-5.00); Lymphocytes % (A) 9.8 %; MCH 30.3 pg (27.0-32.0); MCHC 32.4 g/dL (32.0-37.0); MCV 93.5 fL (80.0-97.0); Mean Platelet Volume 11.5 fL (9.5-12.2); Monocytes # (A) 0.28 X 10*3/uL (0.20-1.00); Monocytes % (A) 4.4 %; Neutrophils # (A) 5.46 X 10*3/uL (1.80-7.70); Neutrophils % (A) 85.3 %; Platelet Count 237 X 10*3/uL (140-440); RBC 4.29 X 10*6/uL (4.10-5.20); RDW 11.7 % (11.5-14.5)
--- NOTE | 2020-11-13 14:32 | P.PN ---
<MarisaAdelita sales - Last Filed: 11/13/20 14:24> Subjective Progress Note Date: 11/13/20 CHIEF COMPLAINT: Morbid obesity HISTORY OF PRESENT ILLNESS: Patient is status post Robotic assisted daVinci Xi laparoscopic sleeve gastrectomy, Robotic assisted daVinci Xi laparoscopic lysis of adhesions and Intraoperative esophagogastroduodenoscopy. Patient reports abdominal pain especially with moving. However, pain is controlled with pain medication. She denies any nausea or vomiting. She is tolerating the bariatric clear liquid diet. Denies any difficulty with swallowing. Patient did report some nausea and no vomiting or dry heaves. Patient denies any difficulty urinating. She denies passing gas or bowel movement. She's afebrile. WBC 6.40 Hgb 13.0 sodium 135 potassium 5.2 magnesium 2.1 Upper GI showing normal post gastric sleeve without obstruction or significant hesitancy. No extravasation. PHYSICAL EXAM: VITAL SIGNS: Reviewed. GENERAL: Well-developed in no acute distress. HEENT: No sclera icterus. Extraocular movements grossly intact. Moist buccal mucosa. Head is atraumatic, normocephalic. ABDOMEN: Soft. Nondistended. Incision sites clean dry and intact. Abdominal binder adjusted. NEUROLOGIC: Alert and oriented. Cranial nerves II through XII grossly intact. ASSESSMENT: 1. Morbid obesity due to excess calories status post Robotic assisted daVinci Xi laparoscopic sleeve gastrectomy, Robotic assisted daVinci Xi laparoscopic lysis of adhesions and Intraoperative esophagogastroduodenoscopy 2. Body mass index of 41.5, initial 3. Osteoarthritis of the ankle. 4. Osteoarthritis of the lower back. 5. Depressive disorder 6. Gastroesophageal reflux disease 7. Past deep venous thrombosis of the arm 8. Transient ischemic attack 9. Generalized anxiety disorder 10. Depressive disorder 11. Peritoneal adhesions, perigastric 12. Hyperkalemia PLAN: -Patient given IV fluid bolus this morning -Fluids with potassium discontinued -Continue bariatric clear liquid diet -Continue pain medication as needed -Continue medication as needed for nausea -Encouraged patient to use incentive spirometer -Encourage patient to ambulate -Physical therapy and occupational therapy on consult -DVT prophylaxis Lovenox Physician Airdox Fitter note has been reviewed by physician. Signing provider agrees with the documented findings, assessment, and plan of care. Objective - Vital Signs Vital signs: Vital Signs Temp 97.8 F 11/13/20 14:00 Pulse 73 11/13/20 14:00 Resp 18 11/13/20 14:00 BP 119/70 11/13/20 14:00 Pulse Ox 95 11/13/20 14:00 Intake & Output 11/12/20 11/13/20 11/13/20 18:59 06:59 18:59 Intake Total 1525 550 Output Total 5 Balance 1520 550 Weight 100.3 kg Intake: IV 1525 Oral 550 Output: Estimated Blood Loss 5 Other: Voiding Method Toilet Toilet # Voids 1 2 - Labs CBC & Chem 7: 11/13/20 07:01 11/13/20 07:01 Labs: Abnormal Lab Results - Last 24 Hours (Table) 11/13/20 11/13/20 Range/Units 07:01 07:01 Lymphocytes # 0.63 L (0.90-5.00) X 10*3/uL Eosinophils # 0 L (0.04-0.35) X 10*3/uL Sodium 135 L (137-145) mmol/L Potassium 5.2 H (3.5-5.1) mmol/L <Renetta Bower N - Last Filed: 11/13/20 17:36> Subjective Patient seen and evaluated. Esophagram reviewed. No obstruction. Pain is improving. Potassium elevated. Supplemental potassium discontinued. Will e valuate for discharge tomorrow. Follow-up in the bariatric center in 3 days. Objective - Vital Signs Vital signs: Vital Signs Temp 97.8 F 11/13/20 14:00 Pulse 73 11/13/20 14:00 Resp 18 11/13/20 14:00 BP 119/70 11/13/20 14:00 Pulse Ox 95 11/13/20 14:00 Intake & Output 11/12/20 11/13/20 11/13/20 18:59 06:59 18:59 Intake Total 1525 550 Output Total 5 Balance 1520 550 Weight 100.3 kg Intake: IV 1525 Oral 550 Output: Estimated Blood Loss 5 Other: Voiding Method Toilet Toilet # Voids 1 2 - Labs CBC & Chem 7: 11/13/20 07:01 11/13/20 07:01 Labs: Abnormal Lab Results - Last 24 Hours (Table) 11/13/20 11/13/20 Range/Units 07:01 07:01 Lymphocytes # 0.63 L (0.90-5.00) X 10*3/uL Eosinophils # 0 L (0.04-0.35) X 10*3/uL Sodium 135 L (137-145) mmol/L Potassium 5.2 H (3.5-5.1) mmol/L
[2020-11-13] MEDS: ALPRAZolam 0.25 MG TAB PO PRN ×2 (16:09→22:18)
[2020-11-13] MEDS: ACETAMINOPHEN TAB 500 MG TAB PO SCH (18:57)
[2020-11-13] MEDS: MONTELUKAST 10 MG TAB PO SCH (20:27)
[2020-11-13] MEDS: LORATADINE 10 MG TAB PO SCH (20:27)
[2020-11-14] MEDS: HYOSCYAMINE ORAL DROPS 1.875 MG/15 ML BOTTLE PO SCH ×3 (00:38→12:03)
[2020-11-14] MEDS: SIMETHICONE 40 MG/0.6 ML DROPS 2,000 MG/30 ML BOTTLE PO SCH ×3 (00:38→12:03)
[2020-11-14] MEDS: KETOROLAC 15 MG/ML 1 ML VIAL IVP SCH ×3 (00:39→12:01)
[2020-11-14] MEDS: ACETAMINOPHEN TAB 500 MG TAB PO SCH ×3 (00:39→12:02)
[2020-11-14] MEDS: DEXAMETHASONE SOD PHOSPHATE 4 MG/ML 1 ML VIAL IV SCH ×3 (00:40→12:02)
[2020-11-14] MEDS: ONDANSETRON 4 MG/2 ML VIAL IVP SCH ×3 (00:41→12:02)
[2020-11-14] MEDS: LACTATED RINGERS 1,000 ML IV SCH (05:06)
[2020-11-14] MEDS: HYDROmorphone 1 MG/ML 1 ML SYRINGE IVP PRN (05:23)
[2020-11-14] MEDS: ALBUTEROL NEBULIZED 2.5 MG/3 ML INHALATION SCH ×2 (07:16→11:26)
[2020-11-14 07:59] VITALS: RESP 16; TEMP 97.9
[2020-11-14] MEDS ORDERED: bisacodyL 5 MG TABLET.DR PO PRN (08:00)
[2020-11-14] MEDS: buPROPion XL 300 MG TAB.ER.24H PO SCH (08:18)
[2020-11-14] MEDS: ENOXAPARIN 40 MG/0.4 ML SYRINGE SQ SCH (08:18)
[2020-11-14] MEDS: PANTOPRAZOLE 40 MG/10 ML VIAL IV SCH (08:18)
[2020-11-14] MEDS: SERTRALINE 100 MG TAB PO SCH (08:19)
[2020-11-14] MEDS: lamoTRIgine 100 MG TAB PO SCH (08:19)
[2020-11-14] MEDS: GABAPENTIN 300 MG CAP PO SCH (08:19)
[2020-11-14] MEDS: ALPRAZolam 0.25 MG TAB PO PRN (09:01)
[2020-11-14 09:39] LABS: African American GFR (CKD) 116.3 (60.0-200.0); Anion Gap 4.6 mmol/L (4.00-12.00); BUN/Creat Ratio 8.57 Ratio (12.00-20.00); Calcium 8.9 mg/dL (8.7-10.3); Carbon Dioxide 27.4 mmol/L (21.6-31.8); Non-African American GFR(CKD) 100.3 (60.0-200.0); Potassium 4.5 mmol/L (3.5-5.5)
[2020-11-14 10:41] VITALS: BMI 37.9
[2020-11-14 14:03] VITALS: BP 152/81; PULSE 63
--- NOTE | 2020-11-14 14:51 | P.DS ---
<Adelita Zamorano - Last Filed: 11/14/20 14:48> Providers Expected date of discharge: 11/14/20 Hospital Course: Discharge diagnosis 1. Morbid obesity due to excess calories status post Robotic assisted daVinci Xi laparoscopic sleeve gastrectomy, Robotic assisted daVinci Xi laparoscopic lysis of adhesions and Intraoperative esophagogastroduodenoscopy 2. Body mass index of 41.5, initial 3. Osteoarthritis of the ankle. 4. Osteoarthritis of the lower back. 5. Depressive disorder 6. Gastroesophageal reflux disease 7. Past deep venous thrombosis of the arm 8. Transient ischemic attack 9. Generalized anxiety disorder 10. Depressive disorder 11. Peritoneal adhesions, perigastric 12. Hyperkalemia Hospital course Spencer Juares is a 50-year-old female with lifelong morbid obesity. As a result of her morbid obesity, she has developed obstructive sleep apnea, osteoarthritis, and hypertensive heart disease. Patient is status post Robotic assisted daVinci Xi laparoscopic sleeve gastrectomy, Robotic assisted daVinci Xi laparoscopic lysis of adhesions and Intraoperative esophagogastroduodenoscopy. Patient tolerated surgery well. Her pain is controlled. Upper GI shows normal post gastric sleeve without obstruction or significant hesitancy. No extravasation. She is tolerating bariatric clear liquid diet. She is passing gas. She is ambulating without difficulty. She's afebrile. Patient is stable for discharge. Physician Police Matron note has been reviewed by physician. Signing provider agrees with the documented findings, assessment, and plan of care. Patient Condition at Discharge: Good Plan - Discharge Summary Discharge Rx Participant: Yes New Discharge Prescriptions: New bisacodyL [Dulcolax] 5 mg PO DAILY PRN #10 tablet. PRN Reason: Constipation Simethicone 40 mg/0.6 ml Drops [Mylicon Drops] 40 mg PO PCHS PRN #30 ml PRN Reason: Gas Omeprazole [PriLOSEC] 40 mg PO DAILY #30 capsule. Ondansetron Odt [Zofran Odt] 4 mg PO Q8HR PRN #9 tab PRN Reason: Nausea Acetaminophen Tab [Tylenol Tab] 1,000 mg PO Q6HR PRN #30 tablet PRN Reason: Pain Continue Sertraline [Zoloft] 100 mg PO BID ALPRAZolam [Xanax] 0.25 mg PO TID PRN PRN Reason: Anxiety Estrogen,Con/M-Progest Acet [Prempro 0.625-2.5 mg Tablet] 1 tab PO DAILY Gabapentin [Neurontin] 600 mg PO BID rOPINIRole HCL [Requip] 2 mg PO HS traMADol HCl [Ultram] 50 mg PO Q6HR PRN PRN Reason: Pain Montelukast Sodium [Singulair] 10 mg PO HS Cetirizine HCl [Zyrtec] 10 mg PO HS buPROPion HCL [Wellbutrin XL] 300 mg PO DAILY lamoTRIgine [LaMICtal] 100 mg PO BID Discontinued Ergocalciferol (Vitamin D2) [Vitamin D2] 50,000 unit PO MO Multivitamins, Thera [Multivitamin (formulary)] 1 tab PO DAILY Discharge Medication List Sertraline [Zoloft] 100 mg PO BID 11/05/17 [History] ALPRAZolam [Xanax] 0.25 mg PO TID PRN 05/29/19 [History] Estrogen,Con/M-Progest Acet [Prempro 0.625-2.5 mg Tablet] 1 tab PO DAILY 05/29/19 [History] Gabapentin [Neurontin] 600 mg PO BID 05/29/19 [History] rOPINIRole HCL [Requip] 2 mg PO HS 05/29/19 [History] traMADol HCl [Ultram] 50 mg PO Q6HR PRN 08/27/20 [History] Cetirizine HCl [Zyrtec] 10 mg PO HS 11/07/20 [History] Montelukast Sodium [Singulair] 10 mg PO HS 11/07/20 [History] buPROPion HCL [Wellbutrin XL] 300 mg PO DAILY 11/07/20 [History] lamoTRIgine [LaMICtal] 100 mg PO BID 11/12/20 [History] Acetaminophen Tab [Tylenol Tab] 1,000 mg PO Q6HR PRN #30 tablet 11/13/20 [Rx] Omeprazole [PriLOSEC] 40 mg PO DAILY #30 capsule. 11/13/20 [Rx] Ondansetron Odt [Zofran Odt] 4 mg PO Q8HR PRN #9 tab 11/13/20 [Rx] Simethicone 40 mg/0.6 ml Drops [Mylicon Drops] 40 mg PO PCHS PRN #30 ml 11/13/20 [Rx] bisacodyL [Dulcolax] 5 mg PO DAILY PRN #10 tablet. 11/13/20 [Rx] [facility] [place] [facility]16/20 10:00 am Patient Instructions/Handouts: *Surgery [facility] - (Anesthesia) Discharge Instructions Outpatient Surgery, *Surgery [facility] - Scopalamine Patch Instructions, How to Use an Incentive Spirometer (DC), Nutrition after Bariatric Surgery (DC), Laparoscopic Sleeve Gastrectomy (DC) Activity/Diet/Wound Care/Special Instructions: Continue to use incentive spirometry to prevent pneumonias. Please continue to ambulate at home to prevent blood clots in legs. Please notify your surgeon if you develop nausea and vomiting including new onset of abdominal pain. No lifting over 4 pounds in 4 weeks, December 10 Follow-up at the bariatric center. May shower. No soaking in bath tubs for 2 weeks until, until November 26 Drink 64 oz of fluid daily. Start protein shakes on . Notify bariatric center for temp over 101.0, increased pain, drainage from incisions. No straws or carbonated beverages. Liquid diet only. Sugar content should be less than 6 g to avoid dumping syndrome. Take MOM for constipation. CRUSH, OPEN, OR CUT TABLETS LARGER THAN A SIZE OF A TIC TAC Discharge Disposition: HOME SELF-CARE <Renetta Bower - Last Filed: 11/14/20 19:23> Providers Date of admission: 11/12/20 09:32 Attending physician: Renetta Bower Primary care physician: Rachel Ledesma - Discharge Diagnosis(es) (1) BMI 40.0-44.9, adult Status: Acute (2) History of repair of hiatal hernia Status: Acute (3) Morbid obesity due to excess calories Status: Acute (4) Osteoarthritis of lower back Status: Acute (5) Peritoneal adhesions Status: Acute Hospital Course: Please see additional documentation below POSTOPERATIVE DIAGNOSES: 1. Morbid obesity due to excess calories 2. Body mass index of 41.5, initial 3. Osteoarthritis of the ankle. 4. Osteoarthritis of the lower back. 5. Depressive disorder 6. Gastroesophageal reflux disease 7. Past deep venous thrombosis of the arm 8. Transient ischemic attack 9. Generalized anxiety disorder 10. Depressive disorder 11. Peritoneal adhesions, perigastric COURSE: Patient is status post sleeve gastrectomy for morbid obesity including multiple comorbidities. Following her procedure, she was tolerating diet and passing flatus. Medical reconciliation is performed including expected bariatric discharge instructions. Patient verbalized understanding prior to discharge. Procedures: OPERATION: 1. Robotic assisted daVinci Xi laparoscopic sleeve gastrectomy with 40-[place] Islander bougie, multiport. 2. Robotic assisted daVinci Xi laparoscopic lysis of adhesions 3. Intraoperative esophagogastroduodenoscopy. ANESTHESIA: Gen. local anesthetic ESTIMATED BLOOD LOSS: 5 mL SPECIMENS REMOVED: Sleeve gastrectomy COMPLICATIONS: None. FINDINGS: 1. Negative intraoperative esophagogastrojejunoscopy leak test. 2. No hepatomegaly and no large hiatus hernia. 3. Total of 6 staplers used including 1 - 60 mm green robot jeannine and 5 - 60 mm blue robot loads used to create the gastric sleeve. 4. Sleeve gastrectomy, 25 x 5 cm 5. Moderate perigastric adhesions along the gastric cardia superior pole of the stomach requiring lysis of adhesions for gastrectomy
== END 2020-11-14 14:59 | disposition home or self-care (01) | DRG 621 ==
LOC: 2ORMAIN 09:32 → 4SSUR 16:18
PROVIDERS: ADMIT Surgery Plastic and Reconstructive Surgery; ATTEND Surgery Plastic and Reconstructive Surgery
PROC: 0DB64Z3 Excision of Stomach, Percutaneous Endoscopic Approach, Vertical (ICD-10-PCS; principal; 2020-11-12 10:55)
PROC: 0DNW4ZZ Release Peritoneum, Percutaneous Endoscopic Approach (ICD-10-PCS; principal; 2020-11-12 10:55)
PROC: 0DJ08ZZ Inspection of Upper Intestinal Tract, Via Natural or Artificial Opening Endoscopic (ICD-10-PCS; principal; 2020-11-12 10:55)
PROC: 8E0W4CZ Robotic Assisted Procedure of Trunk Region, Percutaneous Endoscopic Approach (ICD-10-PCS; principal; 2020-11-12 10:55)
DX: E66.01 Morbid (severe) obesity due to excess calories (principal); E78.5 Hyperlipidemia, unspecified; E87.5 Hyperkalemia; F32.9 Major depressive disorder, single episode, unspecified; E61.1 Iron deficiency; F41.1 Generalized anxiety disorder; G25.81 Restless legs syndrome; G47.33 Obstructive sleep apnea (adult) (pediatric); I11.9 Hypertensive heart disease without heart failure; J45.909 Unspecified asthma, uncomplicated; K21.9 Gastro-esophageal reflux disease without esophagitis; K44.9 Diaphragmatic hernia without obstruction or gangrene; K66.0 Peritoneal adhesions (postprocedural) (postinfection); M16.0 Bilateral primary osteoarthritis of hip; M17.0 Bilateral primary osteoarthritis of knee; M19.079 Primary osteoarthritis, unspecified ankle and foot; M47.9 Spondylosis, unspecified; Z68.41 Body mass index [BMI] 40.0-44.9, adult; Z86.718 Personal history of other venous thrombosis and embolism; Z79.899 Other long term (current) drug therapy; Z86.73 Personal history of transient ischemic attack (TIA), and cerebral infarction without residual deficits
CPT/HCPCS: 74240; 80048; 80051; 80053; 81025; 82310; 82565; 83735; 84100; 84520; 85025; 86850; 86900; 86901; 88307; 94640; 94760; 94762

== ENCOUNTER → 2020-11-16 | Outpatient (CLI) | payer OTHER ==
[2020-11-16 09:09] VITALS: BP 133/85; PULSE 67; TEMP 98.2; BMI 38.4
--- NOTE | 2020-11-16 09:39 | P.PN ---
Subjective Progress Note Date: 11/16/20 DATE OF SERVICE: 11/16/2020 CHIEF COMPLAINT: Status post sleeve gastrectomy HISTORY OF PRESENT ILLNESS: Spencer Juares is a 50-year-old status post sleeve gastrectomy, 11/12/2020. She is POD 4. Her pain is well controlled. She denies nausea. She confirms dehydration with intake less than 6 ounces daily. Her urine is dark. She denies gastroesophageal reflux. She is taking her medications including Omeprazole. At her height of 5 foot 4.25 inches, her ideal body weight is 144 pounds. Her highest weight is 241 pounds, BMI 41.1. She comes in 224 pounds from 230 pounds, 2 weeks ago. She lost 6 pounds in 2 weeks. Body mass index is 38.4. She is 80 pounds overweight. PHYSICAL EXAM: VITAL SIGNS: Height 5 foot 4.25 inches, weight 224 pounds. BMI 38.2 Vital Signs Temp 98.2 F 11/16/20 09:05 Pulse 67 11/16/20 09:05 Resp BP 133/85 11/16/20 09:05 Pulse Ox GENERAL: Well-developed female in no acute distress. HEENT: No scleral icterus. Extraocular movements grossly intact. Hears conversational speech. No nasal drainage. NECK: Supple without lymphadenopathy. CHEST: Nonlabored respirations with equal bilateral excursions. CARDIOVASCULAR: Regular rate. Distal 2+ pulses. ABDOMEN: Incisions are clean, dry and intact. Dressing discontinued. No infection. MUSCULOSKELETAL: No clubbing, cyanosis. NEURO: No focal or lateralizing signs. Cranial nerves 2 through 12 grossly within normal limits. PSYCH: Appropriate affect. Alert and oriented to person, place and time. SKIN: Good skin turgor. Well perfused. ASSESSMENT: 1. Morbid obesity due to excess calories 2. Body mass index 41.2 down to 384 3. Seasonal ALLERGIES. 4. Obstructive sleep apnea. 5. Osteoarthritis of the hips 6. Hypertensive heart disease. 7. Gastroesophageal reflux disease, resolved 8. Anxiety. 9. Depression. 10. Hyperlipidemia. 11. Degenerative joint disease. 12. Asthma. 13. Restless leg syndrome. 14. Family history of morbid obesity. 15. Diaphragmatic hiatal hernia. 16. Iron deficiency. 17. Status post sleeve gastrectomy 18. Dehydration PLAN: 1. Recommend IV fluid hydration for dehydration. 2. Follow-up 5 days. 3. All questions addressed. Objective - Vital Signs Vital signs: Vital Signs Temp 98.2 F 11/16/20 09:05 Pulse 67 11/16/20 09:05 Resp BP 133/85 11/16/20 09:05 Pulse Ox Intake & Output 11/15/20 11/16/20 11/16/20 18:59 06:59 18:59 Weight 101.605 kg
== END | disposition home or self-care (01) ==
LOC: BARWHC3 08:46
PROVIDERS: ATTEND Surgery Plastic and Reconstructive Surgery
DX: E66.01 Morbid (severe) obesity due to excess calories (principal); Z68.41 Body mass index [BMI] 40.0-44.9, adult; G47.33 Obstructive sleep apnea (adult) (pediatric); M16.0 Bilateral primary osteoarthritis of hip; F41.9 Anxiety disorder, unspecified; F32.9 Major depressive disorder, single episode, unspecified; E78.5 Hyperlipidemia, unspecified; J45.909 Unspecified asthma, uncomplicated; G25.81 Restless legs syndrome; K44.9 Diaphragmatic hernia without obstruction or gangrene; Z98.84 Bariatric surgery status; E86.0 Dehydration; I11.9 Hypertensive heart disease without heart failure
CPT/HCPCS: 99211

== ENCOUNTER → 2020-11-16 | Outpatient (CLI) | payer OTHER ==
[2020-11-16 09:29] VITALS: BP 133/76; PULSE 85; RESP 16; TEMP 98
[2020-11-16] MEDS: SODIUM CHLORIDE 0.9% 1,000 ML IV SCH ×2 (09:38→10:28)
== END | disposition home or self-care (01) ==
LOC: PROCWHC3 09:06
PROVIDERS: ATTEND Surgery Plastic and Reconstructive Surgery
DX: E86.0 Dehydration (principal)
CPT/HCPCS: 96360; 96361

== ENCOUNTER → 2020-11-21 | Outpatient (CLI) | payer OTHER ==
[2020-11-21 14:31] VITALS: BP 127/71; PULSE 80; RESP 16; TEMP 97.8; BMI 37.4
--- NOTE | 2020-11-21 15:12 | P.PN ---
Subjective Progress Note Date: 11/21/20 DATE OF SERVICE: 11/21/2020 CHIEF COMPLAINT: Status post sleeve gastrectomy HISTORY OF PRESENT ILLNESS: Spencer Juares is a 50-year-old status post sleeve gastrectomy, 11/12/2020. She is 2 weeks out. She had reports mild gastroesophageal reflux. She denies any further dehydration. She denies abdominal pain. She is tolerating diet. She is excited with her weight loss. At her height of 5 foot 4.25 inches, her ideal body weight is 144 pounds. Her highest weight is 241 pounds, BMI 41.1. She comes in 217 pounds from 224 pounds, 1 week ago. She lost 6 pounds in 1 week. Body mass index is 37.4. Lifetime weight loss is 23 pounds. Her lifetime percent excess weight loss is 24%. She is 74 pounds overweight. PHYSICAL EXAM: VITAL SIGNS: Height 5 foot 4.25 inches, weight 217 pounds. BMI 37.4 Vital Signs Temp 97.8 F 11/21/20 14:29 Pulse 80 11/21/20 14:29 Resp 16 11/21/20 14:29 BP 127/71 11/21/20 14:29 Pulse Ox GENERAL: Well-developed female in no acute distress. HEENT: No scleral icterus. Extraocular movements grossly intact. Hears conversational speech. No nasal drainage. NECK: Supple without lymphadenopathy. CHEST: Nonlabored respirations with equal bilateral excursions. CARDIOVASCULAR: Regular rate. Distal 2+ pulses. ABDOMEN: Non-tender, non-distended MUSCULOSKELETAL: No clubbing, cyanosis. NEURO: No focal or lateralizing signs. Cranial nerves 2 through 12 grossly within normal limits. PSYCH: Appropriate affect. Alert and oriented to person, place and time. SKIN: Good skin turgor. Well perfused. ASSESSMENT: 1. Morbid obesity due to excess calories 2. Body mass index 41.2 down to 37.4 3. Seasonal ALLERGIES. 4. Obstructive sleep apnea. 5. Osteoarthritis of the hips 6. Hypertensive heart disease. 7. Gastroesophageal reflux disease, resolved 8. Anxiety. 9. Depression. 10. Hyperlipidemia. 11. Degenerative joint disease. 12. Asthma. 13. Restless leg syndrome. 14. Family history of morbid obesity. 15. Diaphragmatic hiatal hernia. 16. Iron deficiency. 17. Status post sleeve gastrectomy 18. Dehydration PLAN: 1. Recommend food diary journal 2. She has improved on her fluids. Objective - Vital Signs Vital signs: Vital Signs Temp 97.8 F 11/21/20 14:29 Pulse 80 11/21/20 14:29 Resp 16 11/21/20 14:29 BP 127/71 11/21/20 14:29 Pulse Ox Intake & Output 11/20/20 11/21/20 11/21/20 18:59 06:59 18:59 Weight 98.883 kg
== END | disposition home or self-care (01) ==
LOC: BARWHC3 13:50
PROVIDERS: ATTEND Surgery Plastic and Reconstructive Surgery
DX: E66.01 Morbid (severe) obesity due to excess calories (principal); G47.33 Obstructive sleep apnea (adult) (pediatric); M16.0 Bilateral primary osteoarthritis of hip; I11.9 Hypertensive heart disease without heart failure; F41.9 Anxiety disorder, unspecified; F32.9 Major depressive disorder, single episode, unspecified; E78.5 Hyperlipidemia, unspecified; J45.909 Unspecified asthma, uncomplicated; G25.81 Restless legs syndrome; K44.9 Diaphragmatic hernia without obstruction or gangrene; E61.1 Iron deficiency; Z98.84 Bariatric surgery status; Z68.37 Body mass index [BMI] 37.0-37.9, adult; E86.0 Dehydration; J30.2 Other seasonal allergic rhinitis
CPT/HCPCS: 97803; G0463; 99211

== ENCOUNTER → 2020-12-05 | Outpatient (CLI) | payer OTHER ==
[2020-12-05 15:28] VITALS: BP 100/69; PULSE 73; RESP 18; TEMP 98.2; BMI 35.8
--- NOTE | 2020-12-05 15:33 | P.PN ---
Subjective Progress Note Date: 12/05/20 She no longer has GERD. She has improved energy. Due for labs. She lost over 20 pounds. She is 1 month. Multivitamin advised. Recommend food diary journal. Protein of 65 grams daily described. Objective - Vital Signs Vital signs: Vital Signs Temp 98.2 F 12/05/20 15:24 Pulse 73 12/05/20 15:24 Resp 18 12/05/20 15:24 BP 100/69 12/05/20 15:24 Pulse Ox Intake & Output 12/04/20 12/05/20 12/05/20 18:59 06:59 18:59 Weight 94.71 kg
== END | disposition home or self-care (01) ==
LOC: BARWHC3 14:43
PROVIDERS: ATTEND Surgery Plastic and Reconstructive Surgery
DX: E66.01 Morbid (severe) obesity due to excess calories (principal)
CPT/HCPCS: 97803; G0463; 99211

== ENCOUNTER → 2020-12-17 | Outpatient (CLI) | payer OTHER ==
[2020-12-17 18:16] LABS: HCT 40.9 % (37.2-46.3); HGB 13.3 g/dL (12.0-15.0); MCH 29.6 pg (27.0-32.0); MCHC 32.5 g/dL (32.0-37.0); MCV 91.1 fL (80.0-97.0); Mean Platelet Volume 12.1 fL (9.5-12.2); Platelet Count 239 X 10*3/uL (140-440); RBC 4.49 X 10*6/uL (4.10-5.20); RDW 12.5 % (11.5-14.5); WBC 4.41 X 10*3/uL (4.50-10.00)
[2020-12-17 19:25] LABS: Hemoglobin A1C 4.6 % (4.0-6.0)
[2020-12-17 21:25] LABS: % Iron Saturation 38.61 (12.00-45.00); African American GFR (CKD) 98.9 (60.0-200.0); Albumin 4.4 g/dL (3.80-4.90); Albumin/Globulin Ratio 2.44 (1.60-3.17); BUN/Creat Ratio 11.25 Ratio (12.00-20.00); Calcium 9.4 mg/dL (8.7-10.3); Chol/HDL Ratio 2.9; Globulin 1.8 g/dL (1.6-3.3); LDL Cholesterol,Calculated 93.4 mg/dL (0.0-131.0); Non-African American GFR(CKD) 85.4 (60.0-200.0); Phosphorus 2.5 mg/dL (2.4-5.1); Potassium 3.8 mmol/L (3.5-5.5); Total Bilirubin 0.5 mg/dL (0.3-1.2); Total Protein 6.2 g/dL (6.2-8.2); VLDL Calculation 24.6 mg/dL (5.00-40.00)
[2020-12-17 21:35] LABS: Ferritin 102.9 ng/mL (10.0-291.0)
[2020-12-17 21:36] LABS: Folate, Serum 20.3 ng/mL
[2020-12-18 00:40] LABS: INR 0.98 (0.90-1.11); Partial Thromboplastin Time 25.6 sec (23.5-31.0); Prothrombin Time 10.7 sec (9.9-11.9)
[2020-12-18 12:54] LABS: Zinc, Serum 72 ug/dL (60-130)
[2020-12-19 06:35] LABS: Vitamin A 43 ug/dL (38-106)
[2020-12-19 06:42] LABS: Vit B1(Thiamine) 36 ug/L (38-122)
== END | disposition home or self-care (01) ==
LOC: LABWHC1 11:12
PROVIDERS: ATTEND Surgery Plastic and Reconstructive Surgery
DX: D50.8 Other iron deficiency anemias (principal); E44.0 Moderate protein-calorie malnutrition; E55.9 Vitamin D deficiency, unspecified; K74.1 Hepatic sclerosis; N19 Unspecified kidney failure; K50.90 Crohn's disease, unspecified, without complications
CPT/HCPCS: 36415; 80053; 80061; 82306; 82525; 82607; 82728; 82746; 83036; 83540; 83550; 83735; 83970; 84100; 84134; 84255; 84425; 84443; 84590; 84630; 85027; 85610; 85730

== ENCOUNTER → 2021-01-16 | Outpatient (CLI) | payer OTHER ==
--- NOTE | 2021-01-16 16:48 | P.PN ---
Subjective Progress Note Date: 01/16/21 DATE OF SERVICE: 01/16/2021 CHIEF COMPLAINT: Status post sleeve gastrectomy HISTORY OF PRESENT ILLNESS: Spencer Juares is a 50-year-old status post sleeve gastrectomy, 11/12/2020. She is 2 months out. She reports new diffuse abdominal pain. She has diverticulosis. She had poor prep in the past. She reports feeling sick for 1 month with change in bowel habits. She has history of redundant colon. She reports new gas bloat. She comes in with new abdominal pain and constipation. She comes in with dehydration. At her height of 5 foot 4.25 inches, her ideal body weight is 144 pounds. Her highest weight is 241 pounds, BMI 41.1. She comes in 191 pounds from 208 pounds, 1 month ago. She lost 18 pounds 1 month ago. Body mass index is 32.8. Lifetime weight loss is 50 pounds. Her lifetime percent excess weight loss is 52%. She is 46 pounds overweight. PAST MEDICAL HISTORY: 1. Morbid obesity due to excess calories 2. Body mass index 41.2 3. Seasonal ALLERGIES. 4. Obstructive sleep apnea. 5. Osteoarthritis of the hips 6. Hypertensive heart disease. 7. Gastroesophageal reflux disease 8. Anxiety. 9. Depression. 10. Hyperlipidemia. 11. Degenerative joint disease. 12. Asthma. 13. Restless leg syndrome. 14. Osteoarthritis of the knees. PAST SURGICAL HISTORY: 1. Tubal Ligation 2. Uterine ablation. 3. Orthopedic procedure. 4. Upper endoscopy. 5. Cholecystectomy 6. Status post sleeve gastrectomy HOME MEDICATIONS: ALLERGIES: Denies. SOCIAL HISTORY: No active tobacco use. FAMILY HISTORY: No family history of ulcerative colitis disease or Crohn's disease. She does have a family history of morbid obesity. She denies any lupus in her family. No reports of stomach or esophageal cancer. REVIEW OF ORGAN SYSTEMS: CONSTITUTIONAL: Her present weight was 241 pounds. At her height of 5 foot 4.25 inches, her ideal body weight is 144 pounds. Her BMI was 41.1 HEENT: Denies any active troubles with hearing or vision. No troubles with swallowing. ENDOCRINE: No diabetes. No hypothyroidism. CARDIOVASCULAR: No reports of palpitations or heart attacks or chest pain. Has hypertension. Has hyperlipidemia. RESPIRATORY: Has daytime somnolence including snoring and sleep apnea. No asthma. Has seasonal ALLERGIES. GI: Denies any bright red blood per rectum or constipation. Does have gastroesophageal reflux disease. MUSCULOSKELETAL: Has lower back pain, left hip and right knee pain. No scoliosis. History of left heel spur. NEURO: Has headaches. No seizure disorders. PSYCH: Has depression without suicidal ideation. Has anxiety. RHEUMATOLOGIC: No lupus. No rheumatoid arthritis. HEMATOLOGIC: Denies any abnormal bleeding or bruising. No personal history of DVTs. SKIN: No rash. No skin cancer. PHYSICAL EXAM: VITAL SIGNS: Height 5 foot 4.25 inches, weight 191 pounds. BMI 32.8 Vital Signs Temp 97.8 F 01/16/21 16:21 Pulse 71 01/16/21 16:21 Resp 18 01/16/21 16:21 BP 134/84 01/16/21 16:21 Pulse Ox GENERAL: Well-developed female in no acute distress. HEENT: No scleral icterus. Extraocular movements grossly intact. Hears conversational speech. No nasal drainage. NECK: Supple without lymphadenopathy. CHEST: Nonlabored respirations with equal bilateral excursions. CARDIOVASCULAR: Regular rate. Distal 2+ pulses. ABDOMEN: No peritonitis. No hernia. MUSCULOSKELETAL: No clubbing, cyanosis. NEURO: No focal or lateralizing signs. Cranial nerves 2 through 12 grossly within normal limits. PSYCH: Appropriate affect. Alert and oriented to person, place and time. SKIN: Good skin turgor. Well perfused. LABS: WBC is low, HDL is elevated, Vitamin B1 is low, Copper is excess ASSESSMENT: 1. Morbid obesity due to excess calories 2. Body mass index 41.2 down to 32.8 3. Seasonal ALLERGIES. 4. Obstructive sleep apnea. 5. Osteoarthritis of the hips 6. Hypertensive heart disease. 7. Gastroesophageal reflux disease, resolved 8. Anxiety. 9. Depression. 10. Hyperlipidemia. 11. Degenerative joint disease. 12. Asthma. 13. Restless leg syndrome. 14. Family history of morbid obesity. 15. Diaphragmatic hiatal hernia. 16. Iron deficiency. 17. Status post sleeve gastrectomy 18. Thiamine deficiency 19. Copper excess. 20. Dehydration. PLAN: 1. Recommend CT of the abdomen and pelvis for diverticulitis. 2. Recommend colonoscopy pending CT scan results. 3. Recommend IV fluid hydration. Objective - Vital Signs Vital signs: Vital Signs Temp 97.8 F 01/16/21 16:21 Pulse 71 01/16/21 16:21 Resp 18 01/16/21 16:21 BP 134/84 01/16/21 16:21 Pulse Ox Intake & Output 01/15/21 01/16/21 01/16/21 18:59 06:59 18:59 Weight 86.636 kg
== END ==
CPT/HCPCS: 99211

== ENCOUNTER → 2021-01-18 | Outpatient (CLI) | payer OTHER ==
[~2021-01-18] MED LIST changes: -ACETAMINOPHEN TAB 500 MG TAB PO STA; -CHLORHEXIDINE GLUCONATE 15 ML CUP MUCOUS MEM PRN; -DEXAMETHASONE SOD PHOSPHATE 4 MG/ML 1 ML VIAL IV ONE; -ENOXAPARIN 40 MG/0.4 ML SYRINGE SQ PRN; -GABAPENTIN 300 MG CAP PO STA; -MELOXICAM 7.5 MG TAB PO ONE; -MIDAZOLAM 2 MG/2 ML VIAL IV PRN; -ONDANSETRON 4 MG/2 ML VIAL IVP ONE; -PANTOPRAZOLE 40 MG/10 ML VIAL IVP PRN; -SCOPOLAMINE 1.5MG/72HR PATCH TRANSDERM ONE; -SCOPOLAMINE 1.5MG/72HR PATCH TRANSDERM STA; +SODIUM CHLORIDE 0.9% 500 ML 500 ML in EMPTY BAG 1 BAG IV PRN
[2021-01-18 11:04] VITALS: BP 145/86; PULSE 80; RESP 15; TEMP 98
[2021-01-18] MEDS: SODIUM CHLORIDE 0.9% 1,000 ML IV NR ×2 (11:05→12:06)
== END ==
LOC: PROCWHC3 10:53
PROVIDERS: ATTEND Surgery Plastic and Reconstructive Surgery
DX: E86.0 Dehydration (principal)
CPT/HCPCS: 96360; 96361

== ENCOUNTER → 2021-01-22 | Outpatient (CLI) | payer OTHER ==
--- NOTE | 2021-01-22 10:08 | CT ---
EXAMINATION TYPE: CT abdomen pelvis w con DATE OF EXAM: 01/22/2021 COMPARISON: 05/29/2019E, and pubic differences in enhancement and HISTORY: H/o generalized abd pain after gastric sleeve 11.12.2020 CT DLP: 756.6 mGycm CONTRAST: CT scan of the abdomen and pelvis is performed with Oral Contrast and with IV Contrast, patient injec jan with 100 with bariatric oral prep mL of Isovue 300. FINDINGS: LUNG BASES-: No visible nodule. No infiltrate. LIVER/GB: No calcified gallstones. No space occupying hepatic lesion. Biliary tree is of normal ca liber. PANCREAS: No inflammation. No distinct mass. SPLEEN: No splenic enlargement. No lesion seen. ADRENALS: No nodule. No thickening. KIDNEYS/BLADDER: No hydronephrosis. No nephrolithiasis. No distinct renal mass. Urinary bladder g rossly unremarkable. BOWEL: Normal appendix. Normal bowel caliber. No inflammation. GENITAL ORGANS: Hypoattenuating lesion of the uterus may reflect leiomyoma. No adnexal masses seen. LYMPH NODES: No greater than 1cm abdominal or pelvic lymph nodes are appreciated. AORTA: No significant abnormality. OSSEOUS STRUCTURES: No significant abnormality is seen. OTHER: No significant additional abnormality is seen. IMPRESSION: 1. No acute process identified to account for the patient's symptoms.
== END | disposition home or self-care (01) ==
LOC: RADCTMAIN 08:59
PROVIDERS: ATTEND Surgery Plastic and Reconstructive Surgery
DX: K57.92 Diverticulitis of intestine, part unspecified, without perforation or abscess without bleeding (principal)
CPT/HCPCS: 74177; Q9967

== ENCOUNTER 2021-01-28 07:42 | Day surgery (SDC) | payer OTHER ==
[2021-01-23 13:52] VITALS: BMI 32.1
--- NOTE | 2021-01-28 07:35 | P.GSHP ---
History of Present Illness H&P Date: 01/28/21 CHIEF COMPLAINT: Diverticulitis HISTORY OF PRESENT ILLNESS: The patient is a 50-year-old female who presents with change in bowel habit and diverticulitis. Upper and lower endoscopy were offered for further evaluation and management. PAST MEDICAL HISTORY: Please see list. PAST SURGICAL HISTORY: Please see list. MEDICATIONS: Please see list. ALLERGIES: Please see list. SOCIAL HISTORY: No illicit drug use FAMILY HISTORY: No reports of Crohn disease or ulcerative colitis. REVIEW OF ORGAN SYSTEMS: CONSTITUTIONAL: No reports of fevers or chills. GI: Denies any blood in stools or constipation. PHYSICAL EXAM: VITAL SIGNS: Stable GENERAL: Well-developed pleasant in no acute distress. HEENT: No scleral icterus. Extraocular movements grossly intact. Moist buccal mucosa. NECK: Supple without lymphadenopathy. CHEST: Unlabored respirations. Equal bilateral excursions. CARDIOVASCULAR: Regular rate and rhythm. Distal 2+ pulses. ABDOMEN: Soft, nondistended. MUSCULOSKELETAL: No clubbing, cyanosis, or edema. ASSESSMENT: 1. Diverticulitis PLAN: 1. Recommend proceeding with lower endoscopy Past Medical History Past Medical History: GERD/Reflux, Osteoarthritis (OA) Additional Past Medical History / Comment(s): Neuropathy. History of Any Multi-Drug Resistant Organisms: None Reported Past Surgical History: Bariatric Surgery, Cholecystectomy, Orthopedic Surgery, Tubal Ligation, Uterine Ablation Additional Past Surgical History / Comment(s): Bilateral knee arthroscopy, hiatal hernia surgery, cyst in groin area removed, Gastric Sleeve Oct 2020, Colonoscopy. Past Anesthesia/Blood Transfusion Reactions: Previous Problems w/ Anesthesia Additional Past Anesthesia/Blood Transfusion Reaction / Comment(s): With Anesthesia for lesion on cyst in groin area feet curled lateral, high BP and shaking. Never had a problem with anesthesia from [facility] since this incident. Past Psychological History: Anxiety, Depression Smoking Status: Never smoker Past Alcohol Use History: None Reported Past Drug Use History: None Reported - Past Family History Mother Family Medical History: Cancer Father Family Medical History: Cancer Brother(s) Family Medical History: Cancer Medications and Allergies Home Medications Medication Instructions Recorded Confirmed Type Sertraline [Zoloft] 100 mg PO BID 11/05/17 01/23/21 History ALPRAZolam [Xanax] 0.25 mg PO TID PRN 05/29/19 01/23/21 History Estrogen,Con/M-Progest Acet 1 tab PO DAILY 05/29/19 01/23/21 History [Prempro 0.625-2.5 mg Tablet] Gabapentin [Neurontin] 600 mg PO TID 05/29/19 01/23/21 History rOPINIRole HCL [Requip] 2 mg PO HS 05/29/19 01/23/21 History traMADol HCl [Ultram] 50 mg PO Q6HR PRN 08/27/20 01/23/21 History Cetirizine HCl [Zyrtec] 10 mg PO HS 11/07/20 01/23/21 History Montelukast Sodium [Singulair] 10 mg PO HS 11/07/20 01/23/21 History buPROPion HCL [Wellbutrin XL] 300 mg PO DAILY 11/07/20 01/23/21 History lamoTRIgine [LaMICtal] 100 mg PO HS 11/12/20 01/23/21 History Acetaminophen Tab [Tylenol Tab] 1,000 mg PO Q6HR PRN #30 tablet 11/13/20 01/23/21 Rx Omeprazole [PriLOSEC] 40 mg PO DAILY #30 capsule. 11/13/20 01/23/21 Rx Ondansetron Odt [Zofran Odt] 4 mg PO Q8HR PRN #9 tab 11/13/20 01/23/21 Rx Simethicone 40 mg/0.6 ml Drops 40 mg PO PCHS PRN #30 ml 11/13/20 01/23/21 Rx [Mylicon Drops] Ergocalciferol (Vitamin D2) 1,250 mcg PO MO 01/23/21 01/23/21 History [Vitamin D2 (50,000 Iu)] lamoTRIgine [LaMICtal] 50 mg PO QAM 01/23/21 01/23/21 History Allergies Allergy/AdvReac Type Severity Reaction Status Date / Time No Known Allergies Allergy Verified 01/23/21 13:38
[~2021-01-28 07:42] MED LIST changes: +LACTATED RINGERS 1,000 ML IV SCH; +LIDOCAINE 1% (10MG/ML) FOR IV START INTRADERMA PRN; -SODIUM CHLORIDE 0.9% 500 ML 500 ML in EMPTY BAG 1 BAG IV PRN
[2021-01-28 08:07] VITALS: RESP 16; TEMP 98
[2021-01-28] MEDS ORDERED: PROPOFOL 10 MG/ML 20 ML VIAL IV ONE (08:31)
--- NOTE | 2021-01-28 09:14 | P.PCN ---
Date of Procedure: 01/28/21 Description of Procedure: PREOPERATIVE DIAGNOSIS: Colitis Change in bowel habits POSTOPERATIVE DIAGNOSIS: Change in bowel habits Diverticulosis, scattered Mid transverse colon polyp OPERATION: Colonoscopy to the cecum, ileocecal valve and appendiceal orifice. Colonoscopy with cold forceps biopsy SURGEON: Renetta Bower MD. ANESTHESIA: MAC. INDICATIONS: The patient is a 50-year-old female who presents with change in bowel habits and colitis. Benefits and risks were described and informed consent was obtained. DESCRIPTION OF PROCEDURE: The patient had undergone Suprep tabs. The patient had been brought into the operating room and laid in the left lateral decubitus position. After adequate intravenous sedation, the rectum was examined with 2% lidocaine jelly. No external hemorrhoids were encountered. The rectal tone was within normal limits. No lesions were palpated in the rectal vault. An Olympus colonoscope was advanced until the cecum, ileocecal valve and appendiceal orifice were clearly viewed. The prep was excellent. Scattered diverticulosis was encountered. Colonic polyps were found and removed. Stool cultures were obtained for recent history of colitis. Retroflexion of the scope demonstrated grade 1 internal hemorrhoids without active bleeding or inflammation. The colon was desufflated. The patient had tolerated the procedure well. Withdrawal time was over 6 minutes. FINDINGS: Aronchick preparation quality scale 1 (1-5) Internal hemorrhoids, grade 1 No external prolapsed hemorrhoids. No arteriovenous malformations. Scattered diverticulosis. Redundant sigmoid colon Stool cultures obtained for history of colitis Removal of 1 polyp: - Cold forceps biopsy mid transverse colon, 3 mm polyp No focal colitis. RECOMMENDATIONS: Lower endoscopy in 5 years, 2025 Plan - Discharge Summary Discharge Rx Participant: Yes New Discharge Prescriptions: New metroNIDAZOLE [Flagyl] 500 mg PO TID #30 tab Continue Sertraline [Zoloft] 100 mg PO BID ALPRAZolam [Xanax] 0.25 mg PO TID PRN PRN Reason: Anxiety Estrogen,Con/M-Progest Acet [Prempro 0.625-2.5 mg Tablet] 1 tab PO DAILY Gabapentin [Neurontin] 600 mg PO TID rOPINIRole HCL [Requip] 2 mg PO HS traMADol HCl [Ultram] 50 mg PO Q6HR PRN PRN Reason: Pain Montelukast Sodium [Singulair] 10 mg PO HS Cetirizine HCl [Zyrtec] 10 mg PO HS buPROPion HCL [Wellbutrin XL] 300 mg PO DAILY lamoTRIgine [LaMICtal] 100 mg PO HS Simethicone 40 mg/0.6 ml Drops [Mylicon Drops] 40 mg PO PCHS PRN #30 ml PRN Reason: Gas Omeprazole [PriLOSEC] 40 mg PO DAILY #30 capsule. Ondansetron Odt [Zofran ODT] 4 mg PO Q8HR PRN #9 tab PRN Reason: Nausea Acetaminophen Tab [Tylenol] 1,000 mg PO Q6HR PRN #30 tablet PRN Reason: Pain lamoTRIgine [LaMICtal] 50 mg PO QAM Ergocalciferol (Vitamin D2) [Vitamin D2 (50,000 Iu)] 1,250 mcg PO MO Discharge Medication List Sertraline [Zoloft] 100 mg PO BID 11/05/17 [History] ALPRAZolam [Xanax] 0.25 mg PO TID PRN 05/29/19 [History] Estrogen,Con/M-Progest Acet [Prempro 0.625-2.5 mg Tablet] 1 tab PO DAILY 05/29/19 [History] Gabapentin [Neurontin] 600 mg PO TID 05/29/19 [History] rOPINIRole HCL [Requip] 2 mg PO HS 05/29/19 [History] traMADol HCl [Ultram] 50 mg PO Q6HR PRN 08/27/20 [History] Cetirizine HCl [Zyrtec] 10 mg PO HS 11/07/20 [History] Montelukast Sodium [Singulair] 10 mg PO HS 11/07/20 [History] buPROPion HCL [Wellbutrin XL] 300 mg PO DAILY 11/07/20 [History] lamoTRIgine [LaMICtal] 100 mg PO HS 11/12/20 [History] Acetaminophen Tab [Tylenol] 1,000 mg PO Q6HR PRN #30 tablet 11/13/20 [Rx] Omeprazole [PriLOSEC] 40 mg PO DAILY #30 capsule. 11/13/20 [Rx] Ondansetron Odt [Zofran ODT] 4 mg PO Q8HR PRN #9 tab 11/13/20 [Rx] Simethicone 40 mg/0.6 ml Drops [Mylicon Drops] 40 mg PO PCHS PRN #30 ml 11/13/20 [Rx] Ergocalciferol (Vitamin D2) [Vitamin D2 (50,000 Iu)] 1,250 mcg PO MO 01/23/21 [History] lamoTRIgine [LaMICtal] 50 mg PO QAM 01/23/21 [History] metroNIDAZOLE [Flagyl] 500 mg PO TID #30 tab 01/28/21 [Rx] [facility] [place] [place] [facility] [place] [facility] Patient Instructions/Handouts: Diverticulosis Diet (GEN), Diverticulosis (DC), Colorectal Polyps (DC), C Diff (Clostridium Difficile) Infection (DC) Discharge Disposition: HOME SELF-CARE
[2021-01-28 09:32] VITALS: BP 114/77; PULSE 71
== END 2021-01-28 09:58 | disposition home or self-care (01) ==
LOC: ORWHC2ENDO 07:42
PROVIDERS: ATTEND Surgery Plastic and Reconstructive Surgery
DX: D12.3 Benign neoplasm of transverse colon (principal); K57.30 Diverticulosis of large intestine without perforation or abscess without bleeding; K64.0 First degree hemorrhoids; R19.4 Change in bowel habit; K21.9 Gastro-esophageal reflux disease without esophagitis; M19.90 Unspecified osteoarthritis, unspecified site; F41.9 Anxiety disorder, unspecified; F32.9 Major depressive disorder, single episode, unspecified; Z79.899 Other long term (current) drug therapy; Z80.9 Family history of malignant neoplasm, unspecified; Z98.84 Bariatric surgery status
CPT/HCPCS: 88305; 45380; J2704

== ENCOUNTER → 2021-02-06 | Outpatient (CLI) | payer OTHER ==
[2021-02-06 14:33] VITALS: BP 143/73; PULSE 70; RESP 18; TEMP 97.8; BMI 31.4
--- NOTE | 2021-02-06 14:55 | P.PN ---
Subjective Progress Note Date: 02/06/21 DATE OF SERVICE: 02/06/2021 CHIEF COMPLAINT: Status post sleeve gastrectomy HISTORY OF PRESENT ILLNESS: Spencer Juares is a 50-year-old status post sleeve gastrectomy, 11/12/2020. She is 3 months out. Her abdominal pain has improved. She feels much better. She has lost more weight. She is eating more. She feels better after taking flagyl for colitis. At her height of 5 foot 4.25 inches, her ideal body weight is 144 pounds. Her highest weight is 241 pounds, BMI 41.1. She comes in 183 pounds from 191 pounds, 1 month ago. She lost 8 pounds 1 month ago. Body mass index is 31.4. Lifetime weight loss is 58 pounds. Her lifetime percent excess weight loss is 60 %. She is 39 pounds overweight. PAST MEDICAL HISTORY: 1. Morbid obesity due to excess calories 2. Body mass index 41.2 3. Seasonal ALLERGIES. 4. Obstructive sleep apnea. 5. Osteoarthritis of the hips 6. Hypertensive heart disease. 7. Gastroesophageal reflux disease 8. Anxiety. 9. Depression. 10. Hyperlipidemia. 11. Degenerative joint disease. 12. Asthma. 13. Restless leg syndrome. 14. Osteoarthritis of the knees. PAST SURGICAL HISTORY: 1. Tubal Ligation 2. Uterine ablation. 3. Orthopedic procedure. 4. Upper endoscopy. 5. Cholecystectomy 6. Status post sleeve gastrectomy 7. Hiatal hernia repair HOME MEDICATIONS: Home Medications Medication Instructions Recorded Confirmed Sertraline [Zoloft] 100 mg PO BID 11/05/17 02/06/21 ALPRAZolam [Xanax] 0.25 mg PO TID PRN 05/29/19 02/06/21 Estrogen,Con/M-Progest Acet 1 tab PO DAILY 05/29/19 02/06/21 [Prempro 0.625-2.5 mg Tablet] Gabapentin [Neurontin] 600 mg PO TID 05/29/19 02/06/21 rOPINIRole HCL [Requip] 2 mg PO HS 05/29/19 02/06/21 traMADol HCl [Ultram] 50 mg PO Q6HR PRN 08/27/20 02/06/21 Cetirizine HCl [Zyrtec] 10 mg PO HS 11/07/20 02/06/21 Montelukast Sodium [Singulair] 10 mg PO HS 11/07/20 02/06/21 buPROPion HCL [Wellbutrin XL] 300 mg PO DAILY 11/07/20 02/06/21 lamoTRIgine [LaMICtal] 100 mg PO HS 11/12/20 02/06/21 Ergocalciferol (Vitamin D2) 1,250 mcg PO MO 01/23/21 02/06/21 [Vitamin D2 (50,000 Iu)] lamoTRIgine [LaMICtal] 50 mg PO QAM 01/23/21 02/06/21 Previous Rx's Medication Instructions Recorded Acetaminophen Tab [Tylenol] 1,000 mg PO Q6HR PRN #30 tablet 11/13/20 Omeprazole [PriLOSEC] 40 mg PO DAILY #30 capsule. 11/13/20 Ondansetron Odt [Zofran ODT] 4 mg PO Q8HR PRN #9 tab 11/13/20 Simethicone 40 mg/0.6 ml Drops 40 mg PO PCHS PRN #30 ml 11/13/20 [Mylicon Drops] metroNIDAZOLE [Flagyl] 500 mg PO TID #30 tab 01/28/21 ALLERGIES: Allergies Allergy/AdvReac Type Severity Reaction Status Date / Time No Known Allergies Allergy Verified 02/06/21 14:33 SOCIAL HISTORY: No active tobacco use. FAMILY HISTORY: No family history of ulcerative colitis disease or Crohn's disease. She does have a family history of morbid obesity. She denies any lupus in her family. No reports of stomach or esophageal cancer. REVIEW OF ORGAN SYSTEMS: CONSTITUTIONAL: Her present weight was 241 pounds. At her height of 5 foot 4.25 inches, her ideal body weight is 144 pounds. Her BMI was 41.1 HEENT: Denies any active troubles with hearing or vision. No troubles with swallowing. ENDOCRINE: No diabetes. No hypothyroidism. CARDIOVASCULAR: No reports of palpitations or heart attacks or chest pain. Has hypertension. Has hyperlipidemia. RESPIRATORY: Has daytime somnolence including snoring and sleep apnea. No asthma. Has seasonal ALLERGIES. GI: Denies any bright red blood per rectum or constipation. Does have gastroesophageal reflux disease. MUSCULOSKELETAL: Has lower back pain, left hip and right knee pain. No scoliosis. History of left heel spur. NEURO: Has headaches. No seizure disorders. PSYCH: Has depression without suicidal ideation. Has anxiety. RHEUMATOLOGIC: No lupus. No rheumatoid arthritis. HEMATOLOGIC: Denies any abnormal bleeding or bruising. No personal history of DVTs. SKIN: No rash. No skin cancer. PHYSICAL EXAM: VITAL SIGNS: Height 5 foot 4.25 inches, weight 191 pounds. BMI 32.8 Vital Signs Temp 97.8 F 02/06/21 14:31 Pulse 70 02/06/21 14:31 Resp 18 02/06/21 14:31 BP 143/73 02/06/21 14:31 Pulse Ox GENERAL: Well-developed female in no acute distress. HEENT: No scleral icterus. Extraocular movements grossly intact. Hears conversational speech. No nasal drainage. NECK: Supple without lymphadenopathy. CHEST: Nonlabored respirations with equal bilateral excursions. CARDIOVASCULAR: Regular rate. Distal 2+ pulses. ABDOMEN: No peritonitis. No hernia. MUSCULOSKELETAL: No clubbing, cyanosis. NEURO: No focal or lateralizing signs. Cranial nerves 2 through 12 grossly within normal limits. PSYCH: Appropriate affect. Alert and oriented to person, place and time. SKIN: Good skin turgor. Well perfused. STOOL STUDIES: Calprotectin is mild elevated. STUDIES: CT of the abdomen and pelvis independently reviewed without recurrent hiatal hernia. No active diverticulitis identified. No small bowel obstruction. This is my independent interpretation. COLONOSCOPY FINDINGS: Aronchick preparation quality scale 1 (1-5) Internal hemorrhoids, grade 1 No external prolapsed hemorrhoids. No arteriovenous malformations. Scattered diverticulosis. Redundant sigmoid colon Stool cultures obtained for history of colitis Removal of 1 polyp: - Cold forceps biopsy mid transverse colon, 3 mm polyp No focal colitis. Final Pathologic Diagnosis MID TRANSVERSE COLON POLYP, BIOPSY: Focal features compatible with tubular adenoma on deeper sections. ASSESSMENT: 1. Morbid obesity due to excess calories 2. Body mass index 41.2 down to 31.4 3. Seasonal ALLERGIES. 4. Obstructive sleep apnea. 5. Osteoarthritis of the hips 6. Hypertensive heart disease. 7. Gastroesophageal reflux disease, resolved 8. Anxiety. 9. Depression. 10. Hyperlipidemia. 11. Degenerative joint disease. 12. Asthma. 13. Restless leg syndrome. 14. Family history of morbid obesity. 15. Diaphragmatic hiatal hernia. 16. Iron deficiency. 17. Status post sleeve gastrectomy 18. Thiamine deficiency 19. Copper excess. 20. Colon adenoma 21. Scattered diverticulosis 22. Colitis PLAN: 1. She has elevated copper levels. She cooks in copperwear. Recommend alternative. 2. Recommend follow-up 6 months post op. Objective - Vital Signs Vital signs: Vital Signs Temp 97.8 F 02/06/21 14:31 Pulse 70 02/06/21 14:31 Resp 18 02/06/21 14:31 BP 143/73 02/06/21 14:31 Pulse Ox Intake & Output 02/05/21 02/06/21 02/06/21 18:59 06:59 18:59 Weight 83.007 kg
== END ==
LOC: BARWHC3 13:24
PROVIDERS: ATTEND Surgery Plastic and Reconstructive Surgery
DX: E66.01 Morbid (severe) obesity due to excess calories (principal); G47.33 Obstructive sleep apnea (adult) (pediatric); E78.5 Hyperlipidemia, unspecified; F32.9 Major depressive disorder, single episode, unspecified; F41.9 Anxiety disorder, unspecified; G25.81 Restless legs syndrome; I11.9 Hypertensive heart disease without heart failure; J45.909 Unspecified asthma, uncomplicated; M16.0 Bilateral primary osteoarthritis of hip; K44.9 Diaphragmatic hernia without obstruction or gangrene; Z77.22 Contact with and (suspected) exposure to environmental tobacco smoke (acute) (chronic); M19.90 Unspecified osteoarthritis, unspecified site; E61.1 Iron deficiency; Z98.84 Bariatric surgery status; E83.00 Disorder of copper metabolism, unspecified; E51.9 Thiamine deficiency, unspecified; D12.0 Benign neoplasm of cecum; K52.9 Noninfective gastroenteritis and colitis, unspecified; K57.90 Diverticulosis of intestine, part unspecified, without perforation or abscess without bleeding; Z68.31 Body mass index [BMI] 31.0-31.9, adult
CPT/HCPCS: 99211

== ENCOUNTER → 2021-02-21 | Outpatient (CLI) | payer OTHER ==
[2021-02-21 19:53] LABS: HCT 44.5 % (37.2-46.3); HGB 13.9 g/dL (12.0-15.0); MCHC 31.2 g/dL (32.0-37.0); MCV 96.1 fL (80.0-97.0); Mean Platelet Volume 11.6 fL (9.5-12.2); Platelet Count 243 X 10*3/uL (140-440); RBC 4.63 X 10*6/uL (4.10-5.20); RDW 12.5 % (11.5-14.5); WBC 4.44 X 10*3/uL (4.50-10.00)
[2021-02-21 23:23] LABS: Hemoglobin A1C 4.3 % (4.0-6.0)
[2021-02-21 23:58] LABS: INR 0.91 (0.90-1.11); Partial Thromboplastin Time 25.6 sec (23.5-31.0)
[2021-02-22 02:41] LABS: % Iron Saturation 38.01 (12.00-45.00); African American GFR (CKD) 98.9 (60.0-200.0); Albumin 4.4 g/dL (3.80-4.90); Anion Gap 10.2 mmol/L (4.00-12.00); BUN/Creat Ratio 13.75 Ratio (12.00-20.00); Carbon Dioxide 25.8 mmol/L (21.6-31.8); Chol/HDL Ratio 3.37; Globulin 2.2 g/dL (1.6-3.3); LDL Cholesterol,Calculated 145.6 mg/dL (0.0-131.0); Magnesium 2.2 mg/dL (1.5-2.4); Non-African American GFR(CKD) 85.4 (60.0-200.0); Phosphorus 2.8 mg/dL (2.4-5.1); Potassium 4.3 mmol/L (3.5-5.5); Total Bilirubin 0.6 mg/dL (0.3-1.2); Total Protein 6.6 g/dL (6.2-8.2); VLDL Calculation 22.4 mg/dL (5.00-40.00)
[2021-02-22 02:51] LABS: Ferritin 94.4 ng/mL (10.0-291.0)
[2021-02-22 02:57] LABS: Folate, Serum 15.4 ng/mL
[2021-02-22 14:18] LABS: Zinc, Serum 67 ug/dL (60-130)
== END | disposition home or self-care (01) ==
LOC: LABWHC1 11:14
PROVIDERS: ATTEND Surgery Plastic and Reconstructive Surgery
DX: N19 Unspecified kidney failure (principal); E55.9 Vitamin D deficiency, unspecified; K74.1 Hepatic sclerosis; E44.0 Moderate protein-calorie malnutrition; D50.8 Other iron deficiency anemias; E89.1 Postprocedural hypoinsulinemia; E66.01 Morbid (severe) obesity due to excess calories
CPT/HCPCS: 36415; 80053; 80061; 82306; 82525; 82607; 82728; 82746; 83036; 83540; 83550; 83735; 83970; 84100; 84134; 84255; 84425; 84443; 84590; 84630; 85027; 85610; 85730

== ENCOUNTER → 2021-05-08 | Outpatient (CLI) | payer OTHER ==
[2021-05-08 15:06] VITALS: BP 129/78; PULSE 65; RESP 16; TEMP 98.3; BMI 26.6
--- NOTE | 2021-05-08 15:11 | P.PN ---
Subjective Progress Note Date: 05/08/21 She has surpassed her weight loss goal. She has lost 100 pounds in 6 months. She is getting protein but lower amount. Needs labs. She has occasional food fear. She has occasional has bloat. Recommend food diary journal. Recommend labs. She is off lamictal. She is weaning off gabapentin. She reports seeing a neurologist with pulling along her back from her pannus. Criteria for panniculectomy. Food diary journal. Recommend treatment for thiamine deficiency. Objective - Vital Signs Vital signs: Vital Signs Temp 98.3 F 05/08/21 15:04 Pulse 65 05/08/21 15:04 Resp 16 05/08/21 15:04 BP 129/78 05/08/21 15:04 Pulse Ox Intake & Output 05/07/21 05/08/21 05/08/21 18:59 06:59 18:59 Weight 70.307 kg
== END | disposition home or self-care (01) ==
LOC: BARWHC3 14:23
PROVIDERS: ATTEND Surgery Plastic and Reconstructive Surgery
DX: E66.01 Morbid (severe) obesity due to excess calories (principal); Z71.3 Dietary counseling and surveillance; Z68.26 Body mass index [BMI] 26.0-26.9, adult
CPT/HCPCS: 99211

== ENCOUNTER → 2021-05-22 | Outpatient (CLI) | payer OTHER ==
[2021-05-22 11:28] LABS: INR 0.9 (<1.2); Prothrombin Time 9.7 sec (9.0-12.0)
[2021-05-22 12:25] LABS: Partial Thromboplastin Time 21.8 sec (22.0-30.0)
[2021-05-22 15:37] LABS: HGB 13.4 g/dL (12.0-15.0); MCH 29.8 pg (27.0-32.0); MCHC 31.9 g/dL (32.0-37.0); MCV 93.5 fL (80.0-97.0); Mean Platelet Volume 11.3 fL (9.5-12.2); Platelet Count 242 X 10*3/uL (140-440); RBC 4.49 X 10*6/uL (4.10-5.20); RDW 12.1 % (11.5-14.5)
[2021-05-22 17:51] LABS: Hemoglobin A1C 4.3 % (4.0-6.0)
[2021-05-22 19:04] LABS: % Iron Saturation 31.32 (12.00-45.00); ALT 13 U/L (8-44); AST 20 U/L (13-35); African American GFR (CKD) 98.9 (60.0-200.0); Alkaline Phosphatase 87 U/L (41-126); Calcium 9.6 mg/dL (8.7-10.3); Carbon Dioxide 27.1 mmol/L (21.6-31.8); Chloride 107 mmol/L (96-109); Chol/HDL Ratio 2.99; Cholesterol 215 mg/dL (0-200); Glucose 111 mg/dL (70-110); Iron 88 ug/dL (50-170); LDL Cholesterol,Calculated 118.6 mg/dL (0.0-131.0); Non-African American GFR(CKD) 85.4 (60.0-200.0); Phosphorus 3.5 mg/dL (2.4-5.1); Potassium 4.3 mmol/L (3.5-5.5); Sodium 143 mmol/L (135-145); Total Bilirubin 0.5 mg/dL (0.3-1.2); Total Iron Binding Capacity 281 ug/dL (228-460); Total Protein 6.2 g/dL (6.2-8.2)
[2021-05-22 19:12] LABS: Ferritin 77.7 ng/mL (10.0-291.0)
[2021-05-22 19:16] LABS: Folate, Serum >24.0 ng/mL
[2021-05-23 13:57] LABS: Zinc, Serum 61 ug/dL (60-130)
[2021-05-24 07:28] LABS: Vitamin A 57 ug/dL (38-106)
== END | disposition home or self-care (01) ==
LOC: LABWHC1 10:04
PROVIDERS: ATTEND Surgery Plastic and Reconstructive Surgery
DX: E66.01 Morbid (severe) obesity due to excess calories (principal); E89.1 Postprocedural hypoinsulinemia; D50.8 Other iron deficiency anemias; E44.0 Moderate protein-calorie malnutrition; K74.1 Hepatic sclerosis; N19 Unspecified kidney failure; K50.90 Crohn's disease, unspecified, without complications
CPT/HCPCS: 36415; 80053; 80061; 82306; 82525; 82607; 82728; 82746; 83036; 83540; 83550; 83735; 83970; 84100; 84134; 84255; 84425; 84443; 84590; 84630; 85027; 85610; 85730

== ENCOUNTER → 2021-08-07 | Outpatient (CLI) | payer OTHER ==
--- NOTE | 2021-08-07 14:10 | P.BASOAP ---
Subjective Progress Note Date: 08/07/21 She reports trouble with food. She reports lower abdominal pain and whole abdomen. She reports occassional constipation. She has lost 100+ pounds. She continues to lose weight. She reports pain is worse with eating. Esophagram advised. For bowel movements, recommend lactulose. Recommend labs Objective - Vital Signs Vital signs: Vital Signs Temp 98.1 F 08/07/21 13:37 Pulse 76 08/07/21 13:37 Resp BP 110/78 08/07/21 13:37 Pulse Ox Intake & Output 08/06/21 08/07/21 08/07/21 18:59 06:59 18:59 Weight 63.957 kg Assessment/Plan Plan: Date: 08/07/21 Initial Weight: 105.885 kg Initial BMI: 40.0 Current Weight: 63.957 kg Current BMI: 24.2 Type of Surgery: Total Volume in Band: Previous Volume: Volume Removed: Volume Added: Band Size:
[2021-08-07 15:55] VITALS: BP 110/78; PULSE 76; TEMP 98.1; BMI 24.2
== END | disposition home or self-care (01) ==
LOC: BARWHC3 13:19
PROVIDERS: ATTEND Surgery Plastic and Reconstructive Surgery
DX: E66.01 Morbid (severe) obesity due to excess calories (principal); Z71.3 Dietary counseling and surveillance
CPT/HCPCS: 97803; G0463; 99211

== ENCOUNTER → 2021-08-16 | Outpatient (CLI) | payer OTHER ==
[2021-08-16 11:54] LABS: HCT 37.9 % (34.0-46.0); HGB 13.6 gm/dL (11.4-16.0); MCH 32.2 pg (25.0-35.0); MCV 89.6 fL (80.0-100.0); Mean Platelet Volume 7.9; Platelet Count 236 k/uL (150-450); RBC 4.23 m/uL (3.80-5.40); RDW 12.7 % (11.5-15.5); WBC 5.1 k/uL (3.8-10.6)
[2021-08-16 11:59] LABS: INR 0.9 (<1.2); Partial Thromboplastin Time 21.7 sec (22.0-30.0); Prothrombin Time 9.7 sec (9.0-12.0)
[2021-08-16 12:01] LABS: ALT 11 U/L (4-34); AST 21 U/L (14-36); African American GFR (CKD) 81 (>60 ml/min/1.73 sqM); Albumin 3.9 g/dL (3.5-5.0); Alkaline Phosphatase 69 U/L (38-126); Anion Gap 6 mmol/L; Blood Urea Nitrogen 13 mg/dL (7-17); Calcium 9.5 mg/dL (8.4-10.2); Carbon Dioxide 27 mmol/L (22-30); Chloride 105 mmol/L (98-107); Glucose 90 mg/dL (74-99); Magnesium 2.2 mg/dL (1.6-2.3); Non-African American GFR(CKD) 70 (>60 ml/min/1.73 sqM); Phosphorus 3.5 mg/dL (2.5-4.5); Potassium 4.2 mmol/L (3.5-5.1); Sodium 138 mmol/L (137-145); Total Bilirubin 0.6 mg/dL (0.2-1.3); Total Protein 6.6 g/dL (6.3-8.2)
--- NOTE | 2021-08-16 17:03 | FL ---
EXAMINATION TYPE: FL barium swallow DATE OF EXAM: 08/16/2021 CLINICAL INDICATION: 50-year-old female R1 3.10, dysphagia. Patient with sleeve gastrectomy in 2020 and prior hiatal hernia repair in 2018. Patient complaining of food getting stuck and throwin g up for one month. COMPARISON: Correlation CT 01/22/2021 Total Fluoroscopy Time: 2 minutes 13 seconds 49 images obtained. FINDINGS: There is normal course and caliber of the thoracic esophagus with mild tertiary peristaltic contracti ons. There is prompt passage of contrast from the esophagus into the stomach with post surgical changes. G astrectomy demonstrated. There is no abnormal narrowing or suspicious filling defect identified allow ing for single contrast technique. No hiatal hernia is identified. IMPRESSION: Aside from mild esophageal dysmotility, likely age-related change, unremarkable esophagra m. No recurrent hiatal hernia. Status post sleeve gastrectomy.
[2021-08-16 20:29] LABS: % Iron Saturation 44.41 (12.00-45.00); Chol/HDL Ratio 2.85 Ratio; Iron 143 ug/dL (50-170); LDL Cholesterol,Calculated 112.9 mg/dL (0.0-131.0); Prealbumin 25.1 mg/dL (18.0-42.0); Total Iron Binding Capacity 322 ug/dL (228-460)
[2021-08-16 20:44] LABS: Folate, Serum >20.00 ng/mL (4.40-31.00)
[2021-08-19 13:27] LABS: Zinc, Serum 70 ug/dL (60-130)
[2021-08-20 06:42] LABS: Vitamin A 65 ug/dL (38-106)
[2021-08-20 16:51] LABS: Selenium 114 mcg/L (63-160)
[2021-08-21 07:11] LABS: Vit B1(Thiamine) 118 ug/L (38-122)
== END | disposition home or self-care (01) ==
LOC: RADUSWWP 09:48
PROVIDERS: ATTEND Surgery Plastic and Reconstructive Surgery
DX: K22.89 Other specified disease of esophagus (principal); D50.8 Other iron deficiency anemias; K90.89 Other intestinal malabsorption; E55.9 Vitamin D deficiency, unspecified; K74.1 Hepatic sclerosis
CPT/HCPCS: 74220; 80053; 80061; 82306; 82525; 82607; 82728; 82746; 83036; 83540; 83550; 83735; 83970; 84100; 84134; 84255; 84425; 84443; 84590; 84630; 85027; 85610; 85730

== ENCOUNTER → 2021-11-13 | Outpatient (CLI) | payer OTHER ==
--- NOTE | 2021-11-13 14:36 | P.BASOAP ---
Subjective Progress Note Date: 11/13/21 DATE OF SERVICE: 11/13/2021 CHIEF COMPLAINT: Status post sleeve gastrectomy HISTORY OF PRESENT ILLNESS: Spencer Juares is a 50-year-old status post sleeve gastrectomy, 11/12/2020. She is 1 year out. She comes in with weight gain. She denies gastroesophageal reflux disease. She is not keeping her food journal. No current troubles with her pannus. At her height of 5 foot 4.25 inches, her ideal body weight is 144 pounds. Her highest weight is 241 pounds, BMI 41.1. She comes in 152 pounds from 141 pounds, 3 months ago. She gained 11 pounds in 3 months. Body mass index is 26.1. Lifetime weight loss is 89 pounds. Her lifetime percent excess weight loss is 92 %. PAST MEDICAL HISTORY: 1. Morbid obesity due to excess calories 2. Body mass index 41.2, initial 3. Seasonal ALLERGIES. 4. Obstructive sleep apnea. 5. Osteoarthritis of the hips 6. Hypertensive heart disease. 7. Gastroesophageal reflux disease 8. Anxiety. 9. Depression. 10. Hyperlipidemia. 11. Degenerative joint disease. 12. Asthma. 13. Restless leg syndrome. 14. Osteoarthritis of the knees. PAST SURGICAL HISTORY: 1. Tubal Ligation 2. Uterine ablation. 3. Orthopedic procedure. 4. Upper endoscopy. 5. Cholecystectomy 6. Status post sleeve gastrectomy 7. Hiatal hernia repair HOME MEDICATIONS: Home Medications Medication Instructions Recorded Confirmed Sertraline [Zoloft] 100 mg PO BID 11/05/17 11/14/21 ALPRAZolam [Xanax] 0.25 mg PO TID PRN 05/29/19 11/14/21 Estrogen,Con/M-Progest Acet 1 tab PO DAILY 05/29/19 11/14/21 [Prempro 0.625-2.5 mg Tablet] rOPINIRole HCL [Requip] 2 mg PO HS 05/29/19 11/14/21 Cetirizine HCl [Zyrtec] 10 mg PO HS 11/07/20 11/14/21 Montelukast Sodium [Singulair] 10 mg PO HS 11/07/20 11/14/21 buPROPion HCL [Wellbutrin XL] 300 mg PO DAILY 02/10/21 02/17/22 Ergocalciferol (Vitamin D2) 1,250 mcg PO MO 01/23/21 11/14/21 [Vitamin D2 (50,000 Iu)] Previous Rx's Medication Instructions Recorded Acetaminophen Tab [Tylenol] 1,000 mg PO Q6HR PRN #30 tablet 11/13/20 Omeprazole [PriLOSEC] 40 mg PO DAILY #30 capsule. 11/13/20 metroNIDAZOLE [Flagyl] 500 mg PO TID #30 tab 01/28/21 Nystatin 100,000 Unit/gm Powd 1 applic TOPICAL BID #60 powder 05/08/21 [Mycostatin Powder] Lactulose [Cephulac] 30 gm PO DAILY #400 ml 08/07/21 ALLERGIES: Allergies Allergy/AdvReac Type Severity Reaction Status Date / Time No Known Allergies Allergy Verified 08/07/21 13:53 SOCIAL HISTORY: No active tobacco use. FAMILY HISTORY: No family history of ulcerative colitis disease or Crohn's disease. She does have a family history of morbid obesity. She denies any lupus in her family. No reports of stomach or esophageal cancer. REVIEW OF ORGAN SYSTEMS: CONSTITUTIONAL: Her present weight was 241 pounds. At her height of 5 foot 4.25 inches, her ideal body weight is 144 pounds. Her BMI was 41.1 HEENT: Denies any active troubles with hearing or vision. No troubles with swallowing. ENDOCRINE: No diabetes. No hypothyroidism. CARDIOVASCULAR: No reports of palpitations or heart attacks or chest pain. Has hypertension. Has hyperlipidemia. RESPIRATORY: Has daytime somnolence including snoring and sleep apnea. No asthma. Has seasonal ALLERGIES. GI: Denies any bright red blood per rectum or constipation. Does have gastroesophageal reflux disease. MUSCULOSKELETAL: Has lower back pain, left hip and right knee pain. No scoliosis. History of left heel spur. NEURO: Has headaches. No seizure disorders. PSYCH: Has depression without suicidal ideation. Has anxiety. RHEUMATOLOGIC: No lupus. No rheumatoid arthritis. HEMATOLOGIC: Denies any abnormal bleeding or bruising. No personal history of DVTs. SKIN: No rash. No skin cancer. PHYSICAL EXAM: VITAL SIGNS: Height 5 foot 4.25 inches, weight 141 pounds. BMI 24.0 Vital Signs Temp 98.1 F 08/07/21 13:37 Pulse 76 08/07/21 13:37 Resp BP 110/78 08/07/21 13:37 Pulse Ox GENERAL: Well-developed female in no acute distress. HEENT: No scleral icterus. Extraocular movements grossly intact. Hears conversational speech. No nasal drainage. NECK: Supple without lymphadenopathy. CHEST: Nonlabored respirations with equal bilateral excursions. CARDIOVASCULAR: Regular rate. Distal 2+ pulses. ABDOMEN: No peritonitis. No hernia.No active redness. MUSCULOSKELETAL: No clubbing, cyanosis. NEURO: No focal or lateralizing signs. Cranial nerves 2 through 12 grossly within normal limits. PSYCH: Appropriate affect. Alert and oriented to person, place and time. SKIN: Good skin turgor. Well perfused. STUDIES: Barium swallow independently reviewed without obstruction of her sleeve gastrectomy. This is my independent interpretation. REPORTS: Mild esophageal dysmotility. ASSESSMENT: 1. Morbid obesity due to excess calories 2. Body mass index 41.2 down to 26.1 3. Seasonal ALLERGIES. 4. Obstructive sleep apnea. 5. Osteoarthritis of the hips 6. Hypertensive heart disease. 7. Gastroesophageal reflux disease, resolved 8. Anxiety. 9. Depression. 10. Hyperlipidemia. 11. Degenerative joint disease. 12. Asthma. 13. Restless leg syndrome. 14. Family history of morbid obesity. 15. Diaphragmatic hiatal hernia. 16. Iron deficiency. 17. Status post sleeve gastrectomy 18. Thiamine deficiency 19. Copper excess. 20. Colon adenoma 21. Scattered diverticulosis 22. Colitis PLAN: 1. Recomend keeping a food diary journal. 2. Recommend increased activities. 3. Recommend bariatric labs including check TSH levels. 4. Second hand smoking avoidance reviewed. Assessment/Plan Plan: Date: Initial Weight: 105.885 kg Initial BMI: Current Weight: Current BMI: Type of Surgery: Total Volume in Band: Previous Volume: Volume Removed: Volume Added: Band Size:
[2021-11-13 17:02] VITALS: BP 128/78; PULSE 64; TEMP 98; BMI 26.1
== END ==
LOC: BARWHC3 13:24
PROVIDERS: ATTEND Surgery Plastic and Reconstructive Surgery
DX: E66.01 Morbid (severe) obesity due to excess calories (principal); Z68.26 Body mass index [BMI] 26.0-26.9, adult; G47.33 Obstructive sleep apnea (adult) (pediatric); M16.0 Bilateral primary osteoarthritis of hip; I11.9 Hypertensive heart disease without heart failure; K21.9 Gastro-esophageal reflux disease without esophagitis; F41.9 Anxiety disorder, unspecified; F32.A Depression, unspecified; E78.5 Hyperlipidemia, unspecified; M19.90 Unspecified osteoarthritis, unspecified site; J45.909 Unspecified asthma, uncomplicated; G25.81 Restless legs syndrome; K44.9 Diaphragmatic hernia without obstruction or gangrene; Z83.49 Family history of other endocrine, nutritional and metabolic diseases; E61.1 Iron deficiency; Z98.84 Bariatric surgery status; E51.9 Thiamine deficiency, unspecified; E83.00 Disorder of copper metabolism, unspecified; D12.6 Benign neoplasm of colon, unspecified; K57.90 Diverticulosis of intestine, part unspecified, without perforation or abscess without bleeding
CPT/HCPCS: 99211

== ENCOUNTER → 2021-12-05 | Outpatient (CLI) | payer OTHER ==
[2021-12-05 11:25] LABS: INR 0.8 (<1.2); Prothrombin Time 9.5 sec (9.0-12.0)
[2021-12-05 11:26] LABS: Partial Thromboplastin Time 21.3 sec (22.0-30.0)
[2021-12-05 15:05] LABS: HCT 39.5 % (37.2-46.3); HGB 12.7 g/dL (12.0-15.0); MCH 30.2 pg (27.0-32.0); MCHC 32.2 g/dL (32.0-37.0); MCV 93.8 fL (80.0-97.0); Mean Platelet Volume 10.5 fL (9.5-12.2); NRBC Per 100 WBC 0 /100 WBCS (0.0-0.0); Platelet Count 241 X 10*3/uL (140-440); RBC 4.21 X 10*6/uL (4.10-5.20); WBC 6.22 X 10*3/uL (4.50-10.00)
[2021-12-05 16:03] LABS: Chol/HDL Ratio 2.55 Ratio; LDL Cholesterol,Calculated 125.3 mg/dL (0.0-131.0); Prealbumin 27.4 mg/dL (18.0-42.0)
[2021-12-05 16:22] LABS: % Iron Saturation 16.88 (12.00-45.00); ALT 11 U/L (8-44); AST 14 U/L (13-35); African American GFR (CKD) 98.2 (60.0-200.0); Albumin 4.3 g/dL (3.8-4.9); Albumin/Globulin Ratio 2.05 (1.60-3.17); Alkaline Phosphatase 82 U/L (41-126); BUN/Creat Ratio 22.63 Ratio (12.00-20.00); Blood Urea Nitrogen 18.1 mg/dL (9.0-27.0); Calcium 9.3 mg/dL (8.7-10.3); Carbon Dioxide 26.3 mmol/L (20.0-27.5); Chloride 103 mmol/L (96-109); Ferritin 79.9 ng/mL (10.0-291.0); Globulin 2.1 g/dL (1.6-3.3); Glucose 95 mg/dL (70-110); Iron 67 ug/dL (50-170); Magnesium 2.6 mg/dL (1.5-2.4); Non-African American GFR(CKD) 84.8 (60.0-200.0); Potassium 4.2 mmol/L (3.5-5.5); Sodium 140 mmol/L (135-145); Total Iron Binding Capacity 398 ug/dL (228-460); Total Protein 6.4 g/dL (6.2-8.2)
[2021-12-06 14:35] LABS: Zinc, Serum 52 ug/dL (60-130)
== END | disposition home or self-care (01) ==
LOC: LABWHC1 10:44
PROVIDERS: ATTEND Surgery Plastic and Reconstructive Surgery
DX: E89.1 Postprocedural hypoinsulinemia (principal); E44.0 Moderate protein-calorie malnutrition; E45 Retarded development following protein-calorie malnutrition; E66.01 Morbid (severe) obesity due to excess calories; E55.9 Vitamin D deficiency, unspecified; K74.1 Hepatic sclerosis; D50.8 Other iron deficiency anemias; N19 Unspecified kidney failure; K50.90 Crohn's disease, unspecified, without complications
CPT/HCPCS: 36415; 80053; 80061; 82306; 82525; 82607; 82728; 82746; 83036; 83540; 83550; 83735; 83970; 84100; 84134; 84255; 84425; 84443; 84590; 84630; 85027; 85610; 85730

== ENCOUNTER → 2022-03-25 | Outpatient (CLI) | payer OTHER ==
[2022-03-25 18:01] LABS: Basophils # (A) 0.05 X 10*3/uL (0.00-0.10); Basophils % (A) 0.7 %; Eosinophils # (A) 0.28 X 10*3/uL (0.04-0.35); Eosinophils % (A) 3.9 %; HCT 39.9 % (37.2-46.3); HGB 12.9 g/dL (12.0-15.0); Immature Grans, Automated 0.3 %; Lymphocytes # (A) 1.98 X 10*3/uL (0.90-5.00); Lymphocytes % (A) 27.8 %; MCH 29.5 pg (27.0-32.0); MCHC 32.3 g/dL (32.0-37.0); MCV 91.1 fL (80.0-97.0); Mean Platelet Volume 11.4 fL (9.5-12.2); Monocytes # (A) 0.41 X 10*3/uL (0.20-1.00); Monocytes % (A) 5.8 %; NRBC Per 100 WBC 0 /100 WBCS (0.0-0.0); Neutrophils # (A) 4.37 X 10*3/uL (1.80-7.70); Neutrophils % (A) 61.5 %; Platelet Count 248 X 10*3/uL (140-440); RBC 4.38 X 10*6/uL (4.10-5.20); RDW 11.7 % (11.5-14.5); WBC 7.11 X 10*3/uL (4.50-10.00)
[2022-03-25 18:11] LABS: African American GFR (CKD) 85.2 (60.0-200.0); Anion Gap 9.7 mmol/L (10.00-18.00); BUN/Creat Ratio 20.11 Ratio (12.00-20.00); Blood Urea Nitrogen 18.1 mg/dL (9.0-27.0); Calcium 8.9 mg/dL (8.7-10.3); Carbon Dioxide 27.3 mmol/L (20.0-27.5); Non-African American GFR(CKD) 73.5 (60.0-200.0); Potassium 4.1 mmol/L (3.5-5.5)
== END | disposition home or self-care (01) ==
LOC: LABPAT 13:30
PROVIDERS: ATTEND Orthopaedic Surgery Hand Surgery
DX: Z01.812 Encounter for preprocedural laboratory examination (principal); M13.841 Other specified arthritis, right hand
CPT/HCPCS: 80048; 85025; 93005

== ENCOUNTER 2022-04-02 07:26 | Day surgery (SDC) | payer OTHER ==
[2022-03-27 12:38] VITALS: BMI 28.0
--- NOTE | 2022-04-01 11:07 | P.HPOR ---
History of Present Illness H&P Date: 04/01/22 Chief Complaint: Right thumb CMC arthritis Subjective: This is a 51 year old female that presents today for follow up evaluation regarding a 1 year history of worsening right thumb pain located mainly at the base of the thumb. She notices increased pain and weakness with pinching and grasping activities. She has tried voltaran gel with minimal relief. She states the thumb CMC injection performed at the last visit helped for a few weeks but her symptoms then returned. She denies any paresthesias or prior injury. Physical Examination: RUE: AIN/PIN/Radial/Ulnar/Median motor intact. Radial/Ulnar/Median SILT. 2+/4 R adial/Ulnar pulses palpated. 5/5 APB, 5/5 FDI. Negative Finkelsteins, positive CMC grind, negative Durkan's compression. Imaging: X-Rays of the right thumb demonstrate advanced degenerative changes at the thumb CMC joint. Impression: 1.) Right thumb CMC arthritis Plan: Diagnosis and treatment options were discussed with the patient. Details regarding thumb CMC arthroplasty were discussed and she states she would like to go forward with surgery. Risks and benefits of surgery including bleeding, infection, damage to surrounding tissue, need for further surgery, numbness were discussed and she was agreeable and understanding. She will be scheduled for a right thumb CMC tendon transfer arthroplasty in the near future. -Steven Forbes DO Orthopedic Hand/Upper Extremity Surgeon Past Medical History Past Medical History: GERD/Reflux, Osteoarthritis (OA) Additional Past Medical History / Comment(s): Neuropathy. History of Any Multi-Drug Resistant Organisms: None Reported Past Surgical History: Bariatric Surgery, Cholecystectomy, Orthopedic Surgery, Tubal Ligation, Uterine Ablation Additional Past Surgical History / Comment(s): Bilateral knee arthroscopy, hiatal hernia surgery, cyst in groin area removed, Gastric Sleeve Oct 2020, Colonoscopy. Past Anesthesia/Blood Transfusion Reactions: Previous Problems w/ Anesthesia Additional Past Anesthesia/Blood Transfusion Reaction / Comment(s): With Anesthesia for lesion on cyst in groin area feet curled lateral, high BP and shaking. Never had a problem with anesthesia from [facility] since this incident. Smoking Status: Never smoker - Past Family History Mother Family Medical History: Cancer Father Family Medical History: Cancer Brother(s) Family Medical History: Cancer Medications and Allergies Home Medications Medication Instructions Recorded Confirmed Type Sertraline [Zoloft] 100 mg PO BID 11/05/17 03/27/22 History ALPRAZolam [Xanax] 0.25 mg PO TID PRN 05/29/19 03/27/22 History Estrogen,Con/M-Progest Acet 1 tab PO DAILY 05/29/19 03/27/22 History [Prempro 0.625-2.5 mg Tablet] rOPINIRole HCL [Requip] 2 mg PO HS 05/29/19 03/27/22 History Cetirizine HCl [Zyrtec] 10 mg PO HS 11/07/20 03/27/22 History buPROPion HCL [Wellbutrin XL] 300 mg PO DAILY 11/07/20 03/27/22 History Acetaminophen Tab [Tylenol] 1,000 mg PO Q6HR PRN #30 tablet 11/13/20 03/27/22 Rx Omeprazole [PriLOSEC] 40 mg PO DAILY #30 capsule. 11/13/20 03/27/22 Rx Ergocalciferol (Vitamin D2) 1,250 mcg PO MO 01/23/21 03/27/22 History [Vitamin D2 (50,000 Iu)] Allergies Allergy/AdvReac Type Severity Reaction Status Date / Time No Known Allergies Allergy Verified 03/27/22 12:28 Physical Examination Osteopathic Statement: *. No significant issues noted on an osteopathic structural exam other than those noted in the History and Physical/Consult.
[~2022-04-02 07:26] MED LIST changes: +DEXAMETHASONE SOD PHOSPHATE 4 MG/ML 1 ML VIAL IV ONE; +HYDROmorphone 0.5 MG/0.5 ML SYRINGE IVP PRN; -LIDOCAINE 1% (10MG/ML) FOR IV START INTRADERMA PRN; +MIDAZOLAM 2 MG/2 ML VIAL IV PRN; +ONDANSETRON 4 MG/2 ML VIAL IVP ONE; +SCOPOLAMINE 1 MG/72 HR PATCH TRANSDERM ONE
[2022-04-02 08:11] VITALS: TEMP 98.3
[2022-04-02] MEDS ORDERED: MIDAZOLAM 2 MG/2 ML VIAL IVP ONE (08:40)
[2022-04-02] MEDS ORDERED: fentaNYL (PF) 50 MCG/ML 2 ML AMP IVP ONE (08:40)
[2022-04-02] MEDS ORDERED: SODIUM CHLORIDE 0.9% (PF) 10 ML VIAL ONE (08:56)
[2022-04-02] MEDS ORDERED: LIDOCAINE 2% INJ 20 MG/ML (2 ML VIAL) ONE (08:56)
[2022-04-02] MEDS ORDERED: PROPOFOL 10 MG/ML 20 ML VIAL IV ONE (08:56)
[2022-04-02] MEDS ORDERED: ROPIVACAINE 5 MG/ML 30 ML VIAL ONE (08:56)
[2022-04-02] MEDS ORDERED: fentaNYL (PF) 50 MCG/ML 2 ML AMP ONE (08:56)
[2022-04-02] MEDS ORDERED: MIDAZOLAM 2 MG/2 ML VIAL ONE (08:56)
--- NOTE | 2022-04-02 10:17 | P.ANPRN ---
Procedure Note - Anesthesia - Nerve Block Performed Right Axillary Single Time Out Performed: Yes ([id number]) Date of Procedure: 04/02/22 Procedure Start Time: 08:40 Procedure Stop Time: 08:46 Location of Patient: PreOp Indication: Acute Post-Operative Pain, Requested by Surgeon Specifically requested for management of pain by DrRhea: Steven Forbes Sedation Type: Sedate with meaningful contact maintained Preparation: Sterile Prep Position: Supine Catheter: None Needle Types: Pajunk Needle Gauge: 21 Ultrasound used to visualize needle placement: Yes Ultrasound used to observe medication spread: Yes Injectate: 0.5% Ropivacaine (see comment for volume) (15cc + 5cc nacl) Blood Aspirated: No Pain Paresthesia on Injection Noted: No Resistance on Injection: Normal Image Stored and Saved: Yes Events: Uneventful and Well Tolerated
[2022-04-02 10:36] VITALS: BP 138/82; PULSE 76; RESP 16
--- NOTE | 2022-04-02 13:34 | P.OP ---
Date of Procedure: 04/02/22 Preoperative Diagnosis: Right thumb CMC arthritis Postoperative Diagnosis: Right thumb CMC arthritis Procedure(s) Performed: 1.) Right thumb CMC tendon transfer arthroplasty with trapezium resection. Implants: Arthrex 3.5mm Swivel lock anchors x2 Anesthesia: MAC, regional Surgeon: Steven Forbes Trestle Builder #1: Vernon Thompson Estimated Blood Loss (ml): 0 Pathology: none sent Condition: stable Disposition: PACU Description of Procedure: This is a 51 year old female who presents today for a right thumb CMC tendon transfer arthroplasty after having failed conservative treatment for severe thumb CMC arthritis. Risks and benefits of surgery were discussed with the patient including bleeding, damage to surrounding tissue, infection, need for further surgery as well as risks of anesthesia including pulmonary embolism and even and the patient wished to proceed with surgical intervention. The patients was seen in the pre-operative area by myself. Consent and H&P were completed and updated. The correct extremity was marked in the pre-operative area by myself and all other questions were answered. Patient received a upper extremity nerve block by the department of anesthesia. He then was brought to the operating room by the department of anesthesia. They remained on the portable stretcher and a rolling hand table was brought to the side of the operative extremity. The patient was then drifted off to sleep by the department of anesthesia. A nonsterile tourniquet was then applied to the operative extremity and the right upper extremity was then prepped and draped in normal sterile fashion. Pre-operative time out was performed indicating the correct patient, procedure and laterality. All in the room agreed. Pre-operative antibiotics were given prior to skin incision. The operative extremity was the exsanguinated with an esmarch bandage and the tourniquet was inflated to 250mmHg. Longitudinal incision was made over the left thumb CMC joint with a 15 blade scalpel. Blunt dissection was taken down to subcutaneous tissues with littler scissors taking care to preserve the branches of the superficial radial nerve. Dorsal radial artery was identified proximally in the incision and protected throughout the procedure. Scalpel was then made to incise the thumb CMC joint creating full thickness flaps off of the proximal metacarpal base and trapezium, this plane was further developed with a periosteal elevator. Elevator was then utilized to identify the thumb CMC joint and scaphotrapezial joint. McGlamory elevator was then used to excise the trapezium whole. Guidewire was then introduced down to the laser line at the base of the first metacarpal through the same incision and was over drilled with gold drill guide to prepare for APL graft. Another guidewire was then inserted at the radial base of the first metacarpal near the Insertion of APL and was then over drilled with normal drill guide. A 2-3mm wide slip of APL was then harvested and incised proximally and reflected distally keeping its attachment at the base of the first metacarpal. The slip of APL was captured with a 3-0 looped fiberwire suture. A 3.5mm Arthrex SwiveLock anchor was then inserted into the base of the first metacarpal. Another 3.5mm Arthrex SwiveLock anchor was inserted into the base of the second metacarpal with the thumb in slight traction and adduction while capturing the APL graft and two strands of fibertape center across the first metacarpal base to create a sling around the base suspending the thumb metacarpal, good jett purchase was appreciated. The thumb was successfully suspended and full ROM was achieved passively. Suture and graft ends were cut and skin was closed with several interrupted 4-0 Monocryl sutures followed by a running 4-0 Monocryl stitch. Sterile dressing consisting of mastisol and steri strips followed by 4x4s cast padding, and a thumb spica plaster splint was applied. Tourniquet was let down and the hand had brisk cap refill and normal perfusion immediately. The patient was then woken by the department of anesthesia and transferred to PACU in stable condition. Vernon DAVIS was present for the case and assisted in major portions of procedure and protection of vital neurovascular structures. Steven Forbes D.O. Orthopedic Hand/Upper Extremity Surgeon
== END 2022-04-02 11:30 | disposition home or self-care (01) ==
LOC: OR 07:26
PROVIDERS: ATTEND Orthopaedic Surgery Hand Surgery
DX: M18.11 Unilateral primary osteoarthritis of first carpometacarpal joint, right hand (principal); G89.18 Other acute postprocedural pain; G62.9 Polyneuropathy, unspecified; K21.9 Gastro-esophageal reflux disease without esophagitis; Z79.899 Other long term (current) drug therapy; Z79.890 Hormone replacement therapy; Z80.9 Family history of malignant neoplasm, unspecified
CPT/HCPCS: 64415; 76942; 25447; 26483; C1713; J2250; J1100; J2405; J0690; J3010; J2795; J2704; J2001

== ENCOUNTER → 2023-08-13 | Outpatient (CLI) | payer MEDICAID, OTHER ==
[2023-08-13 17:06] LABS: INR 0.8 (<1.2); Prothrombin Time 9.5 sec (10.0-12.5)
[2023-08-13 17:15] LABS: Partial Thromboplastin Time 21.6 sec (22.0-30.0)
[2023-08-14 02:37] LABS: HCT 41.8 % (37.2-46.3); HGB 13.3 g/dL (12.0-15.0); MCH 29.8 pg (27.0-32.0); MCHC 31.8 g/dL (32.0-37.0); MCV 93.7 FL (80.0-97.0); Mean Platelet Volume 10.9 FL (9.5-12.2); NRBC Per 100 WBC 0 X 10*3/uL (0.00-0.01); Platelet Count 246 X 10*3/uL (140-440); RBC 4.46 X 10*6/uL (4.10-5.20); RDW 11.9 % (11.5-14.5); WBC 7.34 X 10*3/uL (4.50-10.00)
[2023-08-14 02:49] LABS: Chol/HDL Ratio 2.48 Ratio; LDL Cholesterol,Calculated 128.8 mg/dL (0.0-131.0); Magnesium 2.3 mg/dL (1.5-2.4); Phosphorus 3.1 mg/dL (2.4-5.1); VLDL Calculation 19.16 mg/dL (5.00-40.00)
[2023-08-14 02:50] LABS: % Iron Saturation 12.44 (12.00-45.00); ALT 14 U/L (8-44); AST 21 U/L (13-35); Albumin 4.3 g/dL (3.8-4.9); Albumin/Globulin Ratio 1.87 Ratio (1.60-3.17); Alkaline Phosphatase 91 U/L (41-126); Blood Urea Nitrogen 22.5 mg/dL (9.0-27.0); Calcium 9.7 mg/dL (8.7-10.3); Carbon Dioxide 26.5 mmol/L (21.6-31.8); Chloride 103 mmol/L (96-109); Ferritin 43.2 ng/mL (10.0-291.0); Globulin 2.3 g/dL (1.6-3.3); Glucose 93 mg/dL (70-110); Iron 53 UG/DL (50-170); Sodium 140 mmol/L (135-145); Total Bilirubin 0.2 mg/dL (0.3-1.2); Total Iron Binding Capacity 426 UG/DL (228-460); Total Protein 6.6 g/dL (6.2-8.2)
[2023-08-14 04:26] LABS: Prealbumin 27.8 mg/dL (18.0-42.0)
[2023-08-14 12:54] LABS: Zinc, Serum 89 ug/dL (60-130)
[2023-08-15 07:01] LABS: Vitamin A 84 ug/dL (38-106)
[2023-08-15 07:08] LABS: Vit B1(Thiamine) 74 ug/L (38-122)
== END | disposition home or self-care (01) ==
LOC: LABWHC1 07-22 08:32
PROVIDERS: ATTEND Surgery Plastic and Reconstructive Surgery
DX: E66.01 Morbid (severe) obesity due to excess calories (principal); D50.8 Other iron deficiency anemias; E89.1 Postprocedural hypoinsulinemia; K91.2 Postsurgical malabsorption, not elsewhere classified; E44.0 Moderate protein-calorie malnutrition; E55.9 Vitamin D deficiency, unspecified; K74.1 Hepatic sclerosis; N19 Unspecified kidney failure; E44.1 Mild protein-calorie malnutrition; E45 Retarded development following protein-calorie malnutrition; E46 Unspecified protein-calorie malnutrition; T56.894A Toxic effect of other metals, undetermined, initial encounter; K50.90 Crohn's disease, unspecified, without complications
CPT/HCPCS: 36415; 80053; 80061; 82306; 82525; 82607; 82728; 82746; 83036; 83540; 83550; 83735; 83970; 84100; 84134; 84255; 84425; 84443; 84590; 84630; 85027; 85610; 85730

== ENCOUNTER → 2023-09-14 | Day surgery (SDC) | payer MEDICAID, OTHER ==
[2023-09-09 11:31] VITALS: BMI 29.2
[~2023-09-14] MED LIST changes: -DEXAMETHASONE SOD PHOSPHATE 4 MG/ML 1 ML VIAL IV ONE; -HYDROmorphone 0.5 MG/0.5 ML SYRINGE IVP PRN; +LIDOCAINE 1% (10MG/ML) FOR IV START INTRADERMA PRN; +LIDOCAINE 1% INJ 10MG/ML (20 ML MDV) ONE; -MIDAZOLAM 2 MG/2 ML VIAL IV PRN; -ONDANSETRON 4 MG/2 ML VIAL IVP ONE; +PROPOFOL 10 MG/ML 20 ML VIAL IV ONE; -SCOPOLAMINE 1 MG/72 HR PATCH TRANSDERM ONE
--- NOTE | 2023-09-14 10:11 | P.GSHP ---
History of Present Illness H&P Date: 09/14/23 CHIEF COMPLAINT: GERD and colon screen HISTORY OF PRESENT ILLNESS: The patient is a 53-year-old female who presents with gastroesophageal reflux disease and need for colon screen. Upper and lower endoscopy were offered for further evaluation and management. PAST MEDICAL HISTORY: Please see list. PAST SURGICAL HISTORY: Please see list. MEDICATIONS: Please see list. ALLERGIES: Please see list. SOCIAL HISTORY: No illicit drug use FAMILY HISTORY: No reports of Crohn disease or ulcerative colitis. REVIEW OF ORGAN SYSTEMS: CONSTITUTIONAL: No reports of fevers or chills. GI: Denies any blood in stools or constipation. PHYSICAL EXAM: VITAL SIGNS: Stable GENERAL: Well-developed pleasant in no acute distress. HEENT: No scleral icterus. Extraocular movements grossly intact. Moist buccal mucosa. NECK: Supple without lymphadenopathy. CHEST: Unlabored respirations. Equal bilateral excursions. CARDIOVASCULAR: Regular rate and rhythm. Distal 2+ pulses. ABDOMEN: Soft, nondistended. MUSCULOSKELETAL: No clubbing, cyanosis, or edema. ASSESSMENT: 1. Gastroesophageal reflux disease 2. Colon screen. PLAN: 1. Recommend proceeding with an upper and lower endoscopy Past Medical History Past Medical History: GERD/Reflux, Osteoarthritis (OA) Additional Past Medical History / Comment(s): Neuropathy. CONSTIPATION AND DIARRHEA WITH BLOOD IN STOOL History of Any Multi-Drug Resistant Organisms: None Reported Past Surgical History: Bariatric Surgery, Cholecystectomy, Orthopedic Surgery, Tubal Ligation, Uterine Ablation Additional Past Surgical History / Comment(s): Bilateral knee arthroscopy, hiatal hernia surgery, cyst in groin area removed, Gastric Sleeve Oct 2020, Colonoscopy., RT THUMB SX-04/02/2022 Past Anesthesia/Blood Transfusion Reactions: Previous Problems w/ Anesthesia Additional Past Anesthesia/Blood Transfusion Reaction / Comment(s): With Anesthesia for lesion on cyst in groin area feet curled lateral, high BP and shaking. Never had a problem with anesthesia from [facility] since this incident. Smoking Status: Never smoker - Past Family History Mother Family Medical History: Cancer Father Family Medical History: Cancer Brother(s) Family Medical History: Cancer Medications and Allergies Home Medications Medication Instructions Recorded Confirmed Type Sertraline [Zoloft] 100 mg PO BID 11/05/17 09/09/23 History ALPRAZolam [Xanax] 0.25 mg PO TID PRN 05/29/19 09/09/23 History Estrogen,Con/M-Progest Acet 1 tab PO DAILY 05/29/19 09/09/23 History [Prempro 0.625-2.5 mg Tablet] rOPINIRole HCL [Requip] 2 mg PO HS 05/29/19 09/09/23 History Cetirizine HCl [Zyrtec] 10 mg PO HS 11/07/20 09/09/23 History buPROPion HCL [Wellbutrin XL] 300 mg PO DAILY 11/07/20 09/09/23 History Acetaminophen Tab [Tylenol] 1,000 mg PO Q6HR PRN #30 tablet 11/13/20 09/09/23 Rx Omeprazole [PriLOSEC] 40 mg PO DAILY #30 capsule. 11/13/20 09/09/23 Rx Ergocalciferol (Vitamin D2) 1,250 mcg PO MO 01/23/21 09/09/23 History [Vitamin D2 (50,000 Iu)] Calcium Carbonate [Calcium] 600 mg PO DAILY 09/09/23 09/09/23 History Multivit with Calcium,Iron,Min 1 each PO DAILY 09/09/23 09/09/23 History [Women's Multivitamin] Allergies Allergy/AdvReac Type Severity Reaction Status Date / Time No Known Allergies Allergy Verified 04/02/22 08:24
[2023-09-14 10:40] VITALS: RESP 16; TEMP 98.1
--- NOTE | 2023-09-14 11:27 | P.PCN ---
Date of Procedure: 09/14/23 Description of Procedure: PREOPERATIVE DIAGNOSIS: Gastroesophageal reflux disease. Status post sleeve gastrectomy. Epigastric abdominal pain. POSTOPERATIVE DIAGNOSIS: Erosive esophagitis, chronic. Diaphragmatic hiatal hernia without obstruction. Chronic superficial gastritis. OPERATION: Esophagogastroduodenoscopy with cold forceps biopsies along the antrum, esophagus, duodenum. SURGEON: Renetta Bower MD ANESTHESIA: MAC. INDICATIONS: The patient is a 53-year-old female who presents with gastric esophageal reflux disease and a history of sleeve gastrectomy with abdominal pain. She is over 4 years out from her bariatric procedure. Benefits and risks of the procedure were described. Informed consent was obtained. DESCRIPTION: The patient was brought into the endoscopy suite and laid in the left lateral decubitus position. An Olympus gastroscope was passed along the posterior oropharynx down to the distal esophagus where the squamocolumnar junction was at 37 centimeters from the incisors remarkable for chronic erosive esophagitis, LA grade A without ulceration. The stomach was entered where she had a 3-cm hiatal hernia with a diaphragmatic hiatus found at 40 cm. The sleeve reservoir was within normal limits. Chronic gastritis was found along the antrum with cold biopsies obtained. The first through third portion of the duodenum was examined with cold forceps biopsies obtained of the esophagus, stomach, duodenum. The scope again had easily retroflexed along the antrum. The stomach was desufflated. The patient tolerated the procedure well. FINDINGS: No acute ulceration found along her sleeve. No corkscrewing sleeve gastrectomy. Squamocolumnar junction at 37 cm from the incisors. Diaphragmatic hiatus at 40 cm. Hiatal hernia 3 cm, fixed. LA grade B erosive esophagitis. Cold forceps biopsies obtained of the esophagus, stomach, duodenum. Chronic gastritis. RECOMMENDATIONS: Upper endoscopy as needed. Continue with current therapy.
--- NOTE | 2023-09-14 11:31 | P.PCN ---
Date of Procedure: 09/14/23 Description of Procedure: PREOPERATIVE DIAGNOSIS: Abnormal stool function Change in bowel habits POSTOPERATIVE DIAGNOSIS: Microscopic colitis OPERATION: Colonoscopy to the cecum, ileocecal valve and appendiceal orifice. Colonoscopy with random cold forceps biopsies for microscopic colitis SURGEON: Renetta Bower MD. ANESTHESIA: MAC. INDICATIONS: The patient is a 53-year-old female who presents with altered stools including change in bowel habits. Benefits and risks were described and informed consent was obtained. DESCRIPTION OF PROCEDURE: The patient had undergone Suprep. The patient had been brought into the operating room and laid in the left lateral decubitus position. After adequate intravenous sedation, the rectum was examined with 2% lidocaine jelly. No external hemorrhoids were encountered. The rectal tone was within normal limits. No lesions were palpated in the rectal vault. An Olympus colonoscope was advanced until the cecum, ileocecal valve and appendiceal orifice were clearly viewed. The prep was excellent. No scattered diverticulosis was encountered. No colonic polyps were found. Cold forceps biopsies randomly were obtained for microscopic colitis. No arteriovenous malformation hepatic flexure administered Retroflexion of the scope demonstrated grade 1 internal hemorrhoids without active bleeding or inflammation. The colon was desufflated. The patient had tolerated the procedure well. Withdrawal time was over 6 minutes. FINDINGS: Aronchick preparation quality scale 1 (1-5) Internal hemorrhoids, grade 1 No external prolapsed hemorrhoids. Arteriovenous malformation, 4 mm, hepatic flexure No adenomatous polyps. Cold forceps biopsies obtained for microscopic colitis RECOMMENDATIONS: Lower endoscopy in 5 years, 2027 Plan - Discharge Summary Discharge Rx Participant: Yes New Discharge Prescriptions: Continue Sertraline [Zoloft] 100 mg PO BID ALPRAZolam [Xanax] 0.25 mg PO TID PRN PRN Reason: Anxiety Estrogen,Con/M-Progest Acet [Prempro 0.625-2.5 mg Tablet] 1 tab PO DAILY rOPINIRole HCL [Requip] 2 mg PO HS Cetirizine HCl [Zyrtec] 10 mg PO HS buPROPion HCL [Wellbutrin XL] 300 mg PO DAILY Omeprazole [PriLOSEC] 40 mg PO DAILY #30 capsule. Acetaminophen Tab [Tylenol] 1,000 mg PO Q6HR PRN #30 tablet PRN Reason: Pain Ergocalciferol (Vitamin D2) [Vitamin D2 (50,000 Iu)] 1,250 mcg PO MO Calcium Carbonate [Calcium] 600 mg PO DAILY Multivit with Calcium,Iron,Min [Women's Multivitamin] 1 each PO DAILY Discharge Medication List Sertraline [Zoloft] 100 mg PO BID 11/05/17 [History] ALPRAZolam [Xanax] 0.25 mg PO TID PRN 05/29/19 [History] Estrogen,Con/M-Progest Acet [Prempro 0.625-2.5 mg Tablet] 1 tab PO DAILY 05/29/19 [History] rOPINIRole HCL [Requip] 2 mg PO HS 05/29/19 [History] Cetirizine HCl [Zyrtec] 10 mg PO HS 11/07/20 [History] buPROPion HCL [Wellbutrin XL] 300 mg PO DAILY 11/07/20 [History] Acetaminophen Tab [Tylenol] 1,000 mg PO Q6HR PRN #30 tablet 11/13/20 [Rx] Omeprazole [PriLOSEC] 40 mg PO DAILY #30 capsule. 11/13/20 [Rx] Ergocalciferol (Vitamin D2) [Vitamin D2 (50,000 Iu)] 1,250 mcg PO MO 01/23/21 [History] Calcium Carbonate [Calcium] 600 mg PO DAILY 09/09/23 [History] Multivit with Calcium,Iron,Min [Women's Multivitamin] 1 each PO DAILY 09/09/23 [History] [facility] [facility] [place] [place] [facility] [place]23 Patient Instructions/Handouts: Gastritis (DC), GERD (Gastroesophageal Reflux Disease) (DC) Discharge Disposition: HOME SELF-CARE
[2023-09-14 12:17] VITALS: BP 132/81; PULSE 78
== END | disposition home or self-care (01) ==
LOC: ORWHC2ENDO 10:14
PROVIDERS: ATTEND Surgery Plastic and Reconstructive Surgery
DX: K29.50 Unspecified chronic gastritis without bleeding (principal); K31.89 Other diseases of stomach and duodenum; R19.4 Change in bowel habit; K21.9 Gastro-esophageal reflux disease without esophagitis; K44.9 Diaphragmatic hernia without obstruction or gangrene; K22.10 Ulcer of esophagus without bleeding; M19.90 Unspecified osteoarthritis, unspecified site; Z79.899 Other long term (current) drug therapy; Z90.49 Acquired absence of other specified parts of digestive tract; Z98.84 Bariatric surgery status
CPT/HCPCS: 88305; 88342; 45380; 43239; J2001; J2704

== ENCOUNTER → 2023-10-07 | Outpatient (CLI) | payer MEDICAID, OTHER ==
--- NOTE | 2023-10-07 16:55 | P.BASOAP ---
Subjective Progress Note Date: 10/07/23 DATE OF SERVICE: 10/07/23 CHIEF COMPLAINT: Status post sleeve gastrectomy HISTORY OF PRESENT ILLNESS: Spencer Juares is a 53-year-old status post sleeve gastrectomy, 11/12/2020. She is 3 years out. She had a chronic diarrhea and reported abdominal pain. Since her endoscopy, she reports she is doing well. She had epigastric abdominal pain. At her height of 5 foot 4.25 inches, her ideal body weight is 144 pounds. Her highest weight is 241 pounds, BMI 41.1. She comes in 174 pounds from 152 pounds, 2 years ago. She gained 22 pounds in 2 years. Body mass index is 29.9. Lifetime weight loss is 67 pounds. Her lifetime percent excess weight loss is 69 %. PAST MEDICAL HISTORY: 1. Morbid obesity due to excess calories 2. Body mass index 41.2, initial 3. Seasonal ALLERGIES. 4. Obstructive sleep apnea. 5. Osteoarthritis of the hips 6. Hypertensive heart disease. 7. Gastroesophageal reflux disease 8. Anxiety. 9. Depression. 10. Hyperlipidemia. 11. Degenerative joint disease. 12. Asthma. 13. Restless leg syndrome. 14. Osteoarthritis of the knees. PAST SURGICAL HISTORY: 1. Tubal Ligation 2. Uterine ablation. 3. Orthopedic procedure. 4. Upper endoscopy. 5. Cholecystectomy 6. Status post sleeve gastrectomy 7. Hiatal hernia repair HOME MEDICATIONS: Home Medications Medication Instructions Recorded Confirmed Sertraline [Zoloft] 100 mg PO BID 11/05/17 10/07/23 ALPRAZolam [Xanax] 0.25 mg PO TID PRN 05/29/19 10/07/23 Estrogen,Con/M-Progest Acet 1 tab PO DAILY 05/29/19 10/07/23 [Prempro 0.625-2.5 mg Tablet] rOPINIRole HCL [Requip] 2 mg PO HS 05/29/19 10/07/23 Cetirizine HCl [Zyrtec] 10 mg PO HS 11/07/20 10/07/23 buPROPion HCL [Wellbutrin XL] 300 mg PO DAILY 11/07/20 10/07/23 Ergocalciferol (Vitamin D2) 1,250 mcg PO MO 01/23/21 10/07/23 [Vitamin D2 (50,000 Iu)] Calcium Carbonate [Calcium] 600 mg PO DAILY 09/09/23 10/07/23 Multivit with Calcium,Iron,Min 1 each PO DAILY 09/09/23 10/07/23 [Women's Multivitamin] Cyanocobalamin (Vitamin B-12) 1,000 mcg PO DAILY 10/07/23 10/07/23 [Vitamin B-12] Psyllium Husk [Fiber Capsule] 0.4 gm PO DAILY 10/07/23 10/07/23 Previous Rx's Medication Instructions Recorded Acetaminophen Tab [Tylenol] 1,000 mg PO Q6HR PRN #30 tablet 11/13/20 Omeprazole [PriLOSEC] 40 mg PO DAILY #30 capsule. 11/13/20 ALLERGIES: Allergies Allergy/AdvReac Type Severity Reaction Status Date / Time No Known Allergies Allergy Verified 09/14/23 10:24 SOCIAL HISTORY: No active tobacco use. FAMILY HISTORY: No family history of ulcerative colitis disease or Crohn's disease. She does have a family history of morbid obesity. She denies any lupus in her family. No reports of stomach or esophageal cancer. REVIEW OF ORGAN SYSTEMS: CONSTITUTIONAL: Her present weight was 241 pounds. At her height of 5 foot 4.25 inches, her ideal body weight is 144 pounds. Her BMI was 41.1 HEENT: Denies any active troubles with hearing or vision. No troubles with swallowing. ENDOCRINE: No diabetes. No hypothyroidism. CARDIOVASCULAR: No reports of palpitations or heart attacks or chest pain. Has hypertension. Has hyperlipidemia. RESPIRATORY: Has daytime somnolence including snoring and sleep apnea. No asthma. Has seasonal ALLERGIES. GI: Denies any bright red blood per rectum or constipation. Does have gastroesophageal reflux disease. MUSCULOSKELETAL: Has lower back pain, left hip and right knee pain. No scoliosis. History of left heel spur. NEURO: Has headaches. No seizure disorders. PSYCH: Has depression without suicidal ideation. Has anxiety. RHEUMATOLOGIC: No lupus. No rheumatoid arthritis. HEMATOLOGIC: Denies any abnormal bleeding or bruising. No personal history of DVTs. SKIN: No rash. No skin cancer. PHYSICAL EXAM: VITAL SIGNS: Height 5 foot 4.25 inches, weight 174 pounds. BMI 29.9 Vital Signs Temp 98.2 F 10/07/23 16:34 Pulse 80 10/07/23 16:34 Resp BP 145/85 10/07/23 16:34 Pulse Ox FiO2 GENERAL: Well-developed female in no acute distress. HEENT: No scleral icterus. Extraocular movements grossly intact. Hears conversational speech. No nasal drainage. NECK: Supple without lymphadenopathy. CHEST: Nonlabored respirations with equal bilateral excursions. CARDIOVASCULAR: Regular rate. Distal 2+ pulses. ABDOMEN: No peritonitis. No hernia.No active redness. MUSCULOSKELETAL: No clubbing, cyanosis. NEURO: No focal or lateralizing signs. Cranial nerves 2 through 12 grossly within normal limits. PSYCH: Appropriate affect. Alert and oriented to person, place and time. SKIN: Good skin turgor. Well perfused. LABS: Reviewed. Cholesterol elevated. PTH elevated. Selenium elevated EGD FINDINGS: No acute ulceration found along her sleeve. No corkscrewing sleeve gastrectomy. Squamocolumnar junction at 37 cm from the incisors. Diaphragmatic hiatus at 40 cm. Hiatal hernia 3 cm, fixed. LA grade B erosive esophagitis. Cold forceps biopsies obtained of the esophagus, stomach, duodenum. Chronic gastritis. COLON FINDINGS: Aronchick preparation quality scale 1 (1-5) Internal hemorrhoids, grade 1 No external prolapsed hemorrhoids. Arteriovenous malformation, 4 mm, hepatic flexure No adenomatous polyps. Cold forceps biopsies obtained for microscopic colitis Final Pathologic Diagnosis A. DUODENUM, BIOPSY: Benign small bowel mucosa with Brunners gland hyperplasia. Negative for histologic features of celiac disease. B. STOMACH, ANTRUM, BIOPSY: Mild to moderate chronic and focally active gastritis. Immunostain with appropriate control negative for Helicobacter organisms. C. ESOPHAGUS, BIOPSY: Reactive squamous epithelium with focal junctional glandular epithelium having mild chronic inflammation. Negative for Barretts esophagus. D. RANDOM COLON, BIOPSY: Colonic mucosa with maintained crypt architecture and no evidence of microscopic colitis. Focal incidental low grade epithelial dysplasia/adenomatous change present. Negative for high grade dysplasia or invasive malignancy. ASSESSMENT: 1. Morbid obesity due to excess calories 2. Body mass index 41.2 down to 29.9 3. Seasonal ALLERGIES. 4. Obstructive sleep apnea. 5. Osteoarthritis of the hips 6. Hypertensive heart disease. 7. Gastroesophageal reflux disease, resolved 8. Anxiety. 9. Depression. 10. Hyperlipidemia. 11. Degenerative joint disease. 12. Asthma. 13. Restless leg syndrome. 14. Family history of morbid obesity. 15. Diaphragmatic hiatal hernia. 16. Iron deficiency. 17. Status post sleeve gastrectomy 18. Thiamine deficiency 19. Copper excess. 20. Colon adenoma 21. Scattered diverticulosis 22. Colitis 23. Chronic gastritis 24. Arteriovenous malformation 25. Secondary hyperparathyroidism 26. Selenium elevated. 27. Hiatal hernia PLAN: 1. Overall, she had symptoms of colitis include abdominal pain. Features of hiatal hernia were reviewed without colitis. 2. Recommend vitamin D supplement including increase calcium 1200 mg for secondary hyperparathyroidism. 3. Recommend monitor selenium excess foods. Objective - Vital Signs Vital signs: Vital Signs Temp 98.2 F 10/07/23 16:34 Pulse 80 10/07/23 16:34 Resp BP 145/85 10/07/23 16:34 Pulse Ox FiO2 Intake & Output 10/06/23 10/07/23 10/07/23 18:59 06:59 18:59 Weight 78.925 kg Assessment/Plan Plan: Date: 10/07/23 Initial Weight: 105.885 kg Initial BMI: 40.0 Current Weight: 78.925 kg Current BMI: 29.8 Type of Surgery: Total Volume in Band: Previous Volume: Volume Removed: Volume Added: Band Size:
[2023-10-07 16:56] VITALS: BP 145/85; PULSE 80; TEMP 98.2; BMI 29.8
== END ==
LOC: BARWHC3 15:45
PROVIDERS: ATTEND Surgery Plastic and Reconstructive Surgery
DX: E66.01 Morbid (severe) obesity due to excess calories (principal); G47.33 Obstructive sleep apnea (adult) (pediatric); M16.0 Bilateral primary osteoarthritis of hip; I11.9 Hypertensive heart disease without heart failure; K21.9 Gastro-esophageal reflux disease without esophagitis; F41.9 Anxiety disorder, unspecified; F32.A Depression, unspecified; E78.5 Hyperlipidemia, unspecified; M51.9 Unspecified thoracic, thoracolumbar and lumbosacral intervertebral disc disorder; M19.90 Unspecified osteoarthritis, unspecified site; J45.909 Unspecified asthma, uncomplicated; G25.81 Restless legs syndrome; D50.9 Iron deficiency anemia, unspecified; K44.9 Diaphragmatic hernia without obstruction or gangrene; E51.9 Thiamine deficiency, unspecified; D12.6 Benign neoplasm of colon, unspecified; K57.90 Diverticulosis of intestine, part unspecified, without perforation or abscess without bleeding; K52.9 Noninfective gastroenteritis and colitis, unspecified; E59 Dietary selenium deficiency; K29.50 Unspecified chronic gastritis without bleeding; Q27.30 Arteriovenous malformation, site unspecified; E21.1 Secondary hyperparathyroidism, not elsewhere classified; Z68.29 Body mass index [BMI] 29.0-29.9, adult; Z98.84 Bariatric surgery status; Z83.49 Family history of other endocrine, nutritional and metabolic diseases; Z79.899 Other long term (current) drug therapy
CPT/HCPCS: 99211

== ENCOUNTER → 2024-02-12 | Outpatient (CLI) | payer MEDICAID, OTHER ==
--- NOTE | 2024-02-12 13:24 | XR ---
EXAMINATION TYPE: XR shoulder complete 3 views RT DATE OF EXAM: 02/12/2024 Comparison: None Clinical History: 53-year-old female M75.21 BICIPITAL TENDINITIS, RIGHT SHOULDER Findings: Mild degenerative change but humeral joint with inferior humeral head spurring. AC joint is intact. N o acute fracture, subluxation, or dislocation. Visualized right hemithorax is clear. Impression: Mild right glenohumeral joint OA. No acute osseous abnormality seen.
== END | disposition home or self-care (01) ==
LOC: RADXRMAIN 11:13
PROVIDERS: ATTEND Family Medicine
DX: M19.011 Primary osteoarthritis, right shoulder (principal); M75.21 Bicipital tendinitis, right shoulder

== ENCOUNTER → 2024-04-25 | Outpatient (CLI) | payer MEDICAID, OTHER ==
[2024-04-25 17:13] LABS: Basophils # (A) 0.04 X 10*3/uL (0.00-0.10); Basophils % (A) 0.9 %; Eosinophils # (A) 0.31 X 10*3/uL (0.04-0.35); Eosinophils % (A) 6.8 %; HCT 40.6 % (37.2-46.3); HGB 12.9 g/dL (12.0-15.0); Lymphocytes # (A) 1.72 X 10*3/uL (0.90-5.00); Lymphocytes % (A) 37.8 %; MCH 29.5 pg (27.0-32.0); MCHC 31.8 g/dL (32.0-37.0); MCV 92.7 FL (80.0-97.0); Mean Platelet Volume 11.3 FL (9.5-12.2); Monocytes # (A) 0.36 X 10*3/uL (0.20-1.00); Monocytes % (A) 7.9 %; NRBC Per 100 WBC 0 X 10*3/uL (0.00-0.01); Neutrophils # (A) 2.11 X 10*3/uL (1.80-7.70); Neutrophils % (A) 46.4 %; Platelet Count 240 X 10*3/uL (140-440); RBC 4.38 X 10*6/uL (4.10-5.20); RDW 12.1 % (11.5-14.5); WBC 4.55 X 10*3/uL (4.50-10.00)
[2024-04-25 18:02] LABS: ALT 12 U/L (8-44); AST 19 U/L (13-35); Albumin 4.2 g/dL (3.8-4.9); Albumin/Globulin Ratio 1.91 Ratio (1.60-3.17); Alkaline Phosphatase 84 U/L (41-126); Calcium 9.3 mg/dL (8.7-10.3); Carbon Dioxide 26.7 mmol/L (21.6-31.8); Chloride 104 mmol/L (96-109); Chol/HDL Ratio 2.65 Ratio; Globulin 2.2 g/dL (1.6-3.3); Glucose 99 mg/dL (70-110); LDL Cholesterol,Calculated 128.8 mg/dL (0.0-131.0); Potassium 4.5 mmol/L (3.5-5.5); Sodium 142 mmol/L (135-145); Total Bilirubin 0.3 mg/dL (0.3-1.2); Total Protein 6.4 g/dL (6.2-8.2); VLDL Calculation 18.68 mg/dL (5.00-40.00)
== END | disposition home or self-care (01) ==
LOC: LABWHC1 08:26
PROVIDERS: ATTEND Nurse Practitioner Family
DX: Z00.00 Encounter for general adult medical examination without abnormal findings (principal)
CPT/HCPCS: 36415; 80053; 80061; 82306; 84443; 84481; 85025

== ENCOUNTER → 2024-05-04 | Outpatient (CLI) | payer MEDICAID ==
--- NOTE | 2024-05-31 09:04 | MM ---
Reason for Exam: Screening (asymptomatic). Last mammogram was performed 1 year(s) and 5 month(s) ago. Patient History: Menarche at age 11. First Full-Term at age 20. Postmenopausal. Currently using Estrogen, starting at age 47. Hormonal Contraceptives for 4 years from age 15 until age 19. Risk Values: Gabriela 5 year model risk: 1.0%. NCI Lifetime model risk: 7.5%. Prior Study Comparison: 09/10/2010 Bilateral Screening Mammogram, [facility]. 03/08/2013 Bilateral Diagnostic Mammogram, [facility]. 10/01/2020 Bilateral Screening Mammogram, [facility]. 12/10/2022 Bilateral Screening Mammogram, [facility]. Tissue Density: The breasts are almost entirely fatty. Findings: Analyzed By CAD. Right breast: There is no suspicious group of microcalcifications or new suspicious mass. Left breast: There is no suspicious group of microcalcifications or new suspicious mass. Overall Assessment: Negative, BI-RAD 1 Management: Screening Mammogram of both breasts in [address] [facility] will attempt to contact patient to return for supplemental views and ultrasound if indicated. Patient should continue monthly self-breast exams. A clinical breast exam by your physician is recommended on an annual basis. This exam should not preclude additional follow-up of suspicious palpable abnormalities. Note on Gabriela scores and lifetime risk: 1. A Gabriela score greater than 3% is considered moderate risk. If this is the case, consider specialist referral to assess eligibility for a risk reducing agent. 2. If overall lifetime risk for the development of breast cancer is 20% or higher, the patient may qualify for future screening with alternating mammogram and breast MRI. Electronically signed and approved by: Jonas Kathleen DO
== END | disposition home or self-care (01) ==
LOC: RADMAMWWP 12:00
PROVIDERS: ATTEND Family Medicine
DX: Z12.39 Encounter for other screening for malignant neoplasm of breast
CPT/HCPCS: 77063; 77067

== ENCOUNTER → 2024-06-22 | Outpatient (CLI) | payer MEDICAID ==
--- NOTE | 2024-06-22 16:56 | CT ---
EXAMINATION TYPE: CT sinus wo con CT DLP: 441.0 mGycm, Automated exposure control for dose reduction was used. DATE OF EXAM: 06/22/2024 4:44 PM COMPARISON: None. CLINICAL INDICATION: Female, 53 years old with history of J32.9 CHRONIC SINUSITIS; , Chronic sinusiti s TECHNIQUE: Multiple thin axial images were obtained through the paranasal sinuses without the use of IV contrast. Additional coronal and sagittal reformatted images were submitted for evaluation. Contrast used: none Oral contrast used: none FINDINGS: Frontal sinuses: Normally developed and aerated. Frontal Recess: Clear Maxillary Sinuses: Normally developed mild mucosal thickening along the inferior aspect of the left m axillary sinus. Maxillary Infundibula([facility]): Clear, left Luigi cells identified. Osseous spurring on the right. Ethmoid sinuses: Normally developed and aerated. Ethmoidal notch: Sphenoid sinuses: Normally developed and aerated. There is sphenoid sinus pneumatization without evid ence of dehiscence. No dehiscence of carotid canal. No evidence of optic nerve dehiscence within the sphenoid sinus. Sphenoethmoidal recesses: Clear. Nasal septum: Within normal limits.. Nasal Turbinates: Within normal limits. Mastoid air cells & middle ears: The air cells are clear. The middle ears are grossly unremarkable. Modified Soft tissues & Brain: Partially seen without gross abnormality. Globes are intact. Other: Cribriform plate demonstrates symmetric Keros classification type 2 cribriform plate. No evidence of bony dehiscence of skull base. Lamina papyracea is intact without evidence of remote orbital fracture or orbital prolapse into the e thmoid sinus. IMPRESSION: 1. Minimal paranasal sinus disease. 2. The ostiomeatal units, frontonasal and sphenoethmoidal recesses are clear. [facility], , 06/22/2024 4:54 PM
== END | disposition home or self-care (01) ==
LOC: RADCTMAIN 16:02
PROVIDERS: ATTEND Otolaryngology
DX: J01.01 Acute recurrent maxillary sinusitis (principal)
CPT/HCPCS: 70486

== ENCOUNTER → 2025-02-01 | Outpatient (CLI) | payer MEDICAID ==
[2025-02-01 17:12] VITALS: BP 129/77; PULSE 79; RESP 16; TEMP 97.8; BMI 30.5
--- NOTE | 2025-02-01 17:55 | P.BASOAP ---
Subjective Progress Note Date: 02/01/25 She is under much stress. SHe is a new grandmother. She is under stress with her personal life. Not eating a regular times. Eats one meal a day. She has heartburn. She reports pressure along the chest. Lowest is 140 pounds now 178 pounds. Fiber stopped her diarrhea. She has hiatal hernia. No food journal. EGD for dysphagia. Objective - Vital Signs Vital signs: Vital Signs Temp 97.8 F 02/01/25 17:10 Pulse 79 02/01/25 17:10 Resp 16 02/01/25 17:10 BP 129/77 02/01/25 17:10 Pulse Ox FiO2 Intake & Output 01/31/25 02/01/25 02/01/25 18:59 06:59 18:59 Weight 80.739 kg Assessment/Plan Plan: Date: 02/01/25 Initial Weight: 105.885 kg Initial BMI: 40.0 Current Weight: 80.739 kg Current BMI: 30.5 Type of Surgery: Total Volume in Band: Previous Volume: Volume Removed: Volume Added: Band Size:
== END ==
LOC: BARWHC3 16:21
PROVIDERS: ATTEND Surgery Plastic and Reconstructive Surgery
DX: E66.01 Morbid (severe) obesity due to excess calories (principal); Z68.30 Body mass index [BMI] 30.0-30.9, adult
CPT/HCPCS: 99211

== ENCOUNTER → 2025-02-06 | Outpatient (CLI) | payer MEDICAID ==
[2025-02-06 13:47] LABS: INR 0.9 (<1.2); Partial Thromboplastin Time 22.1 sec (22.0-30.0); Prothrombin Time 10.4 sec (10.0-12.5)
[2025-02-06 18:45] LABS: HCT 36.1 % (37.2-46.3); HGB 11.3 g/dL (12.0-15.0); MCH 27.4 pg (27.0-32.0); MCHC 31.3 g/dL (32.0-37.0); MCV 87.6 FL (80.0-97.0); Mean Platelet Volume 11.5 FL (9.5-12.2); NRBC Per 100 WBC 0 X 10*3/uL (0.00-0.01); Platelet Count 219 X 10*3/uL (140-440); RBC 4.12 X 10*6/uL (4.10-5.20); RDW 12.2 % (11.5-14.5); WBC 6.18 X 10*3/uL (4.50-10.00)
[2025-02-06 20:14] LABS: Prealbumin 21.8 mg/dL (18.0-42.0)
[2025-02-06 20:43] LABS: % Iron Saturation 13.66 (12.00-45.00); ALT 11 U/L (8-44); AST 20 U/L (13-35); Albumin 3.9 g/dL (3.8-4.9); Albumin/Globulin Ratio 2.05 Ratio (1.60-3.17); Alkaline Phosphatase 85 U/L (41-126); Blood Urea Nitrogen 22.1 mg/dL (9.0-27.0); Carbon Dioxide 22.9 mmol/L (21.6-31.8); Chloride 105 mmol/L (96-109); Chol/HDL Ratio 2.66 Ratio; Ferritin 17.9 ng/mL (10.0-291.0); Globulin 1.9 g/dL (1.6-3.3); Glucose 78 mg/dL (70-110); Iron 56 UG/DL (50-170); LDL Cholesterol,Calculated 118.3 mg/dL (0.0-131.0); Phosphorus 2.9 mg/dL (2.4-5.1); Potassium 3.9 mmol/L (3.5-5.5); Sodium 140 mmol/L (135-145); Total Bilirubin 0.3 mg/dL (0.3-1.2); Total Iron Binding Capacity 410 UG/DL (228-460); Total Protein 5.8 g/dL (6.2-8.2); VLDL Calculation 12.66 mg/dL (5.00-40.00)
[2025-02-07 09:23] LABS: Zinc, Serum 80 ug/dL (60-130)
[2025-02-08 06:26] LABS: Vitamin A 67 ug/dL (38-106)
== END | disposition home or self-care (01) ==
LOC: LABWHC1 12:58
PROVIDERS: ATTEND Surgery Plastic and Reconstructive Surgery
DX: E55.9 Vitamin D deficiency, unspecified (principal); E89.1 Postprocedural hypoinsulinemia; E44.0 Moderate protein-calorie malnutrition; E45 Retarded development following protein-calorie malnutrition; D50.8 Other iron deficiency anemias; D50.9 Iron deficiency anemia, unspecified; K74.1 Hepatic sclerosis; N19 Unspecified kidney failure; K50.90 Crohn's disease, unspecified, without complications; T56.894A Toxic effect of other metals, undetermined, initial encounter
CPT/HCPCS: 36415; 80053; 80061; 82306; 82525; 82607; 82728; 82746; 83036; 83540; 83550; 83735; 83970; 84100; 84134; 84255; 84425; 84443; 84590; 84630; 85027; 85610; 85730